=== PATIENT | male | born 1960 | race Caucasian/White ===

== ENCOUNTER 2018-02-17 09:44 | Inpatient (IN) | payer OTHER ==
[2018-02-17] MEDS ORDERED: RX INFO: IV CONTRAST WAS GIVEN 1 EACH MISC MISCELLANE PRN (10:19)
[2018-02-17] MEDS ORDERED: KETOROLAC 30 MG/ML 1 ML VIAL IVP STA (10:20)
--- NOTE | 2018-02-17 10:24 | ED ---
General Adult HPI - General Chief complaint: Skin/Abscess/Foreign Body Stated complaint: POSS FISTULA ON REAREND Time Seen by Provider: 02/17/18 10:15 Source: patient, RN notes reviewed, old records reviewed Mode of arrival: ambulatory Limitations: no limitations - History of Present Illness Initial comments: 57-year-old male presents with pain and swelling near his rectum. Patient states that the symptoms have been present for the past several days. He did develop subjective fever and chills over the past 48 hours. He's had no pain with defecation. No dysuria. No abdominal pain. No scrotal pain or swelling. Patient has no history of diabetes. He is otherwise healthy. He does have a remote history of perirectal fistula which was surgically removed according to the patient approximately 12-14 years ago. No chest pain or shortness of breath. No nausea vomiting or diarrhea. - Related Data Home Medications Medication Instructions Recorded Confirmed Ibuprofen [Motrin Ib] 800 mg PO TID PRN 02/17/18 02/17/18 Allergies Allergy/AdvReac Type Severity Reaction Status Date / Time No Known Allergies Allergy Verified 02/17/18 10:00 Review of Systems ROS Statement: Those systems with pertinent positive or pertinent negative responses have been documented in the HPI. ROS Other: All systems not noted in ROS Statement are negative. Past Medical History Past Medical History: No Reported History History of Any Multi-Drug Resistant Organisms: None Reported Additional Past Surgical History / Comment(s): hemmorhoid surgery, Past Psychological History: No Psychological Hx Reported Smoking Status: Current every day smoker Past Alcohol Use History: Occasional Past Drug Use History: None Reported General Exam Limitations: no limitations General appearance: alert, in no apparent distress Head exam: Present: atraumatic, normocephalic Eye exam: Present: normal appearance, PERRL ENT exam: Present: normal exam Neck exam: Present: normal inspection. Absent: tenderness, meningismus Respiratory exam: Present: normal lung sounds bilaterally. Absent: respiratory distress Cardiovascular Exam: Present: normal rhythm, tachycardia GI/Abdominal exam: Present: soft. Absent: distended, tenderness Rectal exam: Present: tenderness, other (Large area of cellulitis in the right gluteal region, adjacent to the rectum. There is surrounding induration and cellulitis. With central fluctuance. There is adjacent cellulitis in the left gluteal region with 1 cm area of fluctuance and minimal purulent drainage.) Extremities exam: Present: normal inspection, full ROM, tenderness Back exam: Present: normal inspection. Absent: full ROM, tenderness Neurological exam: Present: alert, oriented X3 Psychiatric exam: Present: normal affect, normal mood Skin exam: Present: warm, dry Course Vital Signs 02/17/18 02/17/18 09:46 12:45 Temperature 97.8 F Pulse Rate 107 H 83 Respiratory 20 16 Rate Blood Pressure 136/100 150/90 O2 Sat by Pulse 99 97 Oximetry Medical Decision Making - Medical Decision Making 57-year-old with fever, and concern for perirectal abscess. Laboratory studies are obtained, white blood cell count is mildly elevated at 12.2, platelets are also reactive. Lactic acid is normal. CMP unremarkable. Blood cultures pending. CT is obtained which does show soft tissue gas, and concern for perirectal abscess. Case discussed with Dr. Banks, who will admit the patient. Patient will be continued on IV antibiotics. Diagnosis: Perirectal abscess. - Lab Data Result diagrams: 02/17/18 10:42 02/17/18 10:42 Lab Results 02/17/18 02/17/18 02/17/18 Range/Units 10:42 10:42 10:42 WBC 12.2 H (3.8-10.6) k/uL RBC 4.64 (4.30-5.90) m/uL Hgb 14.0 (13.0-17.5) gm/dL Hct 42.9 (39.0-53.0) % MCV 92.3 (80.0-100.0) fL MCH 30.2 (25.0-35.0) pg MCHC 32.7 (31.0-37.0) g/dL RDW 12.8 (11.5-15.5) % Plt Count 549 H (150-450) k/uL Neutrophils % 73 % Lymphocytes % 17 % Monocytes % 6 % Eosinophils % 2 % Basophils % 1 % Neutrophils # 8.9 H (1.3-7.7) k/uL Lymphocytes # 2.1 (1.0-4.8) k/uL Monocytes # 0.7 (0-1.0) k/uL Eosinophils # 0.3 (0-0.7) k/uL Basophils # 0.1 (0-0.2) k/uL Sodium 142 (137-145) mmol/L Potassium 4.2 (3.5-5.1) mmol/L Chloride 103 (98-107) mmol/L Carbon Dioxide 27 (22-30) mmol/L Anion Gap 12 mmol/L BUN 12 (9-20) mg/dL Creatinine 0.50 L (0.66-1.25) mg/dL Est GFR (CKD-EPI)AfAm >90 (>60 ml/min/1.73 sqM) Est GFR (CKD-EPI)NonAf >90 (>60 ml/min/1.73 sqM) Glucose 73 L (74-99) mg/dL Plasma Lactic Acid Hardeep 0.9 (0.7-2.0) mmol/L Calcium 8.7 (8.4-10.2) mg/dL Total Bilirubin 0.2 (0.2-1.3) mg/dL AST 20 (17-59) U/L ALT 26 (21-72) U/L Alkaline Phosphatase 72 (38-126) U/L Total Protein 6.2 L (6.3-8.2) g/dL Albumin 3.1 L (3.5-5.0) g/dL Disposition Clinical Impression: Perirectal abscess Disposition: ADMITTED IP TO THIS [facility] Condition: Stable Is patient prescribed a controlled substance at d/c from ED?: No Referrals: None,Stated [Primary Care Provider] - 1-2 days Decision to Admit Reason: Admit from EC Decision Date: 02/17/18 Decision Time: 13:10
[2018-02-17 11:08] LABS: Basophils # (A) 0.1 k/uL (0-0.2); Basophils % (A) 1 %; Eosinophils # (A) 0.3 k/uL (0-0.7); Eosinophils % (A) 2 %; HCT 42.9 % (39.0-53.0); Lymphocytes # (A) 2.1 k/uL (1.0-4.8); Lymphocytes % (A) 17 %; MCH 30.2 pg (25.0-35.0); MCHC 32.7 g/dL (31.0-37.0); MCV 92.3 fL (80.0-100.0); Mean Platelet Volume 6.7; Monocytes # (A) 0.7 k/uL (0-1.0); Monocytes % (A) 6 %; Neutrophils # (A) 8.9 k/uL (1.3-7.7); Neutrophils % (A) 73 %; Platelet Count 549 k/uL (150-450); RBC 4.64 m/uL (4.30-5.90); RDW 12.8 % (11.5-15.5); WBC 12.2 k/uL (3.8-10.6)
[2018-02-17 11:14] LABS: ALT 26 U/L (21-72); AST 20 U/L (17-59); Albumin 3.1 g/dL (3.5-5.0); Alkaline Phosphatase 72 U/L (38-126); Anion Gap 12 mmol/L; Blood Urea Nitrogen 12 mg/dL (9-20); Calcium 8.7 mg/dL (8.4-10.2); Carbon Dioxide 27 mmol/L (22-30); Chloride 103 mmol/L (98-107); Glucose 73 mg/dL (74-99); Potassium 4.2 mmol/L (3.5-5.1); Sodium 142 mmol/L (137-145); Total Bilirubin 0.2 mg/dL (0.2-1.3); Total Protein 6.2 g/dL (6.3-8.2)
[2018-02-17] MEDS ORDERED: LEVOFLOXACIN 500MG-D5W PMX 500 MG in DEXTROSE/WATER 1 100ML.BAG IVPB STA (11:33)
[2018-02-17] MEDS ORDERED: metroNIDAZOLE-NS PMX 500 MG in SALINE 1 100ML.BAG IVPB STA (11:33)
[2018-02-17] MEDS ORDERED: SODIUM CHLORIDE 0.9% 500 ML IV ONE (11:38)
--- NOTE | 2018-02-17 11:46 | CT ---
EXAMINATION TYPE: CT abdomen pelvis w con DATE OF EXAM: 02/17/2018 COMPARISON: NONE HISTORY: Perirectal pain CT DLP: 411.9 mGycm Automated exposure control for dose reduction was used. TECHNIQUE: Helical acquisition of images was performed from the lung bases through the pelvis. CONTRAST: Performed without Oral Contrast and with IV Contrast, patient injected with 100 mL of Isovue 300. FINDINGS: LUNG BASES: 6 mm right basilar pulmonary nodule contains a peripheral punctate calcification in could relate to a partially calcified granuloma. LIVER/GB: No significant abnormality is appreciated. No cholelithiasis. PANCREAS: No significant abnormality is seen. No ductal dilatation. SPLEEN: No significant abnormality is seen. Small splenule seen adjacent to the sleetmute spleen. ADRENALS: No significant abnormality is seen. KIDNEYS: 7 millimeters too small to accurately characterize left renal lesion is low-density and coul d represent a cyst similarly on the right there is a 6 mm lesion that is too small to accurately patrice acterize within the midpole anteriorly. No hydronephrosis. ADENOPATHY: No greater than 1 cm short axis lymph node is seen within the abdomen or pelvis. REPRODUCTIVE ORGANS: No significant abnormality is seen URINARY BLADDER: Circumferential wall thickening may relate to incomplete distention of the surround ing inflammatory change. Alternatively cystitis is possible. OSSEOUS STRUCTURES: Mild degenerative change of the spine. Osseous structures appear intact. BOWEL: There is an air and fluid containing multiloculated perirectal abscess beginning in the right paracentral gluteal fold (with the fluid containing area in this region measuring only 1.2 by 1.5 cm ). There a surrounding phlegmonous changes and foci of subcutaneous emphysema with a larger component on image 83 measuring approximately 2.9 x 1.7 cm. Superior to this, with a phlegmonous area of conne ction, there is an additional component surrounding the rectum measuring approximately 4.9 x 2.2 cm o n image 76 along the anal verge. This extends around the rectum with air seen left laterally and ante riorly on images 72 and 70 with air collection anteriorly measuring 2.4 cm posterior to the seminal v esicles. There is circumferential rectal wall thickening and inflammatory fat stranding in the mesore ctal fat. Inflammatory fat stranding extends upward and there is haziness throughout the entirety of the mesentery that could relate to mild mesenteric congestion or sequela of inflammatory change. No o ther focal areas of bowel wall thickening are appreciated within the limitations of this noncontrast enhanced exam. The stomach is nondistended likely accounting for the gastric fold thickening. No dila lizette bowel. OTHER: Normal calcific atheromatous changes are seen of the abdominal aorta and its branches. IMPRESSION: 1. MULTILOCULATED FLUID COLLECTION WITH A SINUS TRACT EXTENDING FROM THE RIGHT GLUTEAL FOLD TO SURROU ND THE RECTUM AT THE ANAL VERGE AND EXTENDING CRANIALLY TO THE LEVEL OF THE SEMINAL VESICLES. THIS IS PREDOMINANTLY PHLEGMONOUS CHANGE AND AIR CONTAINING WITH ONLY A SMALL AMOUNT OF FLUID. THERE IS RESU LTANT CIRCUMFERENTIAL RECTAL WALL THICKENING INDICATING PROCTITIS AND PERIRECTAL ABSCESS WITH SURROUN DING INFLAMMATORY FAT STRANDING. NO EVIDENCE OF BOWEL OBSTRUCTION. 2. PROBABLE RIGHT BASILAR PARTIALLY CALCIFIED PULMONARY GRANULOMA. FOLLOW-UP COULD BE PERFORMED IN 6 MONTHS TO ASSESS FOR STABILITY.
[2018-02-17] MEDS: SODIUM CHLORIDE 0.9% 1,000 ML IV SCH ×2 (12:41→23:50)
[2018-02-17] MEDS ORDERED: NALOXONE 0.4 MG/ML 1 ML VIAL IV PRN (13:05)
[2018-02-17] MEDS ORDERED: PIPERACILLIN-TAZOBACTAM 3.375 GM in DEXTROSE/WATER 1 50ML.BAG IVPB STA (13:05)
[2018-02-17] MEDS ORDERED: ACETAMINOPHEN TAB 325 MG TAB PO PRN (13:05)
[2018-02-17] MEDS: MORPHINE SULFATE 4 MG/ML SYRINGE IV PRN ×2 (14:41→18:22)
[2018-02-17 14:53] VITALS: BMI 19.8
[2018-02-17] MEDS ORDERED: LORazepam 2 MG/ML INJ IV PRN ×3 (16:45)
[2018-02-17] MEDS: PIPERACILLIN-TAZOBACTAM 3.375 GM in DEXTROSE/WATER 1 50ML.BAG IVPB SCH ×2 (17:06→23:49)
[2018-02-17] MEDS ORDERED: ALPRAZolam 0.25 MG TAB PO PRN (20:30)
[2018-02-17] MEDS ORDERED: TEMAZEPAM 15 MG CAP PO PRN (20:30)
--- NOTE | 2018-02-17 21:45 | CONS ---
CONSULTATION REASON FOR CONSULTATION: Advice regarding history of ETOH and other multiple medical issues, requested by Dr. Banks. HISTORY OF PRESENT ILLNESS: This 57-year-old gentleman with a past medical history of no significant medical issues except hemorrhoid surgery and fistula repair and possible perirectal abscess about 14 years ago, not being followed by a primary physician in the outpatient setting, was complaining of pain and swelling in the rectal area for the last several days. Because of increasing pain, especially on the right side, the patient came to [facility] and was admitted for further evaluation and treatment. Perirectal abscess was suspected and patient was admitted for further evaluation and treatment. Abdominal/pelvis CT scan was also done which showed a multi-loculated fluid collection in the sinus with a sinus tract extending from the right gluteal fold to surround the rectum at the anal verge and extending cranially to the level of the seminal vesicles. The patient also has a significant history of smoking and alcohol. Patient drinks about 4-5 drinks a day. PAST MEDICAL HISTORY: 1. History of previous hemorrhoid surgery. 2. Fistula repair. 3. Perirectal abscess. MEDICATIONS: Ibuprofen p.r.n. ALLERGIES: NONE. FAMILY HISTORY: History of CVA, TIA, diabetes mellitus. SOCIAL HISTORY: History of smoking. History of alcohol. REVIEW OF SYSTEMS: ENT: No diminished hearing. No diminished vision. CARDIOVASCULAR SYSTEM: No angina, palpitations. RESPIRATORY SYSTEM: No cough, hemoptysis. GI: Perirectal abscess present. : No dysuria or retention. NERVOUS SYSTEM: No numbness, weakness. ALLERGY/IMMUNOLOGY: No asthma, hayfever. MUSCULOSKELETAL: As mentioned earlier. HEMATOLOGY/ONCOLOGY: No history of anemia. ENDOCRINE: No history of diabetes, hypothyroidism. CONSTITUTIONAL: As mentioned earlier. DERMATOLOGY: Negative. RHEUMATOLOGY: Negative. PSYCHIATRY: As mentioned earlier. PHYSICAL EXAMINATION: Patient alert and oriented x3. ABDOMEN: Perirectal abscess present. ASSESSMENT: 1. Perirectal abscess with possible sepsis. 2. Severe pain. 3. History of previous hemorrhoid surgery and fistula repair. 4. Increased white count. 5. History of nicotine dependence. 6. History of ethanol. RECOMMENDATIONS AND DISCUSSION: In this 57-year-old gentleman who presented with multiple medical issues, we will monitor the patient closely, continue the current medications, continue symptomatic treatment, broad-spectrum IV antibiotics. I would also recommend DVT prophylaxis. Symptomatic treatment of the pain. I would also recommend starting the patient on Zosyn. I would also recommend CIWA protocol as well as smoking cessation advice. We will follow the patient closely with you. Patient may be asked to follow up with a primary physician in the outpatient setting. Thank you for letting us participate in the care of this patient. MMODL / IJN: [id number] /
[2018-02-17] MEDS: NICOTINE 14MG/24HR PATCH TRANSDERM SCH (22:34)
[2018-02-17] MEDS: HEPARIN SODIUM,PORCINE 5,000 UNIT/ML 1 ML VIAL SQ SCH (22:34)
[2018-02-18] MEDS: KETOROLAC 30 MG/ML 1 ML VIAL IVP PRN ×4 (00:51→21:52)
[2018-02-18] MEDS: PANTOPRAZOLE 40 MG TABLET PO SCH (07:45)
[2018-02-18] MEDS: PIPERACILLIN-TAZOBACTAM 3.375 GM in DEXTROSE/WATER 1 50ML.BAG IVPB SCH ×3 (07:46→23:34)
[2018-02-18] MEDS: NICOTINE 14MG/24HR PATCH TRANSDERM SCH (07:46)
[2018-02-18 08:19] LABS: Basophils % (A) 0 %; Eosinophils # (A) 0.3 k/uL (0-0.7); Eosinophils % (A) 4 %; HCT 38.3 % (39.0-53.0); HGB 12.3 gm/dL (13.0-17.5); Lymphocytes # (A) 1.9 k/uL (1.0-4.8); Lymphocytes % (A) 22 %; MCH 29.8 pg (25.0-35.0); MCHC 32.1 g/dL (31.0-37.0); MCV 92.6 fL (80.0-100.0); Mean Platelet Volume 6.8; Monocytes # (A) 0.6 k/uL (0-1.0); Monocytes % (A) 7 %; Neutrophils # (A) 5.9 k/uL (1.3-7.7); Neutrophils % (A) 67 %; Platelet Count 553 k/uL (150-450); RBC 4.13 m/uL (4.30-5.90); RDW 12.8 % (11.5-15.5); WBC 8.9 k/uL (3.8-10.6)
[2018-02-18 08:22] LABS: ALT 25 U/L (21-72); AST 15 U/L (17-59); Albumin 2.7 g/dL (3.5-5.0); Alkaline Phosphatase 62 U/L (38-126); Anion Gap 9 mmol/L; Blood Urea Nitrogen 11 mg/dL (9-20); Calcium 8.4 mg/dL (8.4-10.2); Carbon Dioxide 28 mmol/L (22-30); Chloride 102 mmol/L (98-107); Glucose 78 mg/dL (74-99); Potassium 4.1 mmol/L (3.5-5.1); Sodium 139 mmol/L (137-145); Total Bilirubin 0.2 mg/dL (0.2-1.3); Total Protein 5.4 g/dL (6.3-8.2)
[2018-02-18] MEDS ORDERED: LIDOCAINE 1%-EPI 1:100,000 30 ML VIAL SQ STA (09:20)
[2018-02-18] MEDS ORDERED: HYDROmorphone 0.5 MG/0.5 ML SYRINGE IVP STA (09:21)
[2018-02-18] MEDS ORDERED: ONDANSETRON 4 MG/2 ML VIAL IVP STA (09:21)
--- NOTE | 2018-02-18 09:40 | P.GSHP ---
History of Present Illness H&P Date: 02/18/18 Chief Complaint: Right perirectal abscess This a 57-year-old male who has complaints of anal pain and swelling. He is seen in the emergency room found have a right perirectal abscess. He's been admitted to the hospital for treatment. Patient has had a previous perirectal abscess approximately 10 years ago. Past Medical History Past Medical History: No Reported History History of Any Multi-Drug Resistant Organisms: None Reported Additional Past Surgical History / Comment(s): hemmorhoid surgery, fistula repair Past Psychological History: No Psychological Hx Reported Smoking Status: Current every day smoker Past Alcohol Use History: Occasional Past Drug Use History: None Reported - Past Family History Father Family Medical History: CVA/TIA, Diabetes Mellitus Mother Family Medical History: Cancer Brother(s) Family Medical History: Cancer, Myocardial Infarction (VT) Medications and Allergies Home Medications Medication Instructions Recorded Confirmed Type Ibuprofen [Motrin Ib] 800 mg PO TID PRN 02/17/18 02/17/18 History Allergies Allergy/AdvReac Type Severity Reaction Status Date / Time No Known Allergies Allergy Verified 02/17/18 10:00 Surgical - Exam Vital Signs Temp Pulse Resp BP Pulse Ox 97.8 F 107 H 20 136/100 99 02/17/18 09:46 02/17/18 09:46 02/17/18 09:46 02/17/18 09:46 02/17/18 09:46 - General well developed, no distress - Eyes PERRL - ENT normal pinna - Neck no masses - Respiratory normal expansion - Cardiovascular Rhythm: regular - Abdomen Abdomen: soft, non tender - Rectum Right perirectal abscess with induration swelling. Results - Labs 02/18/18 07:37 02/18/18 07:37 Abnormal Lab Results - Last 24 Hours (Table) 02/17/18 02/17/18 02/18/18 Range/Units 10:42 10:42 07:37 WBC 12.2 H (3.8-10.6) k/uL RBC 4.13 L (4.30-5.90) m/uL Hgb 12.3 L (13.0-17.5) gm/dL Hct 38.3 L (39.0-53.0) % Plt Count 549 H 553 H (150-450) k/uL Neutrophils # 8.9 H (1.3-7.7) k/uL Creatinine 0.50 L (0.66-1.25) mg/dL Glucose 73 L (74-99) mg/dL AST (17-59) U/L Total Protein 6.2 L (6.3-8.2) g/dL Albumin 3.1 L (3.5-5.0) g/dL 02/18/18 Range/Units 07:37 WBC (3.8-10.6) k/uL RBC (4.30-5.90) m/uL Hgb (13.0-17.5) gm/dL Hct (39.0-53.0) % Plt Count (150-450) k/uL Neutrophils # (1.3-7.7) k/uL Creatinine 0.62 L (0.66-1.25) mg/dL Glucose (74-99) mg/dL AST 15 L (17-59) U/L Total Protein 5.4 L (6.3-8.2) g/dL Albumin 2.7 L (3.5-5.0) g/dL Diabetes panel 02/17/18 02/18/18 Range/Units 10:42 07:37 Sodium 142 139 (137-145) mmol/L Potassium 4.2 4.1 (3.5-5.1) mmol/L Chloride 103 102 (98-107) mmol/L Carbon Dioxide 27 28 (22-30) mmol/L BUN 12 11 (9-20) mg/dL Creatinine 0.50 L 0.62 L (0.66-1.25) mg/dL Glucose 73 L 78 (74-99) mg/dL Calcium 8.7 8.4 (8.4-10.2) mg/dL AST 20 15 L (17-59) U/L ALT 26 25 (21-72) U/L Alkaline Phosphatase 72 62 (38-126) U/L Total Protein 6.2 L 5.4 L (6.3-8.2) g/dL Albumin 3.1 L 2.7 L (3.5-5.0) g/dL Calcium panel 02/17/18 02/18/18 Range/Units 10:42 07:37 Calcium 8.7 8.4 (8.4-10.2) mg/dL Albumin 3.1 L 2.7 L (3.5-5.0) g/dL Pituitary panel 02/17/18 02/18/18 Range/Units 10:42 07:37 Sodium 142 139 (137-145) mmol/L Potassium 4.2 4.1 (3.5-5.1) mmol/L Chloride 103 102 (98-107) mmol/L Carbon Dioxide 27 28 (22-30) mmol/L BUN 12 11 (9-20) mg/dL Creatinine 0.50 L 0.62 L (0.66-1.25) mg/dL Glucose 73 L 78 (74-99) mg/dL Calcium 8.7 8.4 (8.4-10.2) mg/dL Adrenal panel 02/17/18 02/18/18 Range/Units 10:42 07:37 Sodium 142 139 (137-145) mmol/L Potassium 4.2 4.1 (3.5-5.1) mmol/L Chloride 103 102 (98-107) mmol/L Carbon Dioxide 27 28 (22-30) mmol/L BUN 12 11 (9-20) mg/dL Creatinine 0.50 L 0.62 L (0.66-1.25) mg/dL Glucose 73 L 78 (74-99) mg/dL Calcium 8.7 8.4 (8.4-10.2) mg/dL Total Bilirubin 0.2 0.2 (0.2-1.3) mg/dL AST 20 15 L (17-59) U/L ALT 26 25 (21-72) U/L Alkaline Phosphatase 72 62 (38-126) U/L Total Protein 6.2 L 5.4 L (6.3-8.2) g/dL Albumin 3.1 L 2.7 L (3.5-5.0) g/dL Assessment and Plan Assessment: Right perirectal abscess. We'll perform incision and drainage.
[2018-02-18] MEDS: HEPARIN SODIUM,PORCINE 5,000 UNIT/ML 1 ML VIAL SQ SCH ×2 (10:27→21:30)
--- NOTE | 2018-02-18 10:29 | P.OP ---
Date of Procedure: 02/18/18 Preoperative Diagnosis: Right perianal abscess Postoperative Diagnosis: Right perianal abscess Procedure(s) Performed: Incision and drainage of right perianal abscess Anesthesia: local Surgeon: Mj Banks Pathology: none sent Condition: stable Disposition: PACU Description of Procedure: The patient was placed on his bed in the lateral position. His hernia was prepped and draped usual fashion. The skin was anesthetized over the abscess site. Using a 15 blade a cruciate incision was made in the skin. Using a pair hemostats the abscess cavity is entered. The wound was packed with wet-to-dry saline gauze. Patient top procedure well.
[2018-02-18] MEDS: SODIUM CHLORIDE 0.9% 1,000 ML IV SCH (16:20)
--- NOTE | 2018-02-18 23:01 | PN ---
PROGRESS NOTE DATE OF SERVICE: 02/18/2018 INTERVAL HISTORY: This 57-year-old gentleman admitted with a perirectal abscess and possible sepsis is being closely monitored. Dr. Banks is following the patient closely. The patient underwent incision and drainage of right perianal abscess by Dr. Banks. No chest pain. No palpitations. No fever. EXAM: Alert and oriented x3. Pulse is 63, blood pressure 139/84, respirations 16, temperature 97.5, pulse ox 97% room air. HEENT: Conjunctivae normal. NECK: No jugular venous distention. CARDIOVASCULAR: S1, S2 muffled. RESPIRATORY: Breath sounds diminished in the bases. No rhonchi. No crackles. ABDOMEN: Soft, nontender. LEGS: No edema. No swelling. NERVOUS SYSTEM: No focal deficits. LABS: WBC 8, hemoglobin 12.3. Cultures are noted. ASSESSMENT: 1. Acute right perirectal abscess with possible sepsis, status post incision and drainage. 2. Severe pain. 3. History of previous hemorrhoid surgery, fistula repair. 4. Increased WBC. 5. History of nicotine dependence. 6. History of EtOH. RECOMMENDATIONS AND DISCUSSION: Recommend to continue current medical management. Continue with antibiotics. Continue the CIWA protocol. There are no signs of withdrawals at this time. However, will continue to monitor. Prognosis guarded. Further recommendations to follow. MMODL / IJN: [id number] /
--- NOTE | 2018-02-19 03:07 | CONS ---
CONSULTATION DATE OF SERVICE: 02/18/2018 REASON FOR CONSULTATION: Left perirectal abscess. HISTORY OF PRESENT ILLNESS: The patient is a 57-year-old male who apparently developed a pimple on the right buttock area about a week ago. The patient said that he has those in the past and they would go away, however, this one did not go away and continued to get bigger and bigger in size and become painful. It was almost 9/10 by the time he presented to the hospital. The patient complaining of some fever. Denies any high-grade, chills. Some nausea but no vomiting. With these symptoms, the patient has been evaluated by the ER physician. The patient did have a CT of abdomen and pelvis completed which shows multiloculated fluid collection with sinus tract extending from the right gluteal floor to surround the rectum at the anal verge and extending to the level of the seminal vesicle. The patient subsequently did have a bedside drainage of this abscess by Dr. Banks. The patient did mention that last night when he was sitting in the bathroom, he did have a gush of blood but there only was some purulent material when the area was drained. Unfortunately no cultures were done. The patient currently being treated with tazobactam. Infectious Disease was consulted for further recommendation regarding antibiotic therapy. REVIEW OF SYSTEMS: CONSTITUTIONAL: Positive for weakness and fever, but denies any chills. EYES: No complaint. ENT: No complaint. RESPIRATORY: No complaint. CARDIOVASCULAR: No complaint. GENITOURINARY: No complaint chest: GASTROINTESTINAL: As per HPI. MUSCULOSKELETAL: No complaint. : As per HPI. PSYCHOLOGICAL: No complaint. NEUROLOGIC: No complaint. PAST MEDICAL HISTORY: No major illnesses. PAST SURGICAL HISTORY: Positive hemorrhoidal surgery. SOCIAL HISTORY: Current smoker. Rarely drinks. No drug use. FAMILY HISTORY: . ALLERGIES: No known drug allergies. MEDICATION: Medications include the patient is currently on Tylenol, Xanax, heparin, Toradol, Ativan, morphine sulfate, Narcan, Protonix, tazobactam, Restoril. EXAMINATION: Blood pressure is 139/84, pulse of 63, temperature 97.5, he is sating 97% on room air. GENERAL DESCRIPTION: Middle-aged male lying in bed in no distress. No tachypnea or accessory muscle of respiration use. HEENT: No pallor or scleral icterus. Oral mucosa is moist. NECK: Trachea central. No thyromegaly. LUNGS: Unlabored breathing. Clear to auscultation anteriorly. HEART: S1-S2 regular ABDOMEN: tenderness. No guarding, no rigidity. No organomegaly. EXTREMITIES: No edema of the feet. Examination of the perirectal area on the left, he did have an area of induration. Packing was removed, was mostly bloody drainage. The area was cleaned and deep cultures were obtained, both aerobic and anaerobic. NEUROLOGIC: Patient is awake, alert, oriented x3. Mood and affect normal. LABS: Hemoglobin 12.2, white count 8.9, admission white count 12.2 with a BUN of 11, creatinine 0.62. Electrolytes have been normal. Liver enzymes are normal. Blood culture so far negative. DIAGNOSTIC IMPRESSION AND PLAN: Patient with right perirectal abscess status post drainage with a CT suggestive of possible extending down to the GI tract with concern for possible fistulous communication not entirely excluded and more likely will need to cover for the gram negative, both aerobes and anaerobes. PLAN: 1. Wound culture has been obtained, both aerobic and anaerobic to guide further antibiotic therapy. 2. Antibiotic currently in the form of Zosyn should provide coverage for the pathogenesis . 3. We will follow up on his clinical condition and culture to further adjust medication if needed. Thank you for this consultation. I will follow this patient along with you. MMODL / IJN: [id number] /
[2018-02-19] MEDS: SODIUM CHLORIDE 0.9% 1,000 ML IV SCH ×2 (05:25→17:16)
[2018-02-19] MEDS: KETOROLAC 30 MG/ML 1 ML VIAL IVP PRN ×3 (05:36→22:43)
[2018-02-19] MEDS: PANTOPRAZOLE 40 MG TABLET PO SCH (07:48)
[2018-02-19] MEDS: PIPERACILLIN-TAZOBACTAM 3.375 GM in DEXTROSE/WATER 1 50ML.BAG IVPB SCH ×3 (07:48→22:43)
[2018-02-19] MEDS: HEPARIN SODIUM,PORCINE 5,000 UNIT/ML 1 ML VIAL SQ SCH ×2 (07:49→20:03)
[2018-02-19] MEDS: NICOTINE 14MG/24HR PATCH TRANSDERM SCH (07:49)
--- NOTE | 2018-02-19 09:02 | P.PN ---
Progress Note - Text Progress Note Date: 02/19/18 The patient states he feels better. He has less perianal pain. On exam there is less induration and swelling of his right perianal abscess. There is some purulent drainage. Patiently receive IV antibiotics and local wound care. We dysphagia discharged home the next 24-48 hours.
--- NOTE | 2018-02-19 16:53 | PN ---
PROGRESS NOTE DATE OF SERVICE: 02/19/2018. REASON FOR FOLLOW UP: Right perirectal abscess. INTERVAL HISTORY: The patient is afebrile. He is currently breathing comfortably. Denies having any chest pain, shortness of breath or cough. No abdominal pain. Pain to the gluteal area has slightly decreased and has drainage on the dressing. At the time, the patient was taking a shower. EXAMINATION: Blood pressure 120/82 with a pulse of 59, temperature 97.2. He is 97% on room air. General description is a middle-aged male lying in bed in no distress. RESPIRATORY SYSTEM: Unlabored breathing. Clear to auscultation anteriorly. HEART: S1, S2. Regular rate and rhythm. ABDOMEN: Soft. No tenderness. RIGHT GLUTEAL AREA: Overall swelling, redness, induration has decreased. No drainage was noticed. LABS: White count normalized to 8.9 with a BUN of 11, creatinine 0.62 . Cultures obtained yesterday are currently pending. DIAGNOSTIC IMPRESSION AND PLAN: Patient with right perirectal abscess, status post drainage. We are waiting for the culture to finalize to determine his discharge antibiotics. Patient at this time will be continued on the Zosyn. Continue with supportive care. MMODL / IJN: [id number] /
--- NOTE | 2018-02-19 18:35 | PN ---
PROGRESS NOTE DATE OF SERVICE: 02/19/2017 This 57-year-old gentleman who was admitted with right perirectal abscess, had incision and drainage. The patient also has history of alcohol but no evidence of withdrawal is evident at this time. No chest pain. No palpitations. No fever. PHYSICAL EXAM: Alert and oriented x3. The pulse is 59, blood pressure 139/84, respirations 16, temperature 98.2, pulse ox 98% on room air HEENT: Conjunctivae normal. Oral mucosa moist. NECK: No JVD. CARDIOVASCULAR: S1, S2. RESPIRATORY: Diminished breath sounds at the bases. No rhonchi, no crackles. ABDOMEN: Soft, nontender. LEGS: No swelling. NERVOUS SYSTEM: No focal deficits. LABS: WBC 8.1, hemoglobin 12.3, albumin 2.7. ASSESSMENT: 1. Acute right perirectal abscess with possible sepsis status post incision and drainage with severe pain. 2. History of previous hemorrhoid surgery. 3. Increased WBC. 4. History of nicotine dependence. 5. History of ETOH. RECOMMENDATIONS: Recommend to continue current management, continue symptomatic treatment. Cultures are negative so far. Continue with IV antibiotics. Closely follow with Dr. Banks. Further recommendations to follow. MMODL / IJN: [id number] /
[2018-02-20] MEDS: PANTOPRAZOLE 40 MG TABLET PO SCH (07:54)
[2018-02-20] MEDS: NICOTINE 14MG/24HR PATCH TRANSDERM SCH (07:54)
[2018-02-20] MEDS: HEPARIN SODIUM,PORCINE 5,000 UNIT/ML 1 ML VIAL SQ SCH ×2 (07:54→20:21)
[2018-02-20] MEDS: PIPERACILLIN-TAZOBACTAM 3.375 GM in DEXTROSE/WATER 1 50ML.BAG IVPB SCH ×3 (07:54→23:02)
[2018-02-20] MEDS: SODIUM CHLORIDE 0.9% 1,000 ML IV SCH ×2 (07:55→20:21)
[2018-02-20] MEDS: KETOROLAC 30 MG/ML 1 ML VIAL IVP PRN ×2 (08:12→21:49)
--- NOTE | 2018-02-20 14:07 | P.PN ---
Progress Note - Text Progress Note Date: 02/20/18 The patient still has complaints of some perianal pain and swelling. Overall he feels better. On exam his vital signs are stable. There is decreased swelling of his perineum. Patient did receive IV antibiotics for his. Glasses. Hopefully he'll be discharged home in 24-48 hours.
--- NOTE | 2018-02-20 17:51 | PN ---
PROGRESS NOTE DATE OF SERVICE: 02/20/2018 REASON FOR FOLLOWUP: Right perirectal abscess. INTERVAL HISTORY: The patient is currently afebrile. He is breathing comfortably. Denies any chest pain, shortness of breath or cough. No abdominal pain. Overall pain to the perirectal area has been decreased. Did have slight drainage morning. EXAMINATION: Blood pressure 126/83 with a pulse of 62, temperature 98.7, 99% on room air. GENERAL DESCRIPTION: A middle-aged male lying in bed in no distress. RESPIRATORY SYSTEM: Unlabored breathing. Clear to auscultation anteriorly. HEART: S1, S2. Regular rate and rhythm. Right gluteal area overall swelling and redness has improved. No induration. No drainage was noticed. LAB: No new lab has been obtained today. The cultures are negative. DIAGNOSTIC IMPRESSION AND PLAN: Patient with a right perirectal abscess. Culture so far negative. Currently on Zosyn. If the cultures remain negative by tomorrow hopefully he can be switched to oral antibiotics with close outpatient followup. Continue supportive care. MMODL / IJN: [id number] /
--- NOTE | 2018-02-20 22:30 | PN ---
PROGRESS NOTE DATE OF SERVICE: 02/20/2018. INTERVAL HISTORY: This 57-year-old gentleman admitted with acute right perirectal abscess is being closely monitored. The white count is normalized. No chest pain. No palpitations. No fever. Cultures are showing beta hemolytic strep group C. No chest pain. No palpitations. No fever. EXAM: Alert, oriented times three. Pulse 60, blood pressure 130/85, respirations 16, temperature 98.2, pulse ox 98% on room air. HEENT conjunctivae normal. Oral mucosa moist. NECK is no jugular venous distention. No carotid bruit. No lymph node enlargement. CARDIOVASCULAR SYSTEM: S1, S2 muffled. RESPIRATION: Breath sounds diminished in the bases. No rhonchi. No crackles. ABDOMEN: Soft, nontender. No mass palpable. LEGS: No edema. No swelling. CENTRAL NERVOUS SYSTEM: No focal deficits. LABS: Reviewed. ASSESSMENT: 1. Acute right perirectal abscess with possible sepsis. 2. Status post incision and drainage with severe pain growing beta-hemolytic strep group C. 3. History of previous hemorrhoid surgery. 4. Increased WBC. 5. History of nicotine dependence. 6. History of EtOH. RECOMMENDATIONS AND DISCUSSION: Recommend to continue current medications, monitoring, management and symptomatic treatment. Otherwise, at this time, I recommend continue broad spectrum IV antibiotics. Guarded prognosis. Further recommendations to follow. MMODL / IJN: [id number] /
[2018-02-21 06:15] VITALS: BP 128/74; PULSE 61; RESP 18; TEMP 97.4
[2018-02-21] MEDS: PIPERACILLIN-TAZOBACTAM 3.375 GM in DEXTROSE/WATER 1 50ML.BAG IVPB SCH (08:28)
[2018-02-21] MEDS: HEPARIN SODIUM,PORCINE 5,000 UNIT/ML 1 ML VIAL SQ SCH (08:28)
[2018-02-21] MEDS: PANTOPRAZOLE 40 MG TABLET PO SCH (08:28)
[2018-02-21] MEDS: NICOTINE 14MG/24HR PATCH TRANSDERM SCH (08:28)
[2018-02-21] MEDS: SODIUM CHLORIDE 0.9% 1,000 ML IV SCH (10:31)
--- NOTE | 2018-02-21 12:10 | PN ---
PROGRESS NOTE DATE OF SERVICE: 02/21/2018 REASON FOR FOLLOWUP: Right perirectal abscess. INTERVAL HISTORY: The patient is afebrile. He is currently breathing comfortably. Denies having any chest pain or shortness of breath or cough. No abdominal pain. Pain to the gluteal area has improved. PHYSICAL EXAMINATION: On examination, blood pressure is 122/74 with a pulse of 51, temperature 97.4. He is 98% on room air. General description is a middle-aged male lying in bed in no distress. RESPIRATORY SYSTEM: Unlabored breathing, clear to auscultation anteriorly. HEART: S1, S2. Regular rate and rhythm. ABDOMEN: Soft, no tenderness. Right gluteal area slight induration. No fluctuation or drainage was noticed. LABS: White count 8.9. Culture positive for group C strep. DIAGNOSTIC IMPRESSION AND PLAN: Patient with right gluteal/perirectal abscess, status post drainage. Culture has been group C Streptococcus. Antibiotic was adjusted to Augmentin 875 b.i.d. for another 10 days with close outpatient followup. MMODL / IJN: [id number] /
--- NOTE | 2018-02-21 12:50 | P.DS ---
Providers Date of admission: 02/17/18 13:05 Expected date of discharge: 02/21/18 Attending physician: Mj Banks Consults: 02/17/18 16:43 Consult Physician Routine Consulting Provider: Derrick Liu Consult Reason/Comments: medical mgmt Do you want consulting provider notified?: Yes 02/18/18 10:29 Consult Physician Routine Consulting Provider: Jose Valencia Consult Reason/Comments: Laverne-rectal abscess Do you want consulting provider notified?: Yes Primary care physician: Stated None Hospital Course: 57-year-old male presented on the day of admission to the emergency room with chief complaint of right anal pain with swelling. Patient was found to have a right perirectal abscess. Patient stated that he had a prior perirectal abscess approximately 10 years prior. On February 18 patient underwent an incision and drainage of the right perianal abscess. The wound was packed with wet-to- dry saline patient tolerated the procedure was started on antibiotic recommendations by infectious disease were to start Augmentin twice a day for a 10 day course. Wound culture was positive for group C strep Patient was felt to be appropriate to be discharged. Impression discharge diagnosis Present on admission severe right anal pain suspect due to periRectal abscess Status post incision and drainage of the right perianal abscess done February 18 Wound culture from the perirectal abscess showed group C streptococcal The above impression and plan of care have been discussed and directed by signing physician. Katie Cuevas nurse practitioner acting as scribe for signing physician. Patient Condition at Discharge: Stable Plan - Discharge Summary Discharge Rx Participant: Yes New Discharge Prescriptions: New Amoxic-Pot Clav 875-125Mg [Augmentin 875-125] 1 tab PO Q12HR #20 tablet No Action Ibuprofen [Motrin Ib] 800 mg PO TID PRN PRN Reason: Pain Discharge Medication List Ibuprofen [Motrin Ib] 800 mg PO TID PRN 02/17/18 [History] Amoxic-Pot Clav 875-125Mg [Augmentin 875-125] 1 tab PO Q12HR #20 tablet [Rx] Follow up Appointment(s)/Referral(s): None,Stated [Primary Care Provider] - 1-2 days Jose Valencia MD [STAFF PHYSICIAN] - 1 Week Mj Banks MD [STAFF PHYSICIAN] - 1 Week Patient Instructions/Handouts: Abscess Incision and Drainage (DC) Activity/Diet/Wound Care/Special Instructions: NO smoking, cessation information provided. Discharge Disposition: HOME SELF-CARE
--- NOTE | 2018-02-21 14:25 | PN ---
PROGRESS NOTE DATE OF SERVICE: 02/21/2018 This 57-year-old gentleman admitted with acute right perirectal abscess and sepsis is improving significantly. No chest pain. No palpitations. No fever. PHYSICAL EXAM: Alert and oriented x3, pulse 61, blood pressure 120/75, respiration 18, temp 97.4, pulse ox 98% on room air. HEENT: Conjunctivae normal. Oral mucosa moist. Neck is no jugular venous distention. No carotid bruit, no lymph node enlargement. CARDIOVASCULAR SYSTEM: S1, S2, muffled. RESPIRATION: Breath sounds diminished at the bases, no rhonchi, no crackles. ABDOMEN: Soft, nontender. LEGS: No edema, on swelling. NERVOUS SYSTEM: No focal deficits. Cultures noted. ASSESSMENT: 1. Acute right perirectal abscess with sepsis. 2. Status post incision and drainage with severe pain with culture growing beta- hemolytic strep group C. 3. History of previous hemorrhoids. 4. Increased WBC. 5. History of nicotine dependence. 6. History of ETOH. RECOMMENDATION: Recommend to continue current management and symptomatic treatment. Otherwise, at this time, I would also recommend continue with the antibiotics. Closely follow and follow with Dr. Whipple in the outpatient setting. Further recommendations per Surgery. Closely monitor. MMODL / IJN: [id number] /
--- NOTE | 2018-03-04 10:12 | CDI ---
Last Revision, August 2017 Documentation Clarification Form Date: 03/04/18 From: Roxana Paul Phone: If you have a question regarding this query, please contact Justina Valdovinos at [phone] between 8am and 5pm Admit Date: 02/17/2018 1:05:00 PM Patient Name: Darrick Bolanos Visit Number: [id number] Discharge Date: 03/04/18 ATTENTION: The Clinical Documentation Specialists (CDI) and [facility] Coding Staff appreciate your assistance in clarifying documentation. Please respond to the clarification below the line at the bottom and electronically sign. The CDI & [facility] Coding staff will review the response and follow-up if needed. Please note: Queries are made part of the Legal Health Record. If you have any questions, please contact the author of this message via ITS. Dr. Mj Banks Sepsis is documented in Dr. Liu's consult note and progress notes but not in your discharge summary. History/Risk Factors: Perirectal abscess. Clinical Indicators: Fever and chills WBC/Left Shift 12.2/8.9 Lactic acid: .9 Blood cultures: No growth after 144 hours Vitals signs on admission: T. 97.5 on admission then up to 100.5 five hours later, P. 107, R. 20, BP 136/100 Treatment: Antibiotics: IV Levofloxacin, IV Metronidazole, IV Zosyn IV Bolus: IV Sodium Chloride 500 mls @ 999 mls/hr In your professional opinion, please clarify if these findings signify one of the following conditions, whether Sepsis ruled out SIRS, without underlying infectious process Sepsis Severe Sepsis Septic Shock Other, please specify Unable to determine Identify the (suspected) organism Sepsis ruled out MTDD
== END 2018-02-21 13:59 | disposition home or self-care (01) | DRG 581 ==
LOC: EC 09:44 → 4MS4W 13:05
PROVIDERS: ADMIT Surgery; ATTEND Surgery
PROC: 0H99XZZ Drainage of Perineum Skin, External Approach (ICD-10-PCS; principal; 2018-02-18)
DX: L02.215 Cutaneous abscess of perineum (principal); F17.210 Nicotine dependence, cigarettes, uncomplicated; Z82.49 Family history of ischemic heart disease and other diseases of the circulatory system; Z83.3 Family history of diabetes mellitus; Z82.3 Family history of stroke; Z80.9 Family history of malignant neoplasm, unspecified
CPT/HCPCS: 36415; 74177; 80053; 83605; 85025; 87040; 87070; 87075; 87205; 96365; 96375; 99285

== ENCOUNTER → 2018-08-25 | Outpatient (CLI) | payer OTHER ==
--- NOTE | 2018-08-25 14:32 | CT ---
EXAMINATION TYPE: CT chest wo con DATE OF EXAM: 08/25/2018 COMPARISON: None HISTORY: Cough CT DLP: [address] of the chest was performed with lung and mediastinal window settings submitted. The la ck of contrast limits evaluation of the vascular, mediastinal and parenchymal structures including th e upper abdomen. LUNGS: There is a left infrahilar mass measuring 5.1 x 3.9 cm which partially encases the left mainst em bronchus and obstructs the left lower lobe bronchus. Postobstructive pneumonitis left lower lobe. There is also additional left suprahilar mass which may reflect additional tumor versus conglomerate adenopathy measuring 6.5 x 5 cm. The lack of contrast limits evaluation. CT with contrast is advised. No additional nodules are seen. Calcified granuloma right lung base. MEDIASTINUM/JANNA: There is AP window adenopathy measuring 3 x 1.9 cm. There is high right paratrache al adenopathy measuring 2.9 x 3.0 cm. There is low right paratracheal adenopathy measuring 1.9 cm. 1 cm subcarinal adenopathy noted. UPPER ABDOMEN: No significant abnormality is seen. OTHER: No significant other abnormality. IMPRESSION: 1. Left hilar mass with conglomerate adenopathy as well as mediastinal adenopathy as discussed above felt to reflect malignancy until proven otherwise. The lack of contrast does limit evaluation. Consi kenya repeat CT of the chest with contrast. A Red level critical message alert has been initiated for Dionicio Altamirano MD via the [employer] Critical Results System on 08/25/2018 2:28 PM. This message alert has been sent to Dionicio Altamirano MD via the preferences provided by the clinician for the receipt of Radiology Critical Fin dings. Message ID [id number].
== END | disposition home or self-care (01) ==
LOC: RADCTMAIN 13:53
PROVIDERS: ATTEND Family Medicine
DX: R91.8 Other nonspecific abnormal finding of lung field (principal); R59.0 Localized enlarged lymph nodes
CPT/HCPCS: 71250

== ENCOUNTER 2018-09-27 10:57 | Day surgery (SDC) | payer OTHER ==
[~2018-09-27 10:57] MED LIST: ALBUTEROL NEB (CONC) 2.5 MG/0.5 ML INHALATION ONE; ATROPINE SULFATE 0.4 MG/ML 1 ML VIAL IM ONE; LACTATED RINGERS 1,000 ML IV ONE; LIDOCAINE HCL/PF 20 MG/ML ML INHALATION ONE; LIDOCAINE VISCOUS 2% 15 ML CUP MUCOUS MEM ONE; Pre Op ABX Message 1 EACH MISC MISCELLANE ONE
[2018-09-27] MEDS ORDERED: LACTATED RINGERS 1,000 ML IV SCH (11:18)
[2018-09-27] MEDS ORDERED: LIDOCAINE 1% 20 ML VIAL (10MG/ML) FOR IV START INTRADERMA PRN (11:18)
[2018-09-27 11:28] VITALS: TEMP 99
[2018-09-27] MEDS ORDERED: LIDOCAINE 1% INJ 10MG/ML (20 ML MDV) ONE (12:09)
[2018-09-27] MEDS ORDERED: MIDAZOLAM 2 MG/2 ML VIAL ONE (12:09)
[2018-09-27] MEDS ORDERED: PROPOFOL 10 MG/ML 20 ML VIAL IV ONE (12:09)
[2018-09-27 13:19] VITALS: RESP 20
[2018-09-27] MEDS ORDERED: ACETAMINOPHEN TAB 325 MG TAB PO ONE (13:26)
--- NOTE | 2018-09-27 13:39 | PCN ---
PROCEDURE NOTE The operative report is bronchoscopy, left upper lobe endobronchial biopsy, left upper lobe brushings and washings, left mainstem brushings and biopsy of left mainstem endobronchial tumor, Larry needle aspiration, and Larry needle trans-carinal core biopsy. PREOPERATIVE DIAGNOSIS: Left hilar mass with mediastinal adenopathy. POSTOPERATIVE DIAGNOSIS: Left hilar mass with mediastinal adenopathy. ANESTHESIA USED: IV conscious sedation. PROCEDURE: Patient was prepared according to the bronchoscopy protocol. The O2 was applied via nasal cannula. We monitored his O2 saturation continuously, blood pressure was intermittently monitored, and cardiac rhythm was continuously monitored. After IV conscious sedation, mL of lidocaine were instilled into the left naris, the bronchoscope was advanced through the left naris down to the area of the vocal cords. The left vocal cord was noted to be a bit sluggish, but moving not as well as the right vocal cord. Then, lidocaine was applied over the vocal cords, and bronchoscope was advanced further down as oral examination was done of the trachea, mary, right upper lobe, right middle lobe, left upper lobe, lingula, and left lower lobe. The findings were positive for abnormality noted in the left mainstem bronchus. There was an endobronchial tumor at the posterior wall of the left mainstem bronchus, it was extremely friable and bled easily. There was also some significant mucosal changes in the left upper lobe bronchus, then multiple biopsies of the left upper lobe bronchus were done. Brushings of the left upper lobe bronchus were done, washings of the left upper lobe were done. Then, we moved down to the left mainstem bronchus, brushings and biopsies were done of the lesion that is noted on the posterior wall of the left mainstem bronchus. Again, it was bleeding easily, extremely friable. Then, we moved on to that mary, and trans-carinal needle aspiration was done on the right side at the level of the mary, and a core biopsy using the Larry needle of the right trans- carinal nodes noted. The procedure was well tolerated, no evidence of any immediate complications, minimal blood loss noted throughout the whole procedure. The specimen was sent for different diagnostic studies. Again, no complications. MMODL / IJN: [id number] /
[2018-09-27 13:40] VITALS: BP 124/84
[2018-09-27 13:50] VITALS: PULSE 98
== END 2018-09-27 14:06 | disposition home or self-care (01) ==
LOC: ORWHC2ENDO 10:57
PROVIDERS: ATTEND Internal Medicine
DX: C34.12 Malignant neoplasm of upper lobe, left bronchus or lung (principal); R59.0 Localized enlarged lymph nodes; J44.1 Chronic obstructive pulmonary disease with (acute) exacerbation; R63.4 Abnormal weight loss; Z79.51 Long term (current) use of inhaled steroids; Z79.899 Other long term (current) drug therapy; F17.210 Nicotine dependence, cigarettes, uncomplicated; Z79.52 Long term (current) use of systemic steroids
CPT/HCPCS: 94640; 88104; 88108; 88305; 88173; 88342; 88341; 87070; 87205; 31629; 31625; 31623; J2250; J2001 ×2; J2704; 31624

== ENCOUNTER → 2018-09-30 | Outpatient (CLI) | payer OTHER ==
--- NOTE | 2018-10-02 06:52 | PE ---
EXAMINATION TYPE: PET CT fusion skull to thigh DATE OF EXAM: 09/30/2018 COMPARISON: Chest CT August 25, 2018. CT abdomen pelvis February 17, 2018. HISTORY: Lung cancer with history of biopsy September 28, 2018. TECHNIQUE: Following the intravenous administration of 11.785 mCi of F-18 FDG, whole body images are performed from the skull base to the midthigh. Images are reviewed on the computer in the coronal, axial, and sagittal planes. Reconstructed rotating images are created on independent workstation and reviewed on the computer. A noncontrast CT is performed in conjunction with the PET scan. SCAN: Initial Scan FINDINGS: SKULL BASE AND NECK: There is hypermetabolic right-sided supraclavicular lymph node measuring roughl y 2.0 x 0.8 cm axial image 55, max SUV is 4.01. There is a second hypermetabolic subcentimeter right supraclavicular lymph node axial image 58, max SUV is 3.76. CHEST, MEDIASTINUM, AND HILAR REGION: There is background moderate emphysematous change redemonstrate d. There is persistent large irregular left hilar mass appears to be invading mediastinum measuring r oughly 4.4 x 5.4 cm axial image 89, max SUV is 9.3. There is endobronchial narrowing and occlusion of lingular and lower lobe bronchi. Craniocaudal length of mass is roughly 10 cm. There is abnormal mediastinal adenopathy, for reference right paratracheal lymph node measures roughl y 3.2 x 3.1 cm axial image 77 with max SUV of 8.13. ABDOMEN AND PELVIS: No suspicious hypermetabolic uptake is seen. No adrenal masses are noted. OSSEOUS STRUCTURES: There is abnormal hypermetabolic uptake in the anterior left lower rib axial imag e 134, some callus formation as well present suggests subacute fracture. There is subtle hypermetabol ic uptake right lateral lower rib axial image 122 without definitive lytic or sclerotic lesion or shruti glenn formation, correlate for additional focus of trauma. OTHER CT: Bilateral gynecomastia is present. There is mild to moderate coronary artery calcification which is noted marker for coronary artery dis ease. Bladder is poorly distended with moderate concentric wall thickening. Prostate gland is enlarged in s ize. Correlate for bladder outlet obstruction related to BPH. There is a calcified granuloma or nodule right lung base axial image 131 incidentally noted. IMPRESSION: Large invasive left hilar neoplasm with mediastinal and supraclavicular adenopathy. No me tastatic disease is otherwise evident. TNM STAGING T4,N3,M0 AJCC STAGING IIIC
== END | disposition home or self-care (01) ==
LOC: RADPETMAIN 10:19
PROVIDERS: ATTEND Internal Medicine
DX: C34.12 Malignant neoplasm of upper lobe, left bronchus or lung (principal); R59.0 Localized enlarged lymph nodes
CPT/HCPCS: 78815; A9552

== ENCOUNTER → 2018-10-06 | Outpatient (CLI) | payer OTHER ==
--- NOTE | 2018-10-06 11:49 | MR ---
EXAMINATION TYPE: MR brain wo/w con DATE OF EXAM: 10/06/2018 COMPARISON: None HISTORY: Lung Ca, Headaches TECHNIQUE: Multiplanar, multisequence images of the brain and brainstem is performed without and with IV contras t, utilizing 7 mL intravenous Gadavist . FINDINGS: Diffusion weighted images demonstrate no evidence of a recent infarct. There is a focus of ring enhancement seen at the level of the convexity which is thought likely to be at the external bra in surface, local mass effect on the underlying cortex, lesion measures 13 x 12 x 11 mm and shows cor responding abnormal signal on T2 and inversion recovery sequences, isointense on T1-weighted sequence s. May be some underlying local gliosis at this level, there is restricted diffusion. Some scattered hyperintensities are present on inversion recovery T2-weighted sequences within the periventricular, juxtacortical white matter. Approximately 40 lesions are present. Lesions measure only approximately 5 mm in greatest dimension and show no abnormal enhancement. There is no evident hemorrhage. The vent ricular system and cisternal spaces are normal in size and appearance. The brain volume is age appro priate. Midline structures demonstrate normal morphology. The craniocervical junction appears within normal limits. The dural venous sinuses appear patent. The visualized sinuses are clear and the globes are intact. IMPRESSION: Ring-enhancing lesion at the convexity in the extra medullary location is felt likely to represent metastasis at the level of the brain surface as described. There are findings of probable c hronic small vessel ischemia, age related atrophy.
== END | disposition home or self-care (01) ==
LOC: RADMRIMAIN 09:32
PROVIDERS: ATTEND Internal Medicine Hematology & Oncology
DX: C34.92 Malignant neoplasm of unspecified part of left bronchus or lung (principal)
CPT/HCPCS: 70553; A9585

== ENCOUNTER 2018-10-21 17:00 | Inpatient (IN) | payer OTHER ==
--- NOTE | 2018-10-22 00:54 | XR ---
EXAMINATION TYPE: Chest 2 views DATE OF EXAM: 10/21/2018 COMPARISON: PET CT 09/30/2018 HISTORY: 58-year-old male cough and fever FINDINGS: Heart normal size. Aorta and pulmonary vasculature within normal limits. Hyperinflation. There is pos terior left basilar opacity. We note patient's PET/CT which reports a large left hilar neoplasm with metastatic lymph nodes. No sizable effusion seen. IMPRESSION: Known left hilar neoplasm. However, there is new posterior left basilar opacity. Given patient's symp toms, pneumonia is suggested.
[2018-10-22] MEDS: ALBUTEROL NEBULIZED 2.5 MG/3 ML INHALATION PRN ×4 (01:34→23:09)
[2018-10-22] MEDS: VANCOMYCIN 1,250 MG in SODIUM CHLORIDE 0.9% 250 ML IVPB SCH ×2 (02:25→13:48)
[2018-10-22] MEDS: PIPERACILLIN-TAZOBACTAM 3.375 GM in SODIUM CHLORIDE 0.9% 100 ML IVPB SCH ×3 (02:25→18:22)
[2018-10-22 03:05] VITALS: BMI 19.8
[2018-10-22 04:48] LABS: INR 0.9 (<1.2); Partial Thromboplastin Time 28.9 sec (22.0-30.0); Prothrombin Time 9.7 sec (9.0-12.0)
[2018-10-22] MEDS: SYMBICORT 160-4.5 MCG INHALER INHALATION SCH ×2 (07:20→19:26)
[2018-10-22 07:27] LABS: HCT 35.8 % (39.0-53.0); MCH 32.4 pg (25.0-35.0); MCHC 33.6 g/dL (31.0-37.0); MCV 96.6 fL (80.0-100.0); Mean Platelet Volume 6.4; Platelet Count 139 k/uL (150-450); RDW 13.5 % (11.5-15.5)
[2018-10-22 07:29] LABS: WBC 0.9 k/uL (3.8-10.6)
[2018-10-22] MEDS: ACETAMINOPHEN TAB 325 MG TAB PO PRN ×3 (09:46→22:23)
[2018-10-22 11:54] LABS: ALT 38 U/L (21-72); AST 36 U/L (17-59); Albumin 2.8 g/dL (3.5-5.0); Alkaline Phosphatase 102 U/L (38-126); Anion Gap 8 mmol/L; Blood Urea Nitrogen 16 mg/dL (9-20); Calcium 8.5 mg/dL (8.4-10.2); Carbon Dioxide 26 mmol/L (22-30); Chloride 95 mmol/L (98-107); Glucose 113 mg/dL (74-99); Magnesium 1.5 mg/dL (1.6-2.3); Phosphorus 2.1 mg/dL (2.5-4.5); Potassium 4.2 mmol/L (3.5-5.1); Sodium 129 mmol/L (137-145); Total Protein 5.7 g/dL (6.3-8.2)
[2018-10-22 13:34] LABS: Creatine Kinase 100 U/L (55-170); Creatine Kinase MB <0.2 ng/mL (0.0-2.4); Troponin I <0.012 ng/mL (0.000-0.034)
[2018-10-22] MEDS: SODIUM CHLORIDE 0.9% 1,000 ML IV SCH (15:44)
[2018-10-22] MEDS ORDERED: predniSONE 10 MG TAB PO SCH (16:00)
--- NOTE | 2018-10-22 17:51 | P.HPIM ---
History of Present Illness 80-year-old male came in with fever patient is neutropenic receiving chemotherapy for his lung cancer patient is comparing of cough. Chest x-ray images are not available clinically patient doesn't have any bronchophony egophony or crackles at the there is a mass in the left hilar area which can be neoplasm although there is a possible left basilar lipase at the can be pneumonia. Patient was started on broad-spectrum antibodies Zosyn and vancomycin treating for febrile neutropenia. Patient was also diagnosed with recent metastatic disease to brain for which patient is on prednisone which will be continued. Oncology will be consulted. 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 HEENT: No recent visual problems or hearing problems. Denied any sore throat. CARDIOVASCULAR: No chest pain, orthopnea, PND, no palpitations, no syncope. PULMONARY: no hemoptysis. GASTROINTESTINAL: No diarrhea, no nausea, no vomiting, no abdominal pain. NEUROLOGICAL: No headaches, no weakness, no numbness. HEMATOLOGICAL: Denies any bleeding or petechiae. GENITOURINARY: Denies any burning micturition, frequency, or urgency. MUSCULOSKELETAL/RHEUMATOLOGICAL: Denies any joint pain, swelling, or any muscle pain. ENDOCRINE: Denies any polyuria or polydipsia. The rest of the 14-point review of systems is negative. Past Medical History Past Medical History: No Reported History, Cancer Additional Past Medical History / Comment(s): pilonidal cyst, I&D of cyst on buttocks in January 2018, required IV antibiotics and hospitalization. Recent diagnosis of lung cancer, with mets to lymph node in neck and brain. currently receiving chemotherapy infusions. History of Any Multi-Drug Resistant Organisms: None Reported Additional Past Surgical History / Comment(s): hemmorhoid surgery, fistula repair,facial reconstructions approx 25yrs Past Anesthesia/Blood Transfusion Reactions: No Reported Reaction Past Psychological History: No Psychological Hx Reported Smoking Status: Former smoker Past Alcohol Use History: Daily Additional Past Alcohol Use History / Comment(s): drinks 4-5 beers per day Past Drug Use History: None Reported - Past Family History Father Family Medical History: CVA/TIA, Diabetes Mellitus Mother Family Medical History: Cancer Brother(s) Family Medical History: Myocardial Infarction ([place]) Medications and Allergies Home Medications Medication Instructions Recorded Confirmed Type Albuterol Inhaler [Ventolin Hfa 1 - 2 puff INHALATION RT-Q6H PRN 09/27/18 History Inhaler] Dexamethasone [Hexadrol] 8 mg PO DIRECTED 10/22/18 10/22/18 History Ergocalciferol (Vitamin D2) 50,000 unit PO Q7D 10/22/18 10/22/18 History [Vitamin D2] Fluticasone/Salmeterol [Airduo 1 puff INHALATION RT-BID 10/22/18 10/22/18 History Respiclick 232-14 Mcg] Omeprazole 20 mg PO AC-BID 10/22/18 10/22/18 History Prochlorperazine [Compazine] 10 mg PO Q8H PRN 10/22/18 10/22/18 History Allergies Allergy/AdvReac Type Severity Reaction Status Date / Time No Known Allergies Allergy Verified 10/22/18 16:16 Physical Exam Vitals: Vital Signs Temp Pulse Pulse Resp BP Pulse Ox 10/22/18 15:00 98.8 F 86 111/69 98 10/22/18 14:18 84 10/22/18 14:06 80 10/22/18 09:53 12 10/22/18 07:23 98.4 F 95 12 106/71 96 10/22/18 06:06 98.9 F 10/22/18 05:13 100 10/22/18 05:07 100 10/22/18 01:37 104 H 10/22/18 01:35 100.0 F H 10/22/18 01:32 100 10/22/18 01:09 101.6 F H 109 H 16 112/76 96 10/21/18 21:59 99.2 F 101 H 15 106/70 97 Intake and Output 10/22/18 10/22/18 10/22/18 06:59 14:59 22:59 Intake Total 800 Balance 800 Intake: Oral 800 Other: # Voids 1 2 Weight 65.5 kg PHYSICAL EXAMINATION: GENERAL: The patient is alert and oriented x3, not in any acute distress. Well developed, well nourished. HEENT: Pupils are round and equally reacting to light. EOMI. No scleral icterus. No conjunctival pallor. Normocephalic, atraumatic. No pharyngeal erythema. No thyromegaly. CARDIOVASCULAR: S1 and S2 present. No murmurs, rubs, or gallops. PULMONARY: Chest is clear to auscultation, no wheezing or crackles. ABDOMEN: Soft, nontender, nondistended, normoactive bowel sounds. No palpable organomegaly. MUSCULOSKELETAL: No joint swelling or deformity. EXTREMITIES: No cyanosis, clubbing, or pedal edema. NEUROLOGICAL: Gross neurological examination did not reveal any focal deficits. SKIN: No rashes. Results CBC & Chem 7: 10/21/18 17:55 10/21/18 17:55 Labs: Abnormal Lab Results - Last 24 Hours (Table) 10/21/18 10/21/18 10/21/18 Range/Units 17:55 17:55 17:55 WBC 0.9 L* (3.8-10.6) k/uL RBC 3.70 L (4.30-5.90) m/uL Hgb 12.0 L (13.0-17.5) gm/dL Hct 35.8 L (39.0-53.0) % Plt Count 139 L (150-450) k/uL Sodium 129 L (137-145) mmol/L Chloride 95 L (98-107) mmol/L Glucose 113 H (74-99) mg/dL Osmolality 267 L (280-301) mosm/kg Phosphorus 2.1 L (2.5-4.5) mg/dL Magnesium 1.5 L (1.6-2.3) mg/dL Total Protein 5.7 L (6.3-8.2) g/dL Albumin 2.8 L (3.5-5.0) g/dL Thrombosis Risk Factor Assmnt - Choose All That Apply Each Factor Represents 1 point: Age 41-60 years Thrombosis Risk Factor Assessment Total Risk Factor Score: 1 Thrombosis Risk Factor Assessment Level: Low Risk Assessment and Plan Plan: -Febrile neutropenia, sepsis: Possible source can be left basilar pneumonia patient will be treated with broad-spectrum antibiotics because of a prior neutropenia. As this was not obtained may not be beneficial now since he is already receiving antibiotics continue with vancomycin and Zosyn. We will also obtain sputum cultures -Hyponatremia either SIADH or hypervolemic hyponatremia further workup as mentioned above -COPD without any acute exacerbation continue with inhalational steroids -Lung cancer metastases to the brain continue with prednisone. Neutropenia: Secondary to chemotherapy Patient will a pharmacologic DVT prophylaxis as well as GI prophylaxis
[2018-10-22 17:55] LABS: Creatinine,Urine Random 65.7 mg/dL
[2018-10-22] MEDS: FAMOTIDINE 20 MG TAB PO SCH (22:23)
[2018-10-23] MEDS: HEPARIN SODIUM,PORCINE 5,000 UNIT/ML 1 ML VIAL SQ SCH ×3 (01:09→18:02)
[2018-10-23] MEDS: VANCOMYCIN 1,250 MG in SODIUM CHLORIDE 0.9% 250 ML IVPB SCH ×3 (01:09→18:03)
[2018-10-23] MEDS: PIPERACILLIN-TAZOBACTAM 3.375 GM in SODIUM CHLORIDE 0.9% 100 ML IVPB SCH ×3 (01:09→18:21)
[2018-10-23] MEDS: SODIUM CHLORIDE 0.9% 1,000 ML IV SCH ×2 (01:09→12:20)
[2018-10-23] MEDS: ALBUTEROL NEBULIZED 2.5 MG/3 ML INHALATION PRN ×5 (02:56→20:58)
[2018-10-23 07:48] LABS: Anion Gap 5 mmol/L; Blood Urea Nitrogen 9 mg/dL (9-20); Calcium 7.8 mg/dL (8.4-10.2); Carbon Dioxide 29 mmol/L (22-30); Chloride 100 mmol/L (98-107); Glucose 89 mg/dL (74-99); Potassium 3.4 mmol/L (3.5-5.1); Sodium 134 mmol/L (137-145)
[2018-10-23] MEDS: FAMOTIDINE 20 MG TAB PO SCH ×2 (08:19→21:19)
[2018-10-23] MEDS: ACETAMINOPHEN TAB 325 MG TAB PO PRN ×3 (08:19→22:29)
[2018-10-23 09:02] LABS: Basophils % (A) 0 %; Eosinophils % (A) 2 %; HCT 32.9 % (39.0-53.0); HGB 10.6 gm/dL (13.0-17.5); Lymphocytes # (A) 0.6 k/uL (1.0-4.8); Lymphocytes % (A) 41 %; MCH 31.6 pg (25.0-35.0); MCHC 32.2 g/dL (31.0-37.0); MCV 98.2 fL (80.0-100.0); Mean Platelet Volume 6.9; Monocytes # (A) 0.1 k/uL (0-1.0); Monocytes % (A) 8 %; Neutrophils # (A) 0.6 k/uL (1.3-7.7); Neutrophils % (A) 45 %; Platelet Count 215 k/uL (150-450); RBC 3.35 m/uL (4.30-5.90); RDW 13.5 % (11.5-15.5)
[2018-10-23 09:07] LABS: WBC 1.4 k/uL (3.8-10.6)
[2018-10-23] MEDS: SYMBICORT 160-4.5 MCG INHALER INHALATION SCH ×2 (09:23→21:00)
--- NOTE | 2018-10-23 15:23 | P.CONS ---
History of Present Illness - Reason for Consult Consult date: 10/23/18 SCLC, s/p 1st chemo, febrile neutropenia Requesting physician: Sameer Sterling - Chief Complaint fever - History of Present Illness Mr. Bolanos is a very pleasant male pt of Dr. Aguilar who presented initially to a hospital in [place] with persistent cough, associated with a 25lb unintentional wt. loss in 6 months. He had a CXR that revealed LLL abnormality, when he came home he was evaluated by PCP Dr. Altamirano, CT chest revealed L hilar mass with conglomerate mediastinal lymphadenopathy, staging PET 09/30/18 revealed FDG-Avid L hilar mass and mediastinal lymphadenopathy, as well as RSC lymph node, no distant metastatic disease seen. Dr. Pop performed bronchoscopy on 09/28/18, this revealed endobronchial disease at left mainstem, bx positive for small cell carcinoma. MRI brain showed multiple lesions. 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 Did see pt last week and he tolerated treatment rather well with c/o of 1 days feeling "bad", his CBC was decent last week. Pt unfortunately progressively felt worse over the last 4-5 days, poor appetite, increased fatigue, he developed a fever and came to ER, 101.6 F on admit, pancultures collected, empiric abx given. PT states he feels rather good today, some appetite, no fever overnight, denies cough, RENNY, hemoptysis, abd pain, nausea, diarrhea, pain or swelling. Review of Systems 14 point ROS is negative except as stated in HPI Past Medical History Past Medical History: No Reported History, Cancer Additional Past Medical History / Comment(s): pilonidal cyst, I&D of cyst on buttocks in January 2018, required IV antibiotics and hospitalization. Recent diagnosis of lung cancer, with mets to lymph node in neck and brain. currently receiving chemotherapy infusions. History of Any Multi-Drug Resistant Organisms: None Reported Additional Past Surgical History / Comment(s): hemmorhoid surgery, fistula repair,facial reconstructions approx 25yrs Past Anesthesia/Blood Transfusion Reactions: No Reported Reaction Past Psychological History: No Psychological Hx Reported Smoking Status: Former smoker Past Alcohol Use History: Daily Additional Past Alcohol Use History / Comment(s): drinks 4-5 beers per day Past Drug Use History: None Reported - Past Family History Father Family Medical History: CVA/TIA, Diabetes Mellitus Mother Family Medical History: Cancer Brother(s) Family Medical History: Myocardial Infarction ([place]) Medications and Allergies Home Medications Medication Instructions Recorded Confirmed Type Albuterol Inhaler [Ventolin Hfa 1 - 2 puff INHALATION RT-Q6H PRN 09/27/18 History Inhaler] Dexamethasone [Hexadrol] 8 mg PO DIRECTED 10/22/18 10/22/18 History Ergocalciferol (Vitamin D2) 50,000 unit PO Q7D 10/22/18 10/22/18 History [Vitamin D2] Fluticasone/Salmeterol [Airduo 1 puff INHALATION RT-BID 10/22/18 10/22/18 History Respiclick 232-14 Mcg] Omeprazole 20 mg PO AC-BID 10/22/18 10/22/18 History Prochlorperazine [Compazine] 10 mg PO Q8H PRN 10/22/18 10/22/18 History Allergies Allergy/AdvReac Type Severity Reaction Status Date / Time No Known Allergies Allergy Verified 10/22/18 16:16 Physical Exam Vitals: Vital Signs Temp Pulse Pulse Resp BP Pulse Ox 10/23/18 14:15 99.1 F 100 122/75 96 10/23/18 13:15 92 10/23/18 13:03 88 10/23/18 09:40 92 10/23/18 09:24 96 10/23/18 08:29 16 10/23/18 07:00 97.5 F L 88 16 116/86 97 10/23/18 03:04 87 10/23/18 02:56 88 10/23/18 00:26 98.9 F 91 15 112/70 96 10/23/18 00:20 15 10/22/18 23:11 86 10/22/18 20:24 98.6 F 89 16 114/71 97 Intake and Output 10/23/18 10/23/18 10/23/18 06:59 14:59 22:59 Intake Total 1450 Balance 1450 Intake: Intake, IV Titration 1050 Amount Sodium Chloride 0.9% 1, 800 000 ml @ 100 mls/hr IV . Q10H [facility] Rx#:[id number] Vancomycin 1,250 mg In 125 Sodium Chloride 0.9% 250 ml @ 125 mls/hr IVPB Q12H [facility] Rx#:[id number] Vancomycin 1,250 mg In 125 Sodium Chloride 0.9% 250 ml @ 125 mls/hr IVPB Q8H [facility] Rx#:[id number] Oral 400 - Constitutional General appearance: average body habitus, cooperative, no acute distress - EENT Eyes: anicteric sclerae, EOMI ENT: hearing grossly normal - Neck Neck: no lymphadenopathy - Respiratory Respiratory: bilateral: diminished - Cardiovascular Rhythm: regular Heart sounds: normal: S1, S2 Abnormal Heart Sounds: no systolic murmur, no diastolic murmur, no rub, no S3 Gallop, no S4 Gallop, no click, no other leg Peripheral Edema: bilateral: None - Gastrointestinal General gastrointestinal: no absent bowel sounds, no decreased bowel sounds, no distended, no hepatomegaly, no hyperactive bowel sounds, normal bowel sounds, no organomegaly, no rigid, no scaphoid, soft, no splenomegaly, no tenderness, no umbilical hernia, no ventral hernia - Integumentary Integumentary: pale - Neurologic Neurologic: CNII-XII intact - Musculoskeletal Musculoskeletal: strength equal bilaterally - Psychiatric Psychiatric: A&O x's 3, appropriate affect, intact judgment & insight Results CBC & Chem 7: 10/23/18 06:22 10/23/18 06:22 Labs: Abnormal Lab Results - Last 24 Hours (Table) 10/21/18 10/23/18 10/23/18 Range/Units 17:55 06:22 06:22 WBC 1.4 L* (3.8-10.6) k/uL RBC 3.35 L (4.30-5.90) m/uL Hgb 10.6 L (13.0-17.5) gm/dL Hct 32.9 L (39.0-53.0) % Neutrophils # 0.6 L (1.3-7.7) k/uL Lymphocytes # 0.6 L (1.0-4.8) k/uL Sodium 134 L (137-145) mmol/L Potassium 3.4 L (3.5-5.1) mmol/L Creatinine 0.55 L (0.66-1.25) mg/dL Osmolality 267 L (280-301) mosm/kg Calcium 7.8 L (8.4-10.2) mg/dL Microbiology - Last 24 Hours (Table) 10/21/18 17:55 Blood Culture - Preliminary Blood No Growth after 24 hours Chest x-ray: report reviewed Assessment and Plan (1) Febrile neutropenia Narrative/Plan: GCSF ordered for ANC 600 with fever. Labs daily. Pending panculture results. Agree with cont empiric abx Current Visit: Yes Status: Acute Priority: High Code(s): D70.9 - NEUTROPENIA, UNSPECIFIED; R50.81 - FEVER PRESENTING WITH CONDITIONS CLASSIFIED ELSEWHERE SNOMED Code(s): 168581022 (2) Small cell lung cancer Narrative/Plan: S/P 1st cycle of chemo with plans for radiation. I am not clear as to the plans for the brain so, I will discuss with Rad/Onc and update med record. For now, pt will cont empiric abx, pending pancultures. Cont supportive care. No treatment until his current condition is resolved. Changes to treatment plan to be determined by Attending Oncologist. Current Visit: Yes Status: Acute Priority: High Code(s): C34.90 - MALIGNANT NEOPLASM OF UNSP PART OF UNSP BRONCHUS OR LUNG SNOMED Code(s): 134651669 (3) Antineoplastic chemotherapy induced anemia Narrative/Plan: Mild anemia, due to chemo, no acute intervention necessary. Will work pt up outpatient if anemia persists or progresses after recovery from chemo Current Visit: Yes Status: Acute Priority: Medium Code(s): D64.81 - ANEMIA DUE TO ANTINEOPLASTIC CHEMOTHERAPY; T45.1X5A - ADVERSE EFFECT OF ANTINEOPLASTIC AND IMMUNOSUP DRUGS, INIT SNOMED Code(s): 076608629
[2018-10-23] MEDS: FILGRASTIM-SNDZ 480 MCG/0.8 ML SYRINGE SQ SCH (18:02)
[2018-10-24] MEDS: ALBUTEROL NEBULIZED 2.5 MG/3 ML INHALATION PRN ×6 (00:03→23:22)
[2018-10-24] MEDS: HEPARIN SODIUM,PORCINE 5,000 UNIT/ML 1 ML VIAL SQ SCH ×4 (00:25→23:43)
[2018-10-24] MEDS: VANCOMYCIN 1,250 MG in SODIUM CHLORIDE 0.9% 250 ML IVPB SCH (02:24)
[2018-10-24] MEDS: PIPERACILLIN-TAZOBACTAM 3.375 GM in SODIUM CHLORIDE 0.9% 100 ML IVPB SCH ×3 (02:24→18:30)
[2018-10-24] MEDS: SODIUM CHLORIDE 0.9% 1,000 ML IV SCH ×2 (03:52→11:02)
[2018-10-24] MEDS: ACETAMINOPHEN TAB 325 MG TAB PO PRN ×4 (04:43→21:37)
[2018-10-24] MEDS: SYMBICORT 160-4.5 MCG INHALER INHALATION SCH ×2 (08:53→18:42)
[2018-10-24] MEDS: FAMOTIDINE 20 MG TAB PO SCH ×2 (08:53→19:46)
[2018-10-24] MEDS ORDERED: VANCOMYCIN TROUGH DUE 1 EACH MISC MISCELLANE ONE (09:00)
[2018-10-24 09:18] LABS: Basophils % (A) 0 %; Eosinophils % (A) 1 %; HCT 34.1 % (39.0-53.0); HGB 11.4 gm/dL (13.0-17.5); Lymphocytes # (A) 1.3 k/uL (1.0-4.8); Lymphocytes % (A) 21 %; MCH 32.6 pg (25.0-35.0); MCHC 33.3 g/dL (31.0-37.0); MCV 97.9 fL (80.0-100.0); Mean Platelet Volume 7.2; Monocytes # (A) 0.3 k/uL (0-1.0); Monocytes % (A) 4 %; Neutrophils # (A) 4.4 k/uL (1.3-7.7); Neutrophils % (A) 71 %; Platelet Count 390 k/uL (150-450); RBC 3.49 m/uL (4.30-5.90); RDW 13.6 % (11.5-15.5); WBC 6.2 k/uL (3.8-10.6)
[2018-10-24] MEDS: FILGRASTIM-SNDZ 480 MCG/0.8 ML SYRINGE SQ SCH (09:24)
[2018-10-24] MEDS: VANCOMYCIN 1,500 MG in SODIUM CHLORIDE 0.9% 250 ML IVPB SCH ×2 (10:52→18:33)
--- NOTE | 2018-10-24 13:27 | PN ---
PROGRESS NOTE \CHIEF COMPLAINT: FUO and neutropenia. HISTORY OF PRESENT ILLNESS: This gentleman is doing fairly well. His white count also remains very low. He has not had any particular difficulty; however, with fever, chills, cough, shortness of breath, chest pain, etc. PHYSICAL EXAM: Breath sounds are fairly good bilaterally. The cardiac exam is normal and the abdomen is soft and nontender. IMPRESSION: 1. Neutropenia, secondary to chemotherapy. 2. Small cell carcinoma of the lung with metastases. 3. Chronic obstructive pulmonary disease. PLAN: Continue to follow with Hematology/Oncology until his white count increases. MMODL / IJN: [id number] /
--- NOTE | 2018-10-24 13:30 | PN ---
PROGRESS NOTE CHIEF COMPLAINT: Neutropenia. HISTORY OF PRESENT ILLNESS: This gentleman is doing fairly well and he feels good. His white count is back up today to 6000. PHYSICAL EXAM: Breath sounds are fairly clear and the cardiac exam is normal. The abdomen is soft, nontender. IMPRESSION: 1. Neutropenia. 2. Metastatic small cell carcinoma of the lung. PLAN: Continue to follow and he can be released whenever he is cleared by Oncology/Hematology. MMODL / IJN: [id number] /
--- NOTE | 2018-10-24 20:02 | P.PN ---
Subjective Progress Note Date: 10/24/18 Principal diagnosis: febrile neutropenia, metastatic small cell lung cancer on treatment Patient seen today in follow-up. He is feeling much better. Patient does have ongoing complaints of bilateral tinnitus (? Cisplatin), but he does state it is improved. He denies fever overnight, appetite is fair to good, no nausea or vomiting, cough, chest pain, palpitations, abdominal pain, diarrhea, constipation, bleeding or pain. Patient is fully ambulatory independently Objective - Vital Signs Vital signs: Vital Signs Temp 98.2 F 10/24/18 11:59 Pulse 81 10/24/18 18:54 Resp 20 10/24/18 11:59 BP 111/66 10/24/18 11:59 Pulse Ox 97 10/24/18 11:59 Intake & Output 10/24/18 10/24/18 10/25/18 06:59 18:59 06:59 Intake Total 1180 350 Balance 1180 350 Intake: Intake, IV Titration 350 Amount Piperacillin-Tazobactam 3 100 .375 gm In Sodium Chloride 0.9% 100 ml @ 25 mls/hr IVPB Q8H [facility] Rx#: [id number] Vancomycin 1,500 mg In 250 Sodium Chloride 0.9% 250 ml @ 125 mls/hr IVPB Q8H [facility] Rx#:[id number] Oral 1180 Other: # Voids 2 - Constitutional General appearance: Present: cooperative, no acute distress, thin - EENT Eyes: Present: anicteric sclerae, EOMI ENT: Present: normal oropharynx - Respiratory Respiratory: bilateral: CTA - Cardiovascular Heart sounds: normal: S1, S2 Abnormal Heart Sounds: Absent: systolic murmur, diastolic murmur, rub, S3 Gallop , S4 Gallop, click, other - Peripheral edema leg Peripheral Edema: bilateral: None - Gastrointestinal General gastrointestinal: Present: normal bowel sounds, soft - Integumentary Integumentary: Present: pale - Neurologic Neurologic: Present: CNII-XII intact - Musculoskeletal Musculoskeletal: Present: strength equal bilaterally - Psychiatric Psychiatric: Present: A&O x's 3, appropriate affect, intact judgment & insight - Labs CBC & Chem 7: 10/24/18 07:43 10/23/18 06:22 Labs: Abnormal Lab Results - Last 24 Hours (Table) 10/24/18 Range/Units 07:43 RBC 3.49 L (4.30-5.90) m/uL Hgb 11.4 L (13.0-17.5) gm/dL Hct 34.1 L (39.0-53.0) % Microbiology - Last 24 Hours (Table) 10/21/18 17:55 Blood Culture - Preliminary Blood No Growth after 48 hours Assessment and Plan (1) Febrile neutropenia Narrative/Plan: WBC is 6.2, ANC is 4.4. We will give one final dose of G-CSF and a.m. No fevers greater than 48 hours, blood culture negative at 48 hours, negative for flu. Current Visit: Yes Status: Acute Priority: High Code(s): D70.9 - NEUTROPENIA, UNSPECIFIED; R50.81 - FEVER PRESENTING WITH CONDITIONS CLASSIFIED ELSEWHERE SNOMED Code(s): 262595740 (2) Small cell lung cancer Narrative/Plan: Case discussed with Dr. Pennington. Plan was initially for concurrent chemoradiation starting with cycle 2 as it was thought the patient had limited stage disease. Unfortunately patient was found to have lesions in the brain. Plan is now for 4 -6 cycles of chemotherapy followed by radiation treatment. This was reviewed with the patient and he did verbalize understanding the plan. Current Visit: Yes Status: Acute Priority: High Code(s): C34.90 - MALIGNANT NEOPLASM OF UNSP PART OF UNSP BRONCHUS OR LUNG SNOMED Code(s): 028318037 (3) Antineoplastic chemotherapy induced anemia Narrative/Plan: mild, improved, no intervention Current Visit: Yes Status: Acute Priority: Medium Code(s): D64.81 - ANEMIA DUE TO ANTINEOPLASTIC CHEMOTHERAPY; T45.1X5A - ADVERSE EFFECT OF ANTINEOPLASTIC AND IMMUNOSUP DRUGS, INIT SNOMED Code(s): 611754886 Plan: Patient is okay from a heme/standpoint to be discharged in the a.m. as long as his vital signs remained stable and no cold chills result is positive. Patient is going to continue with his chemotherapy scheduled for next week
[2018-10-25] MEDS: SODIUM CHLORIDE 0.9% 1,000 ML IV SCH ×3 (01:12→13:12)
[2018-10-25] MEDS: VANCOMYCIN 1,500 MG in SODIUM CHLORIDE 0.9% 250 ML IVPB SCH ×3 (01:26→17:47)
[2018-10-25] MEDS: PIPERACILLIN-TAZOBACTAM 3.375 GM in SODIUM CHLORIDE 0.9% 100 ML IVPB SCH ×3 (01:27→17:48)
[2018-10-25] MEDS: ALBUTEROL NEBULIZED 2.5 MG/3 ML INHALATION PRN ×5 (03:46→19:56)
[2018-10-25] MEDS: ACETAMINOPHEN TAB 325 MG TAB PO PRN ×3 (03:51→21:34)
[2018-10-25] MEDS: HEPARIN SODIUM,PORCINE 5,000 UNIT/ML 1 ML VIAL SQ SCH ×2 (07:41→16:36)
[2018-10-25] MEDS: FAMOTIDINE 20 MG TAB PO SCH ×2 (07:42→21:34)
[2018-10-25 08:10] LABS: Anion Gap 5 mmol/L; Blood Urea Nitrogen 5 mg/dL (9-20); Calcium 8.6 mg/dL (8.4-10.2); Carbon Dioxide 31 mmol/L (22-30); Chloride 103 mmol/L (98-107); Glucose 96 mg/dL (74-99); Potassium 3.6 mmol/L (3.5-5.1); Sodium 139 mmol/L (137-145)
[2018-10-25 08:20] LABS: Basophils # (A) 0.1 k/uL (0-0.2); Basophils % (A) 0 %; Eosinophils % (A) 0 %; HCT 35.9 % (39.0-53.0); HGB 11.5 gm/dL (13.0-17.5); Lymphocytes # (A) 2.2 k/uL (1.0-4.8); Lymphocytes % (A) 12 %; MCH 31.5 pg (25.0-35.0); MCHC 32.1 g/dL (31.0-37.0); Monocytes # (A) 0.4 k/uL (0-1.0); Monocytes % (A) 2 %; Neutrophils # (A) 15.4 k/uL (1.3-7.7); Neutrophils % (A) 84 %; Platelet Count 510 k/uL (150-450); RBC 3.67 m/uL (4.30-5.90); RDW 13.6 % (11.5-15.5); WBC 18.4 k/uL (3.8-10.6)
[2018-10-25 08:55] LABS: Toxic Granulation Present
[2018-10-25] MEDS: SYMBICORT 160-4.5 MCG INHALER INHALATION SCH ×2 (09:23→19:56)
[2018-10-25] MEDS: FILGRASTIM-SNDZ 480 MCG/0.8 ML SYRINGE SQ SCH (10:04)
[2018-10-25] MEDS: BENZONATATE 100 MG CAP PO SCH ×3 (11:05→21:34)
--- NOTE | 2018-10-25 18:30 | P.PN ---
Subjective Progress Note Date: 10/25/18 Principal diagnosis: febrile neutropenia, metastatic small cell lung cancer on treatment Pt seen in f/u, he is feeling much better, anxious to get moving around and go home. No fevers, tinnitus persists but is very mild, no DRISCOLL, dizziness, nausea, appetite is fair, no cough, RENNY. He did have large amt of diarrhea today, stool sent, denied blood, unusual odor, abd pain or cramping. Objective - Vital Signs Vital signs: Vital Signs Temp 98.1 F 10/25/18 12:25 Pulse 66 10/25/18 16:34 Resp 20 10/25/18 14:34 BP 132/84 10/25/18 12:25 Pulse Ox 97 10/25/18 12:25 Intake & Output 10/24/18 10/25/18 10/25/18 18:59 06:59 18:59 Intake Total 350 2450 Balance 350 2450 Intake: Intake, IV Titration 350 900 Amount Piperacillin-Tazobactam 3 100 100 .375 gm In Sodium Chloride 0.9% 100 ml @ 25 mls/hr IVPB Q8H [facility] Rx#: [id number] Sodium Chloride 0.9% 1, 550 000 ml @ 100 mls/hr IV . Q10H [facility] Rx#:[id number] Vancomycin 1,500 mg In 250 250 Sodium Chloride 0.9% 250 ml @ 125 mls/hr IVPB Q8H [facility] Rx#:[id number] Oral 1550 Other: Voiding Method Toilet # Voids 2 4 # Bowel Movements 2 - Constitutional General appearance: Present: cooperative, no acute distress, thin - EENT Eyes: Present: anicteric sclerae, EOMI ENT: Present: hearing grossly normal, normal oropharynx - Respiratory Respiratory: right: diminished, rales (few), left: CTA - Cardiovascular Rhythm: regular Heart sounds: normal: S1, S2 Abnormal Heart Sounds: Absent: systolic murmur, diastolic murmur, rub, S3 Gallop , S4 Gallop, click, other - Peripheral edema leg Peripheral Edema: bilateral: None - Gastrointestinal General gastrointestinal: Present: normal bowel sounds, soft - Neurologic Neurologic: Present: CNII-XII intact - Musculoskeletal Musculoskeletal: Present: strength equal bilaterally - Psychiatric Psychiatric: Present: A&O x's 3, appropriate affect, intact judgment & insight - Labs CBC & Chem 7: 10/25/18 07:32 10/25/18 07:32 Labs: Abnormal Lab Results - Last 24 Hours (Table) 10/25/18 10/25/18 Range/Units 07:32 07:32 WBC 18.4 H (3.8-10.6) k/uL RBC 3.67 L (4.30-5.90) m/uL Hgb 11.5 L (13.0-17.5) gm/dL Hct 35.9 L (39.0-53.0) % Plt Count 510 H (150-450) k/uL Neutrophils # 15.4 H (1.3-7.7) k/uL Carbon Dioxide 31 H (22-30) mmol/L BUN 5 L (9-20) mg/dL Creatinine 0.56 L (0.66-1.25) mg/dL Microbiology - Last 24 Hours (Table) 10/21/18 17:55 Blood Culture - Preliminary Blood No Growth after 72 hours Assessment and Plan (1) Febrile neutropenia Narrative/Plan: No fevers>48 hours, cultures negative >48 hours, ANC recovered, GCSF discontinued. Current Visit: Yes Status: Acute Priority: High Code(s): D70.9 - NEUTROPENIA, UNSPECIFIED; R50.81 - FEVER PRESENTING WITH CONDITIONS CLASSIFIED ELSEWHERE SNOMED Code(s): 519993734 (2) Small cell lung cancer Narrative/Plan: Metastatic disease. Chemo will continue on schedule at this time. XRT post chemo. Current Visit: Yes Status: Acute Priority: High Code(s): C34.90 - MALIGNANT NEOPLASM OF UNSP PART OF UNSP BRONCHUS OR LUNG SNOMED Code(s): 263956097 (3) Antineoplastic chemotherapy induced anemia Narrative/Plan: Recovering Current Visit: Yes Status: Acute Priority: Medium Code(s): D64.81 - ANEMIA DUE TO ANTINEOPLASTIC CHEMOTHERAPY; T45.1X5A - ADVERSE EFFECT OF ANTINEOPLASTIC AND IMMUNOSUP DRUGS, INIT SNOMED Code(s): 109421976 Plan: Patient is okay from a heme/standpoint to be discharged in the a.m. Patient is going to continue with his chemotherapy scheduled for next week, he has appt date and time
[2018-10-26] MEDS: HEPARIN SODIUM,PORCINE 5,000 UNIT/ML 1 ML VIAL SQ SCH ×2 (00:13→08:26)
[2018-10-26] MEDS: SODIUM CHLORIDE 0.9% 1,000 ML IV SCH (00:14)
[2018-10-26] MEDS: ALBUTEROL NEBULIZED 2.5 MG/3 ML INHALATION PRN ×4 (01:00→12:46)
[2018-10-26] MEDS: VANCOMYCIN 1,500 MG in SODIUM CHLORIDE 0.9% 250 ML IVPB SCH ×2 (02:26→11:27)
[2018-10-26] MEDS: PIPERACILLIN-TAZOBACTAM 3.375 GM in SODIUM CHLORIDE 0.9% 100 ML IVPB SCH ×2 (02:27→09:09)
[2018-10-26 05:51] VITALS: BP 131/74; RESP 18; TEMP 98.2
[2018-10-26] MEDS: FAMOTIDINE 20 MG TAB PO SCH (08:26)
[2018-10-26] MEDS: BENZONATATE 100 MG CAP PO SCH (08:26)
[2018-10-26] MEDS: ACETAMINOPHEN TAB 325 MG TAB PO PRN (08:27)
[2018-10-26] MEDS ORDERED: VANCOMYCIN TROUGH DUE 1 EACH MISC MISCELLANE ONE (09:00)
[2018-10-26] MEDS: SYMBICORT 160-4.5 MCG INHALER INHALATION SCH (09:07)
[2018-10-26 09:37] LABS: HCT 39.3 % (39.0-53.0); MCH 30.4 pg (25.0-35.0); MCHC 30.5 g/dL (31.0-37.0); MCV 99.7 fL (80.0-100.0); Mean Platelet Volume 7.2; Platelet Count 594 k/uL (150-450); RBC 3.94 m/uL (4.30-5.90); RDW 13.9 % (11.5-15.5)
[2018-10-26 09:49] LABS: Anion Gap 6 mmol/L; Blood Urea Nitrogen 4 mg/dL (9-20); Calcium 8.6 mg/dL (8.4-10.2); Carbon Dioxide 30 mmol/L (22-30); Chloride 102 mmol/L (98-107); Glucose 102 mg/dL (74-99); Potassium 3.8 mmol/L (3.5-5.1); Sodium 138 mmol/L (137-145)
[2018-10-26 11:00] LABS: Band Neutrophils % 2 %; Lymphocytes # (M) 2.72 k/uL (1.0-4.8); Metamyelocytes # (M) 0.68 k/uL (0); Metamyelocytes % 4 %; Monocytes # (M) 0.68 k/uL (0-1.0); Myelocytes # (M) 0.68 k/uL (0); Myelocytes % 4 %; Neutrophils % (M) 72 %; Nucleated Red Blood Cells 0 /100 WBC (0-0); Total Cells Counted 200
[2018-10-26 12:47] VITALS: PULSE 68
--- NOTE | 2018-10-26 14:37 | P.PN ---
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 Objective - Vital Signs Vital signs: Vital Signs Temp 98.2 F 10/26/18 05:00 Pulse 68 10/26/18 12:55 Resp 18 10/26/18 05:00 BP 131/74 10/26/18 05:00 Pulse Ox 96 10/26/18 05:00 Intake & Output 10/25/18 10/26/18 10/26/18 18:59 06:59 18:59 Intake Total 2570 2029 240 Balance 2572029 240 Intake: Intake, IV Titration 900 1550 Amount Piperacillin-Tazobactam 3 100 100 .375 gm In Sodium Chloride 0.9% 100 ml @ 25 mls/hr IVPB Q8H [facility] Rx#: [id number] Sodium Chloride 0.9% 1, 550 1200 000 ml @ 100 mls/hr IV . Q10H [facility] Rx#:[id number] Vancomycin 1,500 mg In 250 250 Sodium Chloride 0.9% 250 ml @ 125 mls/hr IVPB Q8H [facility] Rx#:[id number] Oral 1670 480 240 Other: Voiding Method Toilet Toilet # Voids 4 3 # Bowel Movements 2 - Exam A&Ox4, NAD, resp even and unlabored, moving ad sheri, no assistance, good color - Constitutional General appearance: Present: cooperative, no acute distress, thin - Labs CBC & Chem 7: 10/26/18 08:45 10/26/18 08:45 Labs: Abnormal Lab Results - Last 24 Hours (Table) 10/26/18 10/26/18 Range/Units 08:45 08:45 WBC 17.0 H (3.8-10.6) k/uL RBC 3.94 L (4.30-5.90) m/uL Hgb 12.0 L (13.0-17.5) gm/dL MCHC 30.5 L (31.0-37.0) g/dL Plt Count 594 H (150-450) k/uL Neutrophils # (Manual) 12.50 H (1.3-7.7) k/uL Metamyelocytes # (Man) 0.68 H (0) k/uL Myelocytes # (Manual) 0.68 H (0) k/uL BUN 4 L (9-20) mg/dL Creatinine 0.59 L (0.66-1.25) mg/dL Glucose 102 H (74-99) mg/dL Microbiology - Last 24 Hours (Table) 10/21/18 17:55 Blood Culture - Preliminary Blood No Growth after 96 hours Assessment and Plan (1) Febrile neutropenia Narrative/Plan: WBC ANC resolved with GCSF adminstration Status: Resolved Priority: High Code(s): D70.9 - NEUTROPENIA, UNSPECIFIED; R50.81 - FEVER PRESENTING WITH CONDITIONS CLASSIFIED ELSEWHERE SNOMED Code(s) : 899529346 (2) Small cell lung cancer Narrative/Plan: Metastatic disease. Chemo will continue on schedule at this time, he has appt for Tuesday already scheduled. XRT post chemo. Status: Acute Priority: High Code(s): C34.90 - MALIGNANT NEOPLASM OF UNSP PART OF UNSP BRONCHUS OR LUNG SNOMED Code(s): 851516238 (3) Antineoplastic chemotherapy induced anemia Status: Resolved Priority: Medium Code(s): D64.81 - ANEMIA DUE TO ANTINEOPLASTIC CHEMOTHERAPY; T45.1X5A - ADVERSE EFFECT OF ANTINEOPLASTIC AND IMMUNOSUP DRUGS, INIT SNOMED Code(s): 323612476 Plan: Patient is okay from a heme/standpoint to be discharged
--- NOTE | 2018-10-26 17:29 | PN ---
PROGRESS NOTE DATE OF SERVICE: 10/25/2018 CHIEF COMPLAINT: Fever and leukopenia. HISTORY OF PRESENT ILLNESS: This gentleman is doing well. White count is up to around 6100. He is having no fever, chills, cough, abdominal pain, etc. PHYSICAL EXAMINATION: His chest is quite clear. Cardiac exam is normal. Abdomen is soft, nontender. IMPRESSION: 1. Status post fever of unknown origin. 2. Pancytopenia. 3. Metastatic small-cell carcinoma of the lung. PLAN: Continue to follow with Hematology. He can probably go home anytime, and we will wait for their clearance. MMODL / IJN: [id number] /
--- NOTE | 2018-10-26 19:59 | DS ---
DISCHARGE SUMMARY CHIEF COMPLAINT: Fever, chills, FUO and leukopenia. HISTORY OF PRESENT ILLNESS AND PHYSICAL EXAM: Details of this man's history and physical can be found in the initial workup. LABORATORY STUDIES: While he was in a hospital, he had laboratory studies, details of which can be found in the laboratory section of chart. COURSE IN HOSPITAL: After admission, he was placed on bedrest, started on intravenous fluids and cultured and placed on the antibiotics. He was seen and followed by Oncology. White cell count was extremely low, but then started to rise spontaneously. He had no further problems with chest pain, fever, shortness of breath, chills, etc. He is doing well. It was felt he could be discharged on the and he will be seen in the office in several days. FINAL DIAGNOSIS: 1. Fever of unknown origin. 2. Pancytopenia, iatrogenic. 3. Metastatic small cell carcinoma of the lung. 4. Chronic obstructive pulmonary disease. OPERATIONS: None. CONSULTATIONS: Hematology/Oncology. He is improved. MMODL / IJN: [id number] /
== END 2018-10-26 14:08 | disposition home or self-care (01) | DRG 809 ==
LOC: EC 17:00 → 4SSUR 19:00 → 3NMEDONC 10-23 15:32
PROVIDERS: ADMIT Family Medicine; ATTEND Family Medicine
DX: D61.810 Antineoplastic chemotherapy induced pancytopenia (principal); C34.32 Malignant neoplasm of lower lobe, left bronchus or lung; C77.0 Secondary and unspecified malignant neoplasm of lymph nodes of head, face and neck; C77.1 Secondary and unspecified malignant neoplasm of intrathoracic lymph nodes; C79.31 Secondary malignant neoplasm of brain; E22.2 Syndrome of inappropriate secretion of antidiuretic hormone; J44.0 Chronic obstructive pulmonary disease with (acute) lower respiratory infection; T45.1X5A Adverse effect of antineoplastic and immunosuppressive drugs, initial encounter; Z87.891 Personal history of nicotine dependence; R50.9 Fever, unspecified; Z82.49 Family history of ischemic heart disease and other diseases of the circulatory system; Z83.3 Family history of diabetes mellitus; Z82.3 Family history of stroke
CPT/HCPCS: 71046; 80048; 80053; 80202; 82550; 82553; 82570; 83605; 83735; 83930; 83935; 84100; 84300; 84443; 84484; 85025; 85610; 85730; 86850; 86900; 86901; 87040; 87324; 87502; 94640

== ENCOUNTER → 2018-11-09 | Outpatient (CLI) | payer OTHER ==
[2018-11-09 12:28] LABS: Blood Urea Nitrogen 18 mg/dL (9-20)
--- NOTE | 2018-11-09 13:10 | CT ---
EXAMINATION TYPE: CT angio chest DATE OF EXAM: 11/09/2018 COMPARISON: 08/25/2018 HISTORY: Shortness of breath and tachycardia. CT DLP: 359 mGycm. Automated Exposure Control for Dose Reduction was Utilized. CONTRAST: CTA scan of the thorax is performed with IV Contrast, patient injected with 100 mL of Isovue 370, pul monary embolism protocol. MIP Images are created on CT scanner and reviewed. FINDINGS: There is improvement in the previously seen left perihilar mass indicating response to treatment crowell colin there is an infiltrative process surrounding the left main pulmonary artery and aorta in the pret dianne space, prevascular space and aorticopulmonary window that may represent adenopathy, residual tumor, and/or post therapeutic change. There is occlusion of a left lower lobe subsegmental bronchus to the posterior basilar segment with downstream postobstructive atelectasis. Few foci of low density are seen within this consolidation and superimposed pneumonia is possible. Although there is slightly suboptimal opacification of the main pulmonary artery as there are similar opacification to the ascending thoracic aorta, there is no gross evidence of pulmonary embolus. Hear t is not enlarged. No pericardial effusion. No axillary adenopathy. Upper abdomen is grossly unremark able. There is left hemidiaphragm elevation secondary to the left-sided volume loss. Groundglass opacities are seen within the right upper lobe near the interlobar fissure on series 5 im age 86 as well as within the lingula on image 120 and right lower lobe on image 106 and 111. Biapical pleural parenchymal scarring is noted. IMPRESSION: 1. No evidence of pulmonary embolism. 2. Response to treatment in regards to the patient's left perihilar mass, however there is occlusion of a left subsegmental bronchus and downstream subsegmental atelectasis with surrounding pneumonitis. Left perihilar abnormal soft tissue thickening and infiltrative process in the mediastinum is again seen. Few foci of low-density are present within the left lower lobe posterior basilar segment atelec tasis that may relate to superimposed pneumonia. 2. New multifocal groundglass opacities most spiculated and suspicious in the right lower lobe. These could represent areas of pneumonitis or metastasis and short-term follow-up is recommended to assess for interval growth or resolution.
== END | disposition home or self-care (01) ==
LOC: RADCTMAIN 11:27
PROVIDERS: ATTEND Registered Nurse Oncology
DX: J18.9 Pneumonia, unspecified organism (principal); J98.11 Atelectasis; R91.8 Other nonspecific abnormal finding of lung field; R06.2 Wheezing
CPT/HCPCS: 82565; 84520; 71275; 36415; Q9967

== ENCOUNTER → 2018-11-30 | Outpatient (CLI) | payer OTHER ==
[2018-11-30 14:20] LABS: Blood Urea Nitrogen 17 mg/dL (9-20)
--- NOTE | 2018-12-01 04:48 | CT ---
EXAMINATION TYPE: CT chest w con DATE OF EXAM: 11/30/2018 COMPARISON: 11/09/2018 and 09/30/2018 HISTORY: 58-year-old male Lung cancer follow up. TECHNIQUE: Contiguous axial scanning of the chest after the administration of 100 mL of Isovue M300. Coronal/sagittal reconstructions performed. CT DLP: 249mGycm. Automatic exposure control utilized for a dose reduction. FINDINGS: Heart normal size without pericardial effusion. Mild coronary vessel calcifications are present. Aortic root is ectatic and 3.9 cm. Remainder of the aorta is normal caliber with conventional arch wa s a branching anatomy. Previously seen right supraclavicular lymph node is now smaller 3 mm, axial image 4. Previously seen right thoracic inlet lymph node is also small now a 3 mm, axial image 7. Right paratracheal lymph node now measures 1.8 x 1.4 cm versus 2.0 x 1.5 cm on 11/09/2018 and 3.3 cm o n initial PET/CT. Continued but overall decreased bulk of AP window, left perihilar, left infrahilar, left periaortic a nd paraesophageal, and left lower lobe are soft tissue bulk. This measures up to 2.3 cm thick posteri or to the left main pulmonary artery at the level of the proximal left mainstem bronchus versus 3.2 c m thick on 11/09/2018 and at least 4.6 cm thick on initial PET/CT. Persistent partial encasement of left lower lobe proximal bronchi and opacity extending in the medial left lower lobe measuring up to 4.1 x 2.8 cm versus 4.5 x 2.7 cm, previously. As a hypermetabolic ma ss was not identified in this location at that time, findings may represent improving volume loss and pneumonitis rather than neoplasm here. Mild centrilobular emphysema. No new pulmonary nodules.. No pleural effusion. Visualized upper abdomen shows clear adrenal glands. Bones: Some vague sclerosis right lateral seventh rib, axial image 44 is unchanged. Additional thicke jerry and sclerosis of the left anterior eighth and ninth ribs are also unchanged. IMPRESSION: 1. Left hilar and left infrahilar neoplasm continues to show decreasing bulk (2.3 cm thick at the hil ar level versus 3.2 cm on 11/09/2018 and 4.6 cm on initial PET/CT). 2. The left lower lobe peribronchovascular encasement also show some persistence but similar improvem ent. 3. Contiguous medial left lower lobe opacity measures 4.1 cm versus 4.5 cm on 11/09/2018. As no hyperm etabolic mass was seen on the patient's initial PET/CT in this location, findings could represent com bination of residual atelectasis and pneumonitis. 4. Decreasing size of the right paratracheal lymph node (1.8 cm now versus 2.0 and 3.3 cm on the lakhwinder ent's 2 prior studies, respectively). 5. The previous right supraclavicular and right thoracic inlet lymph nodes are now tiny and 3 mm. 6. Unchanged focal sclerosis along the right lateral seventh rib and left anterior eighth and ninth r ibs, possible posttraumatic change in the setting of injury. Stable osseous metastases would be the a lternative consideration.
== END ==
LOC: RADCTMAIN 13:44
PROVIDERS: ATTEND Internal Medicine Hematology & Oncology
DX: C34.92 Malignant neoplasm of unspecified part of left bronchus or lung (principal)
CPT/HCPCS: 82565; 84520; 71260; 36415; Q9967

== ENCOUNTER 2018-12-03 17:58 | Inpatient (IN) | payer OTHER ==
[2018-12-03] MEDS ORDERED: PIPERACILLIN-TAZOBACTAM 3.375 GM in SODIUM CHLORIDE 0.9% 100 ML IVPB STA (18:31)
[2018-12-03] MEDS ORDERED: ACETAMINOPHEN TAB 500 MG TAB PO STA (18:31)
[2018-12-03] MEDS ORDERED: IBUPROFEN 600 MG TAB PO STA (18:31)
--- NOTE | 2018-12-03 18:38 | ED ---
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 Patient states currently undergoing chemo. Patient states he came in today because he spiked a fever at home so he decided come in per patient denies any new or worsening cough. Patient denies shortness of breath or difficulty breathing worsen normal. Patient denies any chest pain. Patient denies any lesions or areas of erythema. Patient denies any dysuria hematuria urinary frequency. Patient denies any vomiting or diarrhea. Patient denies any abdominal pain patient denies headache patient denies numbness weakness. Patient denies any lighthead edness dizziness or near syncopal episode. - Related Data Home Medications Medication Instructions Recorded Confirmed Albuterol Inhaler [Ventolin Hfa 1 - 2 puff INHALATION RT-Q6H PRN 09/27/18 12/03/18 Inhaler] Ergocalciferol (Vitamin D2) 50,000 unit PO SA 10/22/18 12/03/18 [Vitamin D2] Omeprazole 20 mg PO AC-BID 10/22/18 12/03/18 Acetaminophen Tab [Tylenol] 1,000 mg PO Q8HR PRN 12/03/18 12/03/18 Benzonatate [Tessalon Perles] 100 mg PO Q8HR PRN 12/03/18 12/03/18 Budesonide/Formoterol Fumarate 2 puff INHALATION BID 12/03/18 12/03/18 [Symbicort 160-4.5 Mcg Inhaler] Allergies Allergy/AdvReac Type Severity Reaction Status Date / Time No Known Allergies Allergy Verified 12/03/18 18:20 Review of Systems ROS Statement: Those systems with pertinent positive or pertinent negative responses have been documented in the HPI. ROS Other: All systems not noted in ROS Statement are negative. Past Medical History Past Medical History: Cancer Additional Past Medical History / Comment(s): pilonidal cyst, I&D of cyst on buttocks in January 2018, required IV antibiotics and hospitalization. Recent diagnosis of lung cancer, with mets to lymph node in neck and brain. currently receiving chemotherapy infusions. History of Any Multi-Drug Resistant Organisms: None Reported Additional Past Surgical History / Comment(s): hemmorhoid surgery, fistula repair,facial reconstructions approx 25yrs Past Anesthesia/Blood Transfusion Reactions: No Reported Reaction Past Psychological History: No Psychological Hx Reported Smoking Status: Former smoker Past Alcohol Use History: Daily Past Drug Use History: None Reported - Past Family History Father Family Medical History: CVA/TIA, Diabetes Mellitus Mother Family Medical History: Cancer Brother(s) Family Medical History: Myocardial Infarction ([place]) General Exam - General Exam Comments Initial Comments: GENERAL: Patient is well-developed and well-nourished. Patient is nontoxic and well- hydrated and is in mild distress. ENT: Neck is soft and supple. No significant lymphadenopathy is noted. Oropharynx is clear. Moist mucous membranes. Neck has full range of motion without eliciting any pain. EYES: The sclera were anicteric and conjunctiva were pink and moist. Extraocular movements were intact and pupils were equal round and reactive to light. Eyelids were unremarkable. PULMONARY: Unlabored respirations. Good breath sounds bilaterally. No audible rales r honchi or wheezing was noted. CARDIOVASCULAR: There is a regular rate and rhythm without any murmurs gallops or rubs. ABDOMEN: Soft and nontender with normal bowel sounds. No palpable organomegaly was noted. There is no palpable pulsatile mass. SKIN: Skin is clear with no lesions or rashes and otherwise unremarkable. NEUROLOGIC: Patient is alert and oriented x3. Cranial nerves II through XII are grossly intact. Motor and sensory are also intact. Normal speech, volume and content. Symmetrical smile. MUSCULOSKELETAL: Normal extremities with adequate strength and full range of motion. No lower extremity swelling or edema. No calf tenderness. LYMPHATICS: No significant lymphadenopathy is noted PSYCHIATRIC: Normal psychiatric evaluation. Limitations: no limitations Course Vital Signs 12/03/18 12/03/18 12/03/18 18:04 18:44 18:45 Temperature 100 F H Pulse Rate 124 H Respiratory 20 18 Rate Blood Pressure 119/84 122/85 O2 Sat by Pulse 96 95 Oximetry 12/03/18 12/03/18 18:50 18:58 Temperature 102.4 F H Pulse Rate 116 H Respiratory 20 Rate Blood Pressure 122/85 O2 Sat by Pulse 97 Oximetry Medical Decision Making - Medical Decision Making EKG shows sinus tachycardia at 108 bpm [place] interval is on a 42 QRS is 84 QT interval 334 QTC is 447. Patient's EKG shows no ST segment elevation or d epression or T wave abnormalities are noted. Chest x-ray shows a retrocardiac infiltrate possibly. Patient was started on Zosyn. was called back I admitted the patient Dr. Estrada and I continued antibiotics on the floor and I consult oncology. - Lab Data Result diagrams: 12/03/18 18:50 12/03/18 18:50 Lab Results 12/03/18 12/03/18 12/03/18 Range/Units 18:50 18:50 18:50 WBC 8.4 (3.8-10.6) k/uL RBC 3.41 L (4.30-5.90) m/uL Hgb 11.1 L (13.0-17.5) gm/dL Hct 33.3 L (39.0-53.0) % MCV 97.6 (80.0-100.0) fL MCH 32.6 (25.0-35.0) pg MCHC 33.4 (31.0-37.0) g/dL RDW 16.3 H (11.5-15.5) % Plt Count 153 D (150-450) k/uL Neutrophils % 75 % Lymphocytes % 18 % Monocytes % 5 % Eosinophils % 0 % Basophils % 0 % Neutrophils # 6.3 (1.3-7.7) k/uL Lymphocytes # 1.5 (1.0-4.8) k/uL Monocytes # 0.4 (0-1.0) k/uL Eosinophils # 0.0 (0-0.7) k/uL Basophils # 0.0 (0-0.2) k/uL Anisocytosis Slight Macrocytosis Slight PT (9.0-12.0) sec INR (<1.2) APTT (22.0-30.0) sec Sodium 135 L (137-145) mmol/L Potassium 3.9 (3.5-5.1) mmol/L Chloride 101 (98-107) mmol/L Carbon Dioxide 23 (22-30) mmol/L Anion Gap 11 mmol/L BUN 8 L (9-20) mg/dL Creatinine 0.58 L (0.66-1.25) mg/dL Est GFR (CKD-EPI)AfAm >90 (>60 ml/min/1.73 sqM) Est GFR (CKD-EPI)NonAf >90 (>60 ml/min/1.73 sqM) Glucose 85 (74-99) mg/dL Plasma Lactic Acid Hardeep (0.7-2.0) mmol/L Calcium 8.7 (8.4-10.2) mg/dL Total Bilirubin 0.3 (0.2-1.3) mg/dL AST 20 (17-59) U/L ALT 28 (21-72) U/L Alkaline Phosphatase 88 (38-126) U/L Total Protein 6.0 L (6.3-8.2) g/dL Albumin 3.5 (3.5-5.0) g/dL Influenza Type A RNA Not Detected (Not Detectd) Influenza Type B (PCR) Not Detected (Not Detectd) 12/03/18 12/03/18 Range/Units 18:50 18:50 WBC (3.8-10.6) k/uL RBC (4.30-5.90) m/uL Hgb (13.0-17.5) gm/dL Hct (39.0-53.0) % MCV (80.0-100.0) fL MCH (25.0-35.0) pg MCHC (31.0-37.0) g/dL RDW (11.5-15.5) % Plt Count (150-450) k/uL Neutrophils % % Lymphocytes % % Monocytes % % Eosinophils % % Basophils % % Neutrophils # (1.3-7.7) k/uL Lymphocytes # (1.0-4.8) k/uL Monocytes # (0-1.0) k/uL Eosinophils # (0-0.7) k/uL Basophils # (0-0.2) k/uL Anisocytosis Macrocytosis PT 9.6 (9.0-12.0) sec INR 0.9 (<1.2) APTT 26.7 (22.0-30.0) sec Sodium (137-145) mmol/L Potassium (3.5-5.1) mmol/L Chloride (98-107) mmol/L Carbon Dioxide (22-30) mmol/L Anion Gap mmol/L BUN (9-20) mg/dL Creatinine (0.66-1.25) mg/dL Est GFR (CKD-EPI)AfAm (>60 ml/min/1.73 sqM) Est GFR (CKD-EPI)NonAf (>60 ml/min/1.73 sqM) Glucose (74-99) mg/dL Plasma Lactic Acid Hardeep 1.7 (0.7-2.0) mmol/L Calcium (8.4-10.2) mg/dL Total Bilirubin (0.2-1.3) mg/dL AST (17-59) U/L ALT (21-72) U/L Alkaline Phosphatase (38-126) U/L Total Protein (6.3-8.2) g/dL Albumin (3.5-5.0) g/dL Influenza Type A RNA (Not Detectd) Influenza Type B (PCR) (Not Detectd) Disposition Clinical Impression: Pneumonia Disposition: ADMITTED IP TO THIS HOSP Referrals: Dionicio Altamirano MD [Primary Care Provider] - 1-2 days Time of Disposition: 20:39
[2018-12-03] MEDS: SODIUM CHLORIDE 0.9% 500 ML 500 ML IV SCH ×3 (18:47→23:04)
[2018-12-03 19:05] LABS: Anisocytosis Slight; Basophils % (A) 0 %; Eosinophils % (A) 0 %; HCT 33.3 % (39.0-53.0); HGB 11.1 gm/dL (13.0-17.5); Lymphocytes # (A) 1.5 k/uL (1.0-4.8); Lymphocytes % (A) 18 %; MCH 32.6 pg (25.0-35.0); MCHC 33.4 g/dL (31.0-37.0); MCV 97.6 fL (80.0-100.0); Macrocytosis Slight; Mean Platelet Volume 7.3; Monocytes # (A) 0.4 k/uL (0-1.0); Monocytes % (A) 5 %; Neutrophils # (A) 6.3 k/uL (1.3-7.7); Neutrophils % (A) 75 %; RBC 3.41 m/uL (4.30-5.90); RDW 16.3 % (11.5-15.5); WBC 8.4 k/uL (3.8-10.6)
[2018-12-03 19:14] LABS: ALT 28 U/L (21-72); AST 20 U/L (17-59); Albumin 3.5 g/dL (3.5-5.0); Alkaline Phosphatase 88 U/L (38-126); Anion Gap 11 mmol/L; Blood Urea Nitrogen 8 mg/dL (9-20); Calcium 8.7 mg/dL (8.4-10.2); Carbon Dioxide 23 mmol/L (22-30); Chloride 101 mmol/L (98-107); Glucose 85 mg/dL (74-99); Platelet Count 153 k/uL (150-450); Potassium 3.9 mmol/L (3.5-5.1); Sodium 135 mmol/L (137-145); Total Bilirubin 0.3 mg/dL (0.2-1.3)
[2018-12-03 19:22] LABS: INR 0.9 (<1.2); Partial Thromboplastin Time 26.7 sec (22.0-30.0); Prothrombin Time 9.6 sec (9.0-12.0)
--- NOTE | 2018-12-03 19:36 | XR ---
EXAMINATION TYPE: XR chest 2V DATE OF EXAM: 12/03/2018 COMPARISON: Prior chest x-ray 10/21/[address] chest 11/30/2018 HISTORY: Lung cancer, fever TECHNIQUE: Frontal and lateral views of the chest are obtained. FINDINGS: There is some improvement in aeration in the left lower lobe. No pneumothorax. Heart size is normal. No sizable effusion. IMPRESSION: Findings compatible with left lower lobe atelectasis versus pneumonia or tumor
[2018-12-03] MEDS ORDERED: PNEUMONIA PROTOCOL UTILIZED 1 EACH MISC PO PRN (20:41)
[2018-12-03] MEDS ORDERED: PIPERACILLIN-TAZOBACTAM 3.375 GM in SODIUM CHLORIDE 0.9% 100 ML IVPB ONE (20:46)
[2018-12-03 22:36] VITALS: BMI 22.2
[2018-12-03] MEDS ORDERED: IPRATROPIUM-ALBUTEROL 3 ML NEB INHALATION PRN (23:23)
[2018-12-03] MEDS ORDERED: ACETAMINOPHEN TAB 325 MG TAB PO PRN (23:24)
[2018-12-03] MEDS: LEVOFLOXACIN 750MG-D5W PMX 750 MG in DEXTROSE/WATER 1 150ML.BAG IVPB SCH (23:40)
[2018-12-03] MEDS: IPRATROPIUM-ALBUTEROL 3 ML NEB INHALATION SCH (23:46)
[2018-12-04] MEDS: PANTOPRAZOLE 40 MG TABLET PO SCH ×3 (00:23→16:51)
[2018-12-04] MEDS: BENZONATATE 100 MG CAP PO SCH ×4 (00:23→23:40)
[2018-12-04] MEDS: DEXTROSE 5%-0.2% NACL 1,000 ML IV SCH ×4 (01:22→23:40)
[2018-12-04] MEDS: PIPERACILLIN-TAZOBACTAM 3.375 GM in SODIUM CHLORIDE 0.9% 100 ML IVPB SCH ×4 (01:58→23:40)
[2018-12-04 03:59] LABS: Appearance,Urine Clear (Clear); Bilirubin,Urine Negative (Negative); Blood,Urine Negative (Negative); Color,Urine Yellow; Glucose,Urine (UA) Negative (Negative); Ketones,Urine Negative (Negative); Leukocyte Esterase,Urine Negative (Negative); Nitrite,Urine Negative (Negative); PH, Urine 5.5 (5.0-8.0); Protein,Urine Negative (Negative); Specific Gravity,Urine 1.015 (1.001-1.035); Urobilinogen,Urine <2.0 mg/dL (<2.0)
--- NOTE | 2018-12-04 08:07 | XR ---
EXAMINATION TYPE: XR chest 2V DATE OF EXAM: 12/04/2018 COMPARISON: Chest x-ray from yesterday. CT chest from 4 days ago[address] Old[address] chest [address] August 25, 2018. HISTORY: History of lung cancer with high-grade fever. TECHNIQUE: Frontal and lateral views of the chest are obtained. FINDINGS: There is background chronic emphysematous change with persistent retrocardiac opacity conf irmed on 2 views. Right lung is clear. No pleural effusion or pneumothorax is evident bilaterally. T he cardiac silhouette size is within normal limits. The osseous structures are intact. IMPRESSION: Chronic emphysematous change with persistent posterior medial left basilar acute infiltr ate and/or atelectasis. No significant change from x-ray one day earlier.
[2018-12-04] MEDS: IPRATROPIUM-ALBUTEROL 3 ML NEB INHALATION SCH ×4 (08:34→20:34)
[2018-12-04] MEDS: SYMBICORT 160-4.5 MCG INHALER INHALATION SCH ×2 (08:34→20:33)
[2018-12-04] MEDS: ACETAMINOPHEN TAB 500 MG TAB PO PRN ×2 (10:39→17:54)
--- NOTE | 2018-12-04 17:30 | HP ---
HISTORY AND PHYSICAL CHIEF COMPLAINT: Fever and chills. HISTORY OF PRESENT ILLNESS: This is the first known admission for this 58-year-old white male who was recently diagnosed with metastatic carcinoma of the lung. He started to notice fever and chills and came to the emergency room, where he was thought to possibly have pneumonitis. He denies any chest pain, hemoptysis, purulent sputum production, urinary complaints, bowel complaints, etc. He is undergoing chemotherapy. REVIEW OF SYSTEMS: He denies any focal neurologic deficits, difficulty with vision or hearing, cough, hemoptysis, abdominal pain, nausea, vomiting, hematemesis, melena, hematochezia, jaundice, hematuria, frequency, urgency, renal failure, diabetes, etc. Past medical history, family history, and personal and social histories are all otherwise unremarkable and noncontributory. He is NOT ALLERGIC TO ANY MEDICATION. He is on vitamin D, dexamethasone, omeprazole, prochlorperazine. Remainder of his history is unremarkable except that he has been a heavy smoker. PHYSICAL EXAMINATION: Blood pressure 156/98 with a pulse of 100, respirations of 35 and temperature 100. In general he appeared to be well developed, well nourished, in no acute distress. Skin color was normal. Skin was warm and dry. Scalp was bald secondary to his treatments. Lymph nodes were not enlarged. Chest was clear. Breath sounds were diminished. Cardiac exam was normal. Abdomen was soft, nontender without visceromegaly or masses. Bowel sounds were present. Extremities were normal. IMPRESSION: 1. Fever of unknown origin. 2. ? pneumonitis. 3. Metastatic carcinoma of the lung. 4. Chronic obstructive pulmonary disease. PLAN: 1. Bed rest. 2. IV fluids. 3. Appropriate cultures. 4. Consult with Hematology/Oncology. MMODL / IJN: [id number] /
--- NOTE | 2018-12-04 17:36 | PN ---
PROGRESS NOTE DATE OF SERVICE: 12/04/2018 CHIEF COMPLAINT: Fever and probable pneumonitis. HISTORY OF PRESENT ILLNESS: This gentleman is feeling better. Temperature is down. He has had no chills, chest pain, hemoptysis, sputum production, etc. PHYSICAL EXAMINATION: Chest is fairly clear but does have increased AP diameter. Cardiac exam is normal. Abdomen is soft, nontender. IMPRESSION: 1. Fever of unknown origin. 2. Probable obstructive pneumonia. 3. Metastatic carcinoma of the lung. PLAN: 1. Bed rest. 2. IV fluids. 3. Updrafts. 4. Antibiotics. 5. Consult Oncology. MMODL / IJN: [id number] /
[2018-12-04] MEDS: LEVOFLOXACIN 750MG-D5W PMX 750 MG in DEXTROSE/WATER 1 150ML.BAG IVPB SCH (20:42)
[2018-12-05] MEDS: ACETAMINOPHEN TAB 500 MG TAB PO PRN ×2 (01:12→09:41)
[2018-12-05] MEDS: DEXTROSE 5%-0.2% NACL 1,000 ML IV SCH ×3 (06:06→23:03)
[2018-12-05] MEDS: IPRATROPIUM-ALBUTEROL 3 ML NEB INHALATION SCH ×4 (07:15→19:53)
[2018-12-05] MEDS: SYMBICORT 160-4.5 MCG INHALER INHALATION SCH ×2 (07:15→19:53)
[2018-12-05] MEDS: PANTOPRAZOLE 40 MG TABLET PO SCH ×2 (09:35→16:43)
[2018-12-05] MEDS: BENZONATATE 100 MG CAP PO SCH ×3 (09:35→23:03)
[2018-12-05] MEDS: PIPERACILLIN-TAZOBACTAM 3.375 GM in SODIUM CHLORIDE 0.9% 100 ML IVPB SCH ×3 (09:35→23:03)
--- NOTE | 2018-12-05 10:49 | P.CONS ---
History of Present Illness - Reason for Consult Consult date: 12/04/18 Known Lung Cancer Requesting physician: Rosas Kaur - Chief Complaint Fever - History of Present Illness Darrick is a patient of Dr. Aguilar who is currently in treatment for extensive stage small cell lung cancer. 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 He presented for fevers and chills, negro cultures completed on presentation and antibiotics initiated. He has remained afebrile since. Review of Systems A 14 point review of systems assessed and completed and all negative except HPI. Past Medical History Past Medical History: Cancer, COPD Additional Past Medical History / Comment(s): pilonidal cyst, I&D of cyst on buttocks in January 2018, required IV antibiotics and hospitalization. Recent diagnosis of aug 2017 lung cancer, with mets to lymph node in neck and brain. currently receiving chemotherapy infusions. last chemo was on nov 13, tremors in hands post chemo right hand is worse than left, ringing in ears post chemo History of Any Multi-Drug Resistant Organisms: None Reported Additional Past Surgical History / Comment(s): hemmorhoid surgery, fistula repair,facial reconstructions approx 25yrs Past Anesthesia/Blood Transfusion Reactions: No Reported Reaction Past Psychological History: No Psychological Hx Reported Smoking Status: Former smoker Past Alcohol Use History: Daily Additional Past Alcohol Use History / Comment(s): drinks 4-8 beers per day Past Drug Use History: None Reported - Past Family History Father Family Medical History: CVA/TIA, Diabetes Mellitus Mother Family Medical History: Cancer Brother(s) Family Medical History: Myocardial Infarction ([place]) Medications and Allergies Home Medications Medication Instructions Recorded Confirmed Type Albuterol Inhaler [Ventolin Hfa 1 - 2 puff INHALATION RT-Q6H PRN 09/27/18 12/03/18 History Inhaler] Ergocalciferol (Vitamin D2) 50,000 unit PO SA 10/22/18 12/03/18 History [Vitamin D2] Omeprazole 20 mg PO AC-BID 10/22/18 12/03/18 History Acetaminophen Tab [Tylenol] 1,000 mg PO Q8HR PRN 12/03/18 12/03/18 History Benzonatate [Tessalon Perles] 100 mg PO Q8HR PRN 12/03/18 12/03/18 History Budesonide/Formoterol Fumarate 2 puff INHALATION BID 12/03/18 12/03/18 History [Symbicort 160-4.5 Mcg Inhaler] Allergies Allergy/AdvReac Type Severity Reaction Status Date / Time No Known Allergies Allergy Verified 12/03/18 18:20 Physical Exam Vitals: Vital Signs Temp Pulse Pulse Pulse Resp BP BP 12/04/18 12:06 98.4 F 20 12/04/18 12:02 115/80 12/04/18 11:56 104 H 12/04/18 11:48 98 12/04/18 08:46 100 12/04/18 08:34 102 H 12/04/18 07:43 98.9 F 12/04/18 04:27 99.0 F 98 16 131/85 12/03/18 23:46 100 12/03/18 22:12 97.9 F 102 H 16 151/91 12/03/18 21:39 98.7 F 12/03/18 21:00 87 16 122/85 12/03/18 18:58 102.4 F H 12/03/18 18:50 116 H 20 122/85 12/03/18 18:45 122/85 12/03/18 18:44 18 12/03/18 18:04 100 F H 124 H 20 119/84 Pulse Ox 12/04/18 12:06 97 12/04/18 12:02 12/04/18 11:56 12/04/18 11:48 12/04/18 08:46 12/04/18 08:34 12/04/18 07:43 12/04/18 04:27 98 12/03/18 23:46 12/03/18 22:12 97 12/03/18 21:39 12/03/18 21:00 97 12/03/18 18:58 12/03/18 18:50 97 12/03/18 18:45 95 12/03/18 18:44 12/03/18 18:04 96 Intake and Output 12/03/18 12/04/18 12/04/18 22:59 06:59 14:59 Intake Total 2550 1250 Output Total 400 Balance 2550 850 Intake: Amount of Fluid Infused ( 2300 ml) Intake, IV Titration 1250 Amount Dextrose 5%-0.2% NaCl 1, 500 000 ml @ 125 mls/hr IV . Q8H [facility] Rx#:[id number] Levofloxacin 750Mg-D5w 150 Pmx 750 mg In Dextrose/ Water 1 150ml.bag @ 100 mls/hr IVPB Q24H [facility] Rx#: [id number] Piperacillin-Tazobactam 3 100 .375 gm In Sodium Chloride 0.9% 100 ml @ 25 mls/hr IVPB Q8HR [facility] Rx# :[id number] Sodium Chloride 0.9% 500 500 ml 500 ml @ 1000 mls/hr IV Q35M [facility] Rx#:[id number] Oral 250 Output: Urine 400 Other: Voiding Method Toilet Toilet # Voids 1 Weight 72.257 kg Gen: Alert and oriented, NAD Head: NCNT Neck: Supple Lungs: Diminished boibasilar, no increased respiratory effort Heart: RRR, S1s2 Abdomen: S/ND/NT Ext: No edema Neuro: No sensory or motor Deficits Results CBC & Chem 7: 12/03/18 18:50 12/03/18 18:50 Labs: Abnormal Lab Results - Last 24 Hours (Table) 12/03/18 12/03/18 Range/Units 18:50 18:50 RBC 3.41 L (4.30-5.90) m/uL Hgb 11.1 L (13.0-17.5) gm/dL Hct 33.3 L (39.0-53.0) % RDW 16.3 H (11.5-15.5) % Sodium 135 L (137-145) mmol/L BUN 8 L (9-20) mg/dL Creatinine 0.58 L (0.66-1.25) mg/dL Total Protein 6.0 L (6.3-8.2) g/dL Microbiology - Last 24 Hours (Table) 12/04/18 03:35 Urine Culture - Preliminary Urine,Voided Chest x-ray: report reviewed CT scan - chest: report reviewed Assessment and Plan Plan: Assessment and Recommendations: 1. Febrile while on chemotherapy - Continue Antibiotics: Feveres improved - Influenza Negative 2. 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
--- NOTE | 2018-12-05 19:05 | P.PN ---
Subjective Progress Note Date: 12/05/18 Principal diagnosis: Fever Afebrile improved today Objective - Vital Signs Vital signs: Vital Signs Temp 97.1 F L 12/05/18 12:13 Pulse 88 12/05/18 16:35 Resp 16 12/05/18 12:13 BP 105/75 12/05/18 12:13 Pulse Ox 98 12/05/18 16:21 Intake & Output 12/05/18 12/05/18 12/06/18 06:59 18:59 06:59 Intake Total 2029 1099 Balance 2029 1099 Intake: Intake, IV Titration 650 1100 Amount Dextrose 5%-0.2% NaCl 1, 500 1000 000 ml @ 125 mls/hr IV . Q8H [facility] Rx#:[id number] Levofloxacin 750Mg-D5w 150 Pmx 750 mg In Dextrose/ Water 1 150ml.bag @ 100 mls/hr IVPB Q24H [facility] Rx#: [id number] Piperacillin-Tazobactam 3 100 .375 gm In Sodium Chloride 0.9% 100 ml @ 25 mls/hr IVPB Q8HR [facility] Rx# :[id number] Oral 1380 Other: Voiding Method Toilet Toilet # Voids 2 - Exam Gen: Alert and oriented, NAD Head: NCNT Neck: Supple Lungs: Diminished boibasilar, no increased respiratory effort Heart: RRR, S1s2 Abdomen: S/ND/NT Ext: No edema Neuro: No sensory or motor Deficits - Labs CBC & Chem 7: 12/03/18 18:50 12/03/18 18:50 Labs: Microbiology - Last 24 Hours (Table) 12/04/18 03:35 Urine Culture - Final Urine,Voided 12/04/18 12:40 Gram Stain - Preliminary Sputum Sputum Culture - Preliminary 12/03/18 18:50 Blood Culture - Preliminary Blood No Growth after 24 hours Assessment and Plan Plan: Assessment and Recommendations: 1. Febrile while on chemotherapy - Continue Antibiotics: Feveres improved - Influenza Negative - Afebrile since admission, clearance from ID and to follow up in office after discharge 2. 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
[2018-12-05] MEDS ORDERED: LEVOFLOXACIN 750 MG TAB PO SCH (21:00)
[2018-12-06] MEDS: PANTOPRAZOLE 40 MG TABLET PO SCH (08:22)
[2018-12-06] MEDS: BENZONATATE 100 MG CAP PO SCH (08:22)
[2018-12-06] MEDS: SYMBICORT 160-4.5 MCG INHALER INHALATION SCH (08:47)
[2018-12-06] MEDS: IPRATROPIUM-ALBUTEROL 3 ML NEB INHALATION SCH ×2 (08:48→12:33)
[2018-12-06] MEDS: DEXTROSE 5%-0.2% NACL 1,000 ML IV SCH (10:37)
[2018-12-06] MEDS: PIPERACILLIN-TAZOBACTAM 3.375 GM in SODIUM CHLORIDE 0.9% 100 ML IVPB SCH (10:37)
[2018-12-06] MEDS: ACETAMINOPHEN TAB 500 MG TAB PO PRN (13:39)
[2018-12-06 14:55] VITALS: BP 112/78; PULSE 105; RESP 18; TEMP 97.7
--- NOTE | 2018-12-06 17:26 | PN ---
PROGRESS NOTE DATE OF SERVICE: 12/05/2018 CHIEF COMPLAINT: FUO. HISTORY OF PRESENT ILLNESS: This gentleman is doing well. All of his cultures have been negative. He has had no cough, shortness of breath, urinary complaints, etc. Exact cause of his fever is not clear. PHYSICAL EXAMINATION: Chest sounds fairly clear with very few rales and rhonchi. Cardiac exam is normal. Abdomen is soft, nontender. IMPRESSION: 1. Fever of unknown origin. 2. Carcinoma of the lung. 3. Possible subclinical bronchial pneumonia. PLAN: Continue current program and follow with Oncology. MMODL / IJN: [id number] /
--- NOTE | 2018-12-06 17:55 | DS ---
DISCHARGE SUMMARY CHIEF COMPLAINT: Fever. HISTORY OF PRESENT ILLNESS AND PHYSICAL EXAMINATION: Details of this man's history and physical can be found in the initial workup. LABORATORY STUDIES: While he was in the hospital he had laboratory studies, details of which can be found in the laboratory section of his chart. COURSE IN THE HOSPITAL: After admission he was placed on bedrest and cultures were obtained. They were all negative. Blood cultures negative. He was started on antibiotics empirically. Temperature stayed down. He had no problems with chest pain, shortness of breath, cough, hemoptysis, sputum production, abdominal pain, urinary complaints, etc. He was seen and followed by Oncology. They thought that his fever might have been related to his chemotherapy. He was doing well and was having no problems. It was felt that he could go home on December 06. He will be sent home on Levaquin 500 mg once a day and will be seen in the office in several days. FINAL DIAGNOSES: 1. Fever of unknown origin. 2. Possible subclinical bronchial pneumonia. 3. Carcinoma of the lung. OPERATIONS: None. CONSULTATIONS: Oncology. He is improved. MMODL / IJN: [id number] /
--- NOTE | 2018-12-06 21:31 | P.PN ---
Subjective Progress Note Date: 12/06/18 Principal diagnosis: Fever Afebrile improved today and anxious for discharge. THis is a late entry patient was seen earlier this am during his morning breathing treatment Objective - Vital Signs Vital signs: Vital Signs Temp 97.7 F 12/06/18 14:45 Pulse 105 H 12/06/18 14:45 Resp 18 12/06/18 14:45 BP 112/78 12/06/18 14:45 Pulse Ox 98 12/06/18 14:45 Intake & Output 12/06/18 12/06/18 12/07/18 06:59 18:59 06:59 Intake Total 3060 Balance 3060 Intake: Intake, IV Titration 1200 Amount Dextrose 5%-0.2% NaCl 1, 1100 000 ml @ 125 mls/hr IV . Q8H [facility] Rx#:[id number] Piperacillin-Tazobactam 3 100 .375 gm In Sodium Chloride 0.9% 100 ml @ 25 mls/hr IVPB Q8HR [facility] Rx# :[id number] Oral 1860 Other: Voiding Method Toilet Toilet # Voids 2 2 - Exam Gen: Alert and oriented, NAD Head: NCNT Neck: Supple Lungs: Diminished boibasilar, no increased respiratory effort Heart: RRR, S1s2 Abdomen: S/ND/NT Ext: No edema Neuro: No sensory or motor Deficits - Labs CBC & Chem 7: 12/03/18 18:50 12/03/18 18:50 Labs: Microbiology - Last 24 Hours (Table) 12/03/18 18:50 Blood Culture - Preliminary Blood No Growth after 72 hours 12/04/18 12:40 Gram Stain - Final Sputum Sputum Culture - Final Assessment and Plan Plan: Assessment and Recommendations: 1. Febrile while on chemotherapy - Continue Antibiotics: Feveres improved - Influenza Negative - Afebrile since admission, clearance from ID and to follow up in office after discharge 2. 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
== END 2018-12-06 13:50 | disposition home or self-care (01) | DRG 864 ==
LOC: EC 17:58 → 3NMEDONC 20:40
PROVIDERS: ADMIT Family Medicine; ATTEND Family Medicine
DX: R50.2 Drug induced fever (principal); J18.9 Pneumonia, unspecified organism; C34.90 Malignant neoplasm of unspecified part of unspecified bronchus or lung; C77.0 Secondary and unspecified malignant neoplasm of lymph nodes of head, face and neck; C79.31 Secondary malignant neoplasm of brain; J44.0 Chronic obstructive pulmonary disease with (acute) lower respiratory infection; T45.1X5A Adverse effect of antineoplastic and immunosuppressive drugs, initial encounter; H93.13 Tinnitus, bilateral; G25.1 Drug-induced tremor; Z79.51 Long term (current) use of inhaled steroids; Z87.891 Personal history of nicotine dependence; Z82.49 Family history of ischemic heart disease and other diseases of the circulatory system; Z83.3 Family history of diabetes mellitus; Z82.3 Family history of stroke; Z80.9 Family history of malignant neoplasm, unspecified
CPT/HCPCS: 36415; 71046; 80053; 81003; 83605; 85025; 85610; 85730; 87040; 87070; 87086; 87205; 87502; 93005; 94640; 94760; 96365; 96366; 99285

== ENCOUNTER → 2018-12-19 | Outpatient (CLI) | payer OTHER ==
--- NOTE | 2018-12-19 12:15 | MR ---
EXAMINATION TYPE: MR brain wo/w con DATE OF EXAM: 12/19/2018 COMPARISON: 10/06/2018 HISTORY: Lung cancer /Abnormal MRI TECHNIQUE: Multiplanar, multisequence images of the brain and brainstem is performed without and with IV contras t, utilizing 7 mL intravenous Gadavist . FINDINGS: Diffusion weighted images demonstrate no evidence of a recent infarct or other diffusion abnormality. There is no extra-axial fluid collection. There is moderate burden of nonspecific white matter espana ge demonstrated as scattered foci of T2/FLAIR hyperintensity similar to the prior of 10/06/2018. Again there are approximately 40 lesions present. The ventricular system and cisternal spaces are normal i n size and appearance. The brain volume is age appropriate. Midline structures demonstrate normal morphology. The craniocervical junction appears within normal limits. The previously seen extra-axial 1.3 cm right frontal mass has entirely resolved in the inter im. The rounded foci with peripheral enhancement at the skull vertex such as on postcontrast T1 axial fat sat image 76 are unchanged from the prior such as on the prior image 74 on the exam of 10/06/2018 representing arachnoid granulations. Post contrast images demonstrate no abnormal enhancement. The d ural venous sinuses appear patent. The visualized sinuses are clear and the globes are intact. IMPRESSION: 1. Complete resolution of the previously seen extra-axial 1.3 cm metastatic lesion. No new evidence o f intracranial metastasis. 2. Stable moderate burden nonspecific white matter change, likely on the basis of chronic microangiop athy.
== END | disposition home or self-care (01) ==
LOC: RADMRIMAIN 10:39
PROVIDERS: ATTEND Internal Medicine Hematology & Oncology
DX: C34.92 Malignant neoplasm of unspecified part of left bronchus or lung (principal); R90.89 Other abnormal findings on diagnostic imaging of central nervous system
CPT/HCPCS: 70553; A9585

== ENCOUNTER 2019-01-14 03:53 | Observation (INO) | payer OTHER ==
[2019-01-14] MEDS ORDERED: IBUPROFEN IV 600 MG in SODIUM CHLORIDE 0.9% 250 ML IV STA (04:48)
--- NOTE | 2019-01-14 04:48 | ED ---
Fever HPI - General Chief Complaint: Fever Stated Complaint: Fever/Cough Time Seen by Provider: 01/14/19 04:47 Source: patient Mode of arrival: ambulatory Limitations: no limitations - History of Present Illness Initial Comments: Darrick is a pleasant 58 male with a history of small cell lung cancer for which she is currently undergoing chemotherapy. Patient presents to the emergency department today for evaluation of fever. Patient does report that he's had some subjective fever and chills at home he checked his fever noted that it was 103.5 at home. He also reports he has had a cough and body aches. Patient reports he did receive his flu vaccine in September of this year. Patient denies any chest pain or worsening shortness of breath. - Related Data Home Medications Medication Instructions Recorded Confirmed Albuterol Inhaler [Ventolin Hfa 1 - 2 puff INHALATION RT-Q6H PRN 09/27/18 01/14/19 Inhaler] Ergocalciferol (Vitamin D2) 50,000 unit PO SA 10/22/18 01/14/19 [Vitamin D2] Omeprazole 20 mg PO AC-BID 10/22/18 01/14/19 Acetaminophen Tab [Tylenol] 1,000 mg PO Q8HR PRN 12/03/18 01/14/19 Benzonatate [Tessalon Perles] 100 mg PO Q8HR PRN 12/03/18 01/14/19 Budesonide/Formoterol Fumarate 2 puff INHALATION BID 12/03/18 01/14/19 [Symbicort 160-4.5 Mcg Inhaler] Allergies Allergy/AdvReac Type Severity Reaction Status Date / Time No Known Allergies Allergy Verified 12/03/18 18:20 Review of Systems ROS Statement: Those systems with pertinent positive or pertinent negative responses have been documented in the HPI. ROS Other: All systems not noted in ROS Statement are negative. Past Medical History Past Medical History: Cancer, COPD Additional Past Medical History / Comment(s): pilonidal cyst, I&D of cyst on buttocks in January 2018, required IV antibiotics and hospitalization. Recent diagnosis of aug 2017 lung cancer, with mets to lymph node in neck and brain. currently receiving chemotherapy infusions. last chemo was on January 01, tremors in hands post chemo right hand is worse than left, ringing in ears post chemo History of Any Multi-Drug Resistant Organisms: None Reported Additional Past Surgical History / Comment(s): hemmorhoid surgery, fistula repair,facial reconstructions approx 25yrs Past Anesthesia/Blood Transfusion Reactions: No Reported Reaction Past Psychological History: No Psychological Hx Reported Smoking Status: Former smoker Past Alcohol Use History: Daily Past Drug Use History: None Reported - Past Family History Father Family Medical History: CVA/TIA, Diabetes Mellitus Mother Family Medical History: Cancer Brother(s) Family Medical History: Myocardial Infarction ([place]) General Exam - General Exam Comments Initial Comments: Physical Exam GENERAL: Chemotherapy patient HENT: Normocephalic, Atraumatic. EYES: PERRL, EOMI PULMONARY: Crackles at bases CARDIOVASCULAR: Tachycardic, regular, warm and well perfused extremities ABDOMEN: Soft and nontender with normal bowel sounds. SKIN: Warm to the touch : Deferred NEUROLOGIC: Patient is alert and oriented x3. Moving all extremities spontaneously MUSCULOSKELETAL: Normal extremities with adequate strength and full range of motion. No lower extremity swelling or edema. No calf tenderness. PSYCHIATRIC: Normal psychiatric evaluation. Limitations: no limitations Limitations: no limitations Course Vital Signs 01/14/19 01/14/19 04:38 06:28 Temperature 100.5 F H 101.4 F H Pulse Rate 145 H 115 H Respiratory 20 18 Rate Blood Pressure 103/67 117/76 O2 Sat by Pulse 96 95 Oximetry Medical Decision Making - Medical Decision Making Patient was seen and evaluated history was obtained from the patient and review of medical record This is a 58-year-old male currently undergoing chemotherapy for lung cancer who presents for fever and cough Sepsis workup was initiated Chest x-ray is concerning for pneumonia No leukocytosis and lactic acidosis patient's heart rate improving with IV fluids Given the patient's medical history and the fact that he is on chemotherapy I will plan to admit him for pneumonia. Patient care was discussed with Dr. Steen who accepts the admission. - Lab Data Result diagrams: 01/14/19 05:05 01/14/19 05:05 Lab Results 01/14/19 01/14/19 01/14/19 Range/Units 05:05 05:05 05:05 WBC 8.9 (3.8-10.6) k/uL RBC 2.92 L (4.30-5.90) m/uL Hgb 9.6 L D (13.0-17.5) gm/dL Hct 28.8 L (39.0-53.0) % MCV 98.5 (80.0-100.0) fL MCH 32.9 (25.0-35.0) pg MCHC 33.4 (31.0-37.0) g/dL RDW 16.9 H (11.5-15.5) % Plt Count 153 (150-450) k/uL Neutrophils % 86 % Lymphocytes % 8 % Monocytes % 3 % Eosinophils % 0 % Basophils % 0 % Neutrophils # 7.6 (1.3-7.7) k/uL Lymphocytes # 0.7 L (1.0-4.8) k/uL Monocytes # 0.3 (0-1.0) k/uL Eosinophils # 0.0 (0-0.7) k/uL Basophils # 0.0 (0-0.2) k/uL Anisocytosis Slight Macrocytosis Slight PT (9.0-12.0) sec INR (<1.2) APTT (22.0-30.0) sec Sodium 132 L (137-145) mmol/L Potassium 3.9 (3.5-5.1) mmol/L Chloride 96 L (98-107) mmol/L Carbon Dioxide 27 (22-30) mmol/L Anion Gap 9 mmol/L BUN 13 (9-20) mg/dL Creatinine 0.71 (0.66-1.25) mg/dL Est GFR (CKD-EPI)AfAm >90 (>60 ml/min/1.73 sqM) Est GFR (CKD-EPI)NonAf >90 (>60 ml/min/1.73 sqM) Glucose 130 H (74-99) mg/dL Plasma Lactic Acid Hardeep 1.7 (0.7-2.0) mmol/L Calcium 8.5 (8.4-10.2) mg/dL Total Bilirubin 0.5 (0.2-1.3) mg/dL AST 16 L (17-59) U/L ALT 23 (21-72) U/L Alkaline Phosphatase 88 (38-126) U/L Creatine Kinase 27 L (55-170) U/L Troponin I (0.000-0.034) ng/mL Total Protein 6.1 L (6.3-8.2) g/dL Albumin 3.6 (3.5-5.0) g/dL Urine Color Urine Appearance (Clear) Urine pH (5.0-8.0) Ur Specific [place] (1.001-1.035) Urine Protein (Negative) Urine Glucose (UA) (Negative) Urine Ketones (Negative) Urine Blood (Negative) Urine Nitrite (Negative) Urine Bilirubin (Negative) Urine Urobilinogen (<2.0) mg/dL Ur Leukocyte Esterase (Negative) Urine RBC (0-5) /hpf Urine WBC (0-5) /hpf Ur Squamous Epith Cells (0-4) /hpf Urine Bacteria (None) /hpf Hyaline Casts (0-2) /lpf Urine Mucus (None) /hpf Influenza Type A RNA (Not Detectd) Influenza Type B (PCR) (Not Detectd) 01/14/19 01/14/19 01/14/19 Range/Units 05:05 05:05 05:34 WBC (3.8-10.6) k/uL RBC (4.30-5.90) m/uL Hgb (13.0-17.5) gm/dL Hct (39.0-53.0) % MCV (80.0-100.0) fL MCH (25.0-35.0) pg MCHC (31.0-37.0) g/dL RDW (11.5-15.5) % Plt Count (150-450) k/uL Neutrophils % % Lymphocytes % % Monocytes % % Eosinophils % % Basophils % % Neutrophils # (1.3-7.7) k/uL Lymphocytes # (1.0-4.8) k/uL Monocytes # (0-1.0) k/uL Eosinophils # (0-0.7) k/uL Basophils # (0-0.2) k/uL Anisocytosis Macrocytosis PT 9.9 (9.0-12.0) sec INR 0.9 (<1.2) APTT 26.8 (22.0-30.0) sec Sodium (137-145) mmol/L Potassium (3.5-5.1) mmol/L Chloride (98-107) mmol/L Carbon Dioxide (22-30) mmol/L Anion Gap mmol/L BUN (9-20) mg/dL Creatinine (0.66-1.25) mg/dL Est GFR (CKD-EPI)AfAm (>60 ml/min/1.73 sqM) Est GFR (CKD-EPI)NonAf (>60 ml/min/1.73 sqM) Glucose (74-99) mg/dL Plasma Lactic Acid Hardeep (0.7-2.0) mmol/L Calcium (8.4-10.2) mg/dL Total Bilirubin (0.2-1.3) mg/dL AST (17-59) U/L ALT (21-72) U/L Alkaline Phosphatase (38-126) U/L Creatine Kinase (55-170) U/L Troponin I <0.012 (0.000-0.034) ng/mL Total Protein (6.3-8.2) g/dL Albumin (3.5-5.0) g/dL Urine Color Urine Appearance (Clear) Urine pH (5.0-8.0) Ur Specific [place] (1.001-1.035) Urine Protein (Negative) Urine Glucose (UA) (Negative) Urine Ketones (Negative) Urine Blood (Negative) Urine Nitrite (Negative) Urine Bilirubin (Negative) Urine Urobilinogen (<2.0) mg/dL Ur Leukocyte Esterase (Negative) Urine RBC (0-5) /hpf Urine WBC (0-5) /hpf Ur Squamous Epith Cells (0-4) /hpf Urine Bacteria (None) /hpf Hyaline Casts (0-2) /lpf Urine Mucus (None) /hpf Influenza Type A RNA Not Detected (Not Detectd) Influenza Type B (PCR) Not Detected (Not Detectd) 01/14/19 Range/Units 05:56 WBC (3.8-10.6) k/uL RBC (4.30-5.90) m/uL Hgb (13.0-17.5) gm/dL Hct (39.0-53.0) % MCV (80.0-100.0) fL MCH (25.0-35.0) pg MCHC (31.0-37.0) g/dL RDW (11.5-15.5) % Plt Count (150-450) k/uL Neutrophils % % Lymphocytes % % Monocytes % % Eosinophils % % Basophils % % Neutrophils # (1.3-7.7) k/uL Lymphocytes # (1.0-4.8) k/uL Monocytes # (0-1.0) k/uL Eosinophils # (0-0.7) k/uL Basophils # (0-0.2) k/uL Anisocytosis Macrocytosis PT (9.0-12.0) sec INR (<1.2) APTT (22.0-30.0) sec Sodium (137-145) mmol/L Potassium (3.5-5.1) mmol/L Chloride (98-107) mmol/L Carbon Dioxide (22-30) mmol/L Anion Gap mmol/L BUN (9-20) mg/dL Creatinine (0.66-1.25) mg/dL Est GFR (CKD-EPI)AfAm (>60 ml/min/1.73 sqM) Est GFR (CKD-EPI)NonAf (>60 ml/min/1.73 sqM) Glucose (74-99) mg/dL Plasma Lactic Acid Hardeep (0.7-2.0) mmol/L Calcium (8.4-10.2) mg/dL Total Bilirubin (0.2-1.3) mg/dL AST (17-59) U/L ALT (21-72) U/L Alkaline Phosphatase (38-126) U/L Creatine Kinase (55-170) U/L Troponin I (0.000-0.034) ng/mL Total Protein (6.3-8.2) g/dL Albumin (3.5-5.0) g/dL Urine Color Yellow Urine Appearance Clear (Clear) Urine pH 6.0 (5.0-8.0) Ur Specific [place] 1.016 (1.001-1.035) Urine Protein Trace H (Negative) Urine Glucose (UA) Negative (Negative) Urine Ketones Negative (Negative) Urine Blood Trace H (Negative) Urine Nitrite Negative (Negative) Urine Bilirubin Negative (Negative) Urine Urobilinogen <2.0 (<2.0) mg/dL Ur Leukocyte Esterase Negative (Negative) Urine RBC 2 (0-5) /hpf Urine WBC 2 (0-5) /hpf Ur Squamous Epith Cells <1 (0-4) /hpf Urine Bacteria Rare H (None) /hpf Hyaline Casts 1 (0-2) /lpf Urine Mucus Rare H (None) /hpf Influenza Type A RNA (Not Detectd) Influenza Type B (PCR) (Not Detectd) Disposition Clinical Impression: Community acquired pneumonia Disposition: ADMITTED IP TO THIS HOSP Condition: Stable Is patient prescribed a controlled substance at d/c from ED?: No Referrals: Dionicio Altamirano MD [Primary Care Provider] - 1-2 days
[2019-01-14] MEDS ORDERED: IBUPROFEN 600 MG TAB PO STA ×2 (05:27→05:29)
[2019-01-14] MEDS: SODIUM CHLORIDE 0.9% 500 ML 500 ML IV SCH ×2 (05:35→05:36)
[2019-01-14 05:38] LABS: ALT 23 U/L (21-72); AST 16 U/L (17-59); Albumin 3.6 g/dL (3.5-5.0); Alkaline Phosphatase 88 U/L (38-126); Anion Gap 9 mmol/L; Blood Urea Nitrogen 13 mg/dL (9-20); Calcium 8.5 mg/dL (8.4-10.2); Carbon Dioxide 27 mmol/L (22-30); Chloride 96 mmol/L (98-107); Creatine Kinase 27 U/L (55-170); Glucose 130 mg/dL (74-99); Potassium 3.9 mmol/L (3.5-5.1); Sodium 132 mmol/L (137-145); Total Bilirubin 0.5 mg/dL (0.2-1.3); Total Protein 6.1 g/dL (6.3-8.2)
[2019-01-14 05:51] LABS: Anisocytosis Slight; Basophils % (A) 0 %; Eosinophils % (A) 0 %; HCT 28.8 % (39.0-53.0); Lymphocytes # (A) 0.7 k/uL (1.0-4.8); Lymphocytes % (A) 8 %; MCH 32.9 pg (25.0-35.0); MCHC 33.4 g/dL (31.0-37.0); MCV 98.5 fL (80.0-100.0); Macrocytosis Slight; Mean Platelet Volume 7.9; Monocytes # (A) 0.3 k/uL (0-1.0); Monocytes % (A) 3 %; Neutrophils # (A) 7.6 k/uL (1.3-7.7); Neutrophils % (A) 86 %; Platelet Count 153 k/uL (150-450); RBC 2.92 m/uL (4.30-5.90); RDW 16.9 % (11.5-15.5); WBC 8.9 k/uL (3.8-10.6)
[2019-01-14 05:54] LABS: INR 0.9 (<1.2); Partial Thromboplastin Time 26.8 sec (22.0-30.0); Prothrombin Time 9.9 sec (9.0-12.0)
--- NOTE | 2019-01-14 05:54 | XR ---
EXAM: XR Chest, 2 Views CLINICAL HISTORY: ITS.REASON XR Reason: Fever TECHNIQUE: Frontal and lateral views of the chest. COMPARISON: 12/04/18. FINDINGS: Lungs: Patchy infiltrates most prominent at the left lung base. Pleural space: No significant pleural effusion or pneumothorax. Heart: Stable cardiomediastinal silhouette. Mediastinum: See above. Bones/joints: No acute fracture. IMPRESSION: Patchy infiltrates most prominent at the left lung base. Correlate clinically for pneumonia.
[2019-01-14 06:18] LABS: Appearance,Urine Clear (Clear); Bacteria,Urine Rare /hpf; Bilirubin,Urine Negative (Negative); Blood,Urine Trace (Negative); Color,Urine Yellow; Glucose,Urine (UA) Negative (Negative); Hyaline Casts,Urine 1 /lpf (0-2); Ketones,Urine Negative (Negative); Leukocyte Esterase,Urine Negative (Negative); Mucus,Urine Rare /hpf; Nitrite,Urine Negative (Negative); Protein,Urine Trace (Negative); RBC,Urine 2 /hpf (0-5); Specific Gravity,Urine 1.016 (1.001-1.035); Squamous Epithelial Cell,Urine <1 /hpf (0-4); Urobilinogen,Urine <2.0 mg/dL (<2.0); WBC,Urine 2 /hpf (0-5)
[2019-01-14 06:20] LABS: HGB 9.6 gm/dL (13.0-17.5)
[2019-01-14] MEDS ORDERED: AZITHROMYCIN 500 MG in SODIUM CHLORIDE 0.9% 250 ML IVPB STA (06:23)
[2019-01-14] MEDS ORDERED: cefTRIAXone IN SWFI 1,000 MG/10 ML SYRINGE IVP STA (06:23)
[2019-01-14] MEDS ORDERED: PNEUMONIA PROTOCOL UTILIZED 1 EACH MISC PO PRN (06:29)
[2019-01-14] MEDS ORDERED: ACETAMINOPHEN TAB 500 MG TAB PO STA (07:17)
[2019-01-14] MEDS ORDERED: ALBUTEROL INHALER 60 PUFF/8 GM INHALER INHALATION PRN (07:59)
[2019-01-14] MEDS ORDERED: ACETAMINOPHEN TAB 500 MG TAB PO PRN (07:59)
[2019-01-14] MEDS: IBUPROFEN 800 MG TAB PO PRN (14:47)
[2019-01-14] MEDS: BENZONATATE 100 MG CAP PO PRN (15:11)
[2019-01-14] MEDS: IPRATROPIUM-ALBUTEROL 3 ML NEB INHALATION PRN ×2 (16:18→19:49)
[2019-01-14] MEDS: PANTOPRAZOLE 40 MG TABLET PO SCH (16:41)
[2019-01-14] MEDS: SYMBICORT 160-4.5 MCG INHALER INHALATION SCH (19:49)
[2019-01-15] MEDS: AZITHROMYCIN 500 MG in SODIUM CHLORIDE 0.9% 250 ML IVPB SCH (05:58)
[2019-01-15] MEDS: IBUPROFEN 800 MG TAB PO PRN ×2 (06:04→16:35)
[2019-01-15] MEDS: PANTOPRAZOLE 40 MG TABLET PO SCH ×2 (07:19→16:35)
[2019-01-15] MEDS: BENZONATATE 100 MG CAP PO PRN ×2 (07:29→16:36)
[2019-01-15] MEDS: SYMBICORT 160-4.5 MCG INHALER INHALATION SCH ×2 (07:50→21:10)
[2019-01-15] MEDS: IPRATROPIUM-ALBUTEROL 3 ML NEB INHALATION PRN ×2 (07:50→11:12)
[2019-01-15 12:02] LABS: Anisocytosis Slight; Basophils % (A) 0 %; Eosinophils % (A) 0 %; HCT 24.9 % (39.0-53.0); HGB 8.2 gm/dL (13.0-17.5); Hypochromasia Slight; Lymphocytes # (A) 1.4 k/uL (1.0-4.8); Lymphocytes % (A) 17 %; MCH 33.3 pg (25.0-35.0); MCHC 32.7 g/dL (31.0-37.0); MCV 101.8 fL (80.0-100.0); Macrocytosis Slight; Mean Platelet Volume 7.3; Monocytes # (A) 0.3 k/uL (0-1.0); Monocytes % (A) 4 %; Neutrophils # (A) 6.2 k/uL (1.3-7.7); Neutrophils % (A) 76 %; Platelet Count 177 k/uL (150-450); RBC 2.45 m/uL (4.30-5.90); RDW 16.4 % (11.5-15.5); WBC 8.1 k/uL (3.8-10.6)
[2019-01-15 12:16] LABS: ALT 28 U/L (21-72); AST 15 U/L (17-59); Albumin 2.8 g/dL (3.5-5.0); Alkaline Phosphatase 82 U/L (38-126); Anion Gap 5 mmol/L; Blood Urea Nitrogen 10 mg/dL (9-20); Calcium 8.2 mg/dL (8.4-10.2); Carbon Dioxide 29 mmol/L (22-30); Chloride 102 mmol/L (98-107); Glucose 78 mg/dL (74-99); Potassium 3.6 mmol/L (3.5-5.1); Sodium 136 mmol/L (137-145); Total Bilirubin 0.2 mg/dL (0.2-1.3); Total Protein 5.1 g/dL (6.3-8.2)
--- NOTE | 2019-01-15 12:36 | P.CONS ---
History of Present Illness - Reason for Consult Consult date: 01/15/19 Metastatic Lung Cancer - Brain on chemo Requesting physician: Dionicio Altamirano - Chief Complaint Fever - History of Present Illness Darrick is a 58 year old male patient of Dr. 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 His last treatment was 01/01/19-01/03/19, Neulasta on 01/04/19. This was cycle 5 of 6. He had MRI of the Brain in October of this year which revealed small intracranial lesion, c/w brain metastasis, he seen radiation oncology at that time and it was felt that continuation of current chemotherapy and close monitoring was agreed apodecember Follow-eup MRI lesion resolved. He now presented to emergency with increased weakness, Pain in lower extremities (no new), increasing Shortness of breath, cough and fevers. Jasmine cultures were performed, chest xray completed and revealed potential left lung base pneumonia, antibiotics have been initiated and he has remained afebrile since. Review of Systems A 14 point review of systems assessed and completed and all negative except HPI. Past Medical History Past Medical History: Cancer, COPD Additional Past Medical History / Comment(s): pilonidal cyst, I&D of cyst on buttocks in January 2018, required IV antibiotics and hospitalization. Recent diagno sis of aug 2017 lung cancer, with mets to lymph node in neck and brain. currently receiving chemotherapy infusions. last chemo was on January 01, tremors in hands post chemo right hand is worse than left, ringing in ears post chemo History of Any Multi-Drug Resistant Organisms: None Reported Additional Past Surgical History / Comment(s): hemmorhoid surgery, fistula repair,facial reconstructions approx 25yrs Past Anesthesia/Blood Transfusion Reactions: No Reported Reaction Past Psychological History: No Psychological Hx Reported Smoking Status: Former smoker Past Alcohol Use History: Daily Additional Past Alcohol Use History / Comment(s): drinks 4-8 beers per day Past Drug Use History: None Reported - Past Family History Father Family Medical History: CVA/TIA, Diabetes Mellitus Mother Family Medical History: Cancer Brother(s) Family Medical History: Myocardial Infarction ([place]) Medications and Allergies Home Medications Medication Instructions Recorded Confirmed Type Albuterol Inhaler [Ventolin Hfa 1 - 2 puff INHALATION RT-Q6H PRN 09/27/18 01/14/19 History Inhaler] Ergocalciferol (Vitamin D2) 50,000 unit PO SA 10/22/18 01/14/19 History [Vitamin D2] Omeprazole 20 mg PO AC-BID 10/22/18 01/14/19 History Acetaminophen Tab [Tylenol] 1,000 mg PO Q8HR PRN 12/03/18 01/14/19 History Benzonatate [Tessalon Perles] 100 mg PO Q8HR PRN 12/03/18 01/14/19 History Budesonide/Formoterol Fumarate 2 puff INHALATION BID 12/03/18 01/14/19 History [Symbicort 160-4.5 Mcg Inhaler] Ibuprofen 800 mg PO BID PRN 01/14/19 01/14/19 History Allergies Allergy/AdvReac Type Severity Reaction Status Date / Time No Known Allergies Allergy Verified 01/14/19 07:17 Physical Exam Vitals: Vital Signs Temp Pulse Pulse Resp BP BP Pulse Ox 01/15/19 11:42 97.9 F 98 16 137/60 97 01/15/19 11:25 96 01/15/19 11:15 96 01/15/19 08:07 100 01/15/19 07:51 100 01/15/19 05:00 98.5 F 103 H 16 120/80 97 01/14/19 21:00 98 F 94 16 103/70 97 01/14/19 20:01 96 01/14/19 19:52 94 01/14/19 16:28 99 01/14/19 16:20 96 01/14/19 15:21 16 Intake and Output 01/14/19 01/15/19 01/15/19 22:59 06:59 14:59 Intake Total 100 1230 Balance 100 1230 Intake: Intake, IV Titration 50 Amount cefTRIAXone 1 gm In 50 Sodium Chloride 0.9% 50 ml @ 100 mls/hr IVPB Q24HR [facility] Rx#:[id number] Oral 100 1180 Other: Voiding Method Toilet Toilet # Voids 1 3 Gen: Alert and Oriented, NAD Head NC, NT Neck: Supple, No palpable adenopathy Heart: Tachy, Reg Lungs: Expiratory wheezes, L>R, diminished bilateral bases Abdomen: Soft, ND, NT Extremities: Weak, no edema, bilateral strength is equal Neuro: No sensory or motor deficits noted. Results CBC & Chem 7: 01/15/19 11:10 01/15/19 11:10 Labs: Abnormal Lab Results - Last 24 Hours (Table) 01/15/19 01/15/19 Range/Units 11:10 11:10 RBC 2.45 L (4.30-5.90) m/uL Hgb 8.2 L (13.0-17.5) gm/dL Hct 24.9 L (39.0-53.0) % MCV 101.8 H (80.0-100.0) fL RDW 16.4 H (11.5-15.5) % Sodium 136 L (137-145) mmol/L Calcium 8.2 L (8.4-10.2) mg/dL AST 15 L (17-59) U/L Total Protein 5.1 L (6.3-8.2) g/dL Albumin 2.8 L (3.5-5.0) g/dL Microbiology - Last 24 Hours (Table) 01/14/19 05:56 Urine Culture - Final Urine,Voided 01/14/19 05:05 Blood Culture - Preliminary Blood No Growth after 24 hours 01/14/19 16:30 Gram Stain - Preliminary Sputum Chest x-ray: report reviewed Assessment and Plan (1) Metastatic cancer to brain Current Visit: Yes Status: Acute Code(s): C79.31 - SECONDARY MALIGNANT N EOPLASM OF BRAIN SNOMED Code(s): 66632244 (2) Community acquired pneumonia Current Visit: Yes Status: Acute Code(s): J18.9 - PNEUMONIA, UNSPECIFIED ORGANISM SNOMED Code(s): 278246840 (3) COPD (chronic obstructive pulmonary disease) Current Visit: No Status: Acute Code(s): J44.9 - CHRONIC OBSTRUCTIVE PULMONARY DISEASE, UNSPECIFIED SNOMED Code(s): 57177438 (4) Small cell lung cancer Current Visit: No Status: Acute Priority: High Code(s): C34.90 - MALIGNANT NEOPLASM OF UNSP PART OF UNSP BRONCHUS OR LUNG SNOMED Code(s): 601646483 (5) Antineoplastic chemotherapy induced anemia Current Visit: No Status: Resolved Priority: Medium Code(s): D64.81 - A NEMIA DUE TO ANTINEOPLASTIC CHEMOTHERAPY; T45.1X5A - ADVERSE EFFECT OF ANTINEOPLASTIC AND IMMUNOSUP DRUGS, INIT SNOMED Code(s): 872552696 Plan: Assessment and Recommendations: Extensive Stage Small Cell Lung cancer: - Status Post Cycle 5/6 of chemotherapy with Cisplatin and 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, 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 (01/01/19-01/04/19) - chrmotherapy on hold until acute issue and complaints are improved/resolved Normocytic Anemia: - Secondary to chemotherapy - Monitor CBC and Transfuse with hemoglobin less than 7 - No intervention required today, hemoglobin is stable Fever on Chemotherapy: - Likely seconday to pneumonia Left Lower Lung - Pulmonary is Following - Antibiotics are ordered and patient has remained afebrile since admission ALISSA Castellanos Physician Attest: I have completed the full history and physical of this patient and agree with above dictation by Tata Candelaria NP Dictated as a scribe.
--- NOTE | 2019-01-15 17:10 | HP ---
HISTORY AND PHYSICAL CHIEF COMPLAINT: Fever, chills and shortness of breath. HISTORY OF PRESENT ILLNESS: This is another admission for this 58-year-old white male who is being treated for carcinoma of the lung. He had been doing well since being out of the hospital until a week or so ago. He suddenly developed chills, fever and a temperature of over 103, and he came to the emergency room. It was felt that he likely had an exacerbation of his pneumonitis surrounding his lung mass. White count was adequate. REVIEW OF SYSTEMS: He has had no headaches, confusion, cough, hemoptysis, chest pain, heart disease, abdominal pain, vomiting, etc. Past medical history, family history, and personal and social histories are all unchanged from his recent admitting and discharge summaries. PHYSICAL EXAMINATION: Blood pressure is 115/68 with a pulse of 100, respirations of 35 and temperature of 102. In general he appeared to be well developed, well nourished, in no acute distress. Skin color was normal. Skin was hot and dry. Lymph nodes not enlarged. Head, ears, eyes, nose, mouth and throat were normal. Neck veins not distended. Thyroid not enlarged. Chest demonstrated decreased breath sounds throughout with occasional rales and rhonchi on both sides. Cardiac exam demonstrated sinus tachycardia. Abdomen soft and nontender without any visceromegaly or masses. Bowel sounds present. Extremities normal. Neurologically intact. IMPRESSION: 1. Bronchial pneumonia. 2. Carcinoma of the lung. PLAN: 1. Bed rest. 2. IV fluids. 3. IV antibiotics. 4. Updrafts. 5. Consult Oncology. MMODL / IJN: [id number] /
--- NOTE | 2019-01-15 17:16 | PN ---
PROGRESS NOTE DATE OF SERVICE: 01/15/2019 CHIEF COMPLAINT: Pneumonitis. HISTORY OF PRESENT ILLNESS: This gentleman feels fine. He denies any shortness of breath or chest pain. His temperature was down last night. PHYSICAL EXAMINATION: Breath sounds are diminished. There is no particular abnormal finding. Cardiac exam is normal and the abdomen is soft. IMPRESSION: 1. Pneumonitis. 2. Carcinoma of the lung. PLAN: Continue with updrafts, IV fluids and antibiotics. MMODL / IJN: [id number] /
[2019-01-16 05:15] VITALS: RESP 16
[2019-01-16] MEDS: AZITHROMYCIN 500 MG in SODIUM CHLORIDE 0.9% 250 ML IVPB SCH (05:59)
[2019-01-16] MEDS: IBUPROFEN 800 MG TAB PO PRN (05:59)
[2019-01-16] MEDS: BENZONATATE 100 MG CAP PO PRN (06:12)
[2019-01-16] MEDS: SYMBICORT 160-4.5 MCG INHALER INHALATION SCH (08:24)
[2019-01-16] MEDS: PANTOPRAZOLE 40 MG TABLET PO SCH (08:25)
--- NOTE | 2019-01-16 11:44 | P.PN ---
Subjective Progress Note Date: 01/16/19 Principal diagnosis: Pneumonia Patient continues to improve, No acute events overnight Objective - Vital Signs Vital signs: Vital Signs Temp 98.5 F 01/16/19 05:00 Pulse 97 01/16/19 05:00 Resp 16 01/16/19 05:00 BP 136/82 01/16/19 05:00 Pulse Ox 95 01/16/19 05:00 Intake & Output 01/15/19 01/16/19 01/16/19 18:59 06:59 18:59 Intake Total 1230 1270 Balance 1230 1270 Intake: Intake, IV Titration 50 250 Amount Azithromycin 500 mg In 250 Sodium Chloride 0.9% 250 ml @ 250 mls/hr IVPB Q24H [facility] Rx#:[id number] cefTRIAXone 1 gm In 50 Sodium Chloride 0.9% 50 ml @ 100 mls/hr IVPB Q24HR [facility] Rx#:[id number] Oral 1180 1020 Other: Voiding Method Toilet Toilet Toilet # Voids 3 3 - Exam Gen: Alert and Oriented, NAD Head NC, NT Neck: Supple, No palpable adenopathy Heart: Tachy, Reg Lungs: Expiratory wheezes, L>R, diminished bilateral bases Abdomen: Soft, ND, NT Extremities: Weak, no edema, bilateral strength is equal Neuro: No sensory or motor deficits noted. - Labs CBC & Chem 7: 01/15/19 11:10 01/15/19 11:10 Labs: Abnormal Lab Results - Last 24 Hours (Table) 01/15/19 01/15/19 Range/Units 11:10 11:10 RBC 2.45 L (4.30-5.90) m/uL Hgb 8.2 L (13.0-17.5) gm/dL Hct 24.9 L (39.0-53.0) % MCV 101.8 H (80.0-100.0) fL RDW 16.4 H (11.5-15.5) % Sodium 136 L (137-145) mmol/L Calcium 8.2 L (8.4-10.2) mg/dL AST 15 L (17-59) U/L Total Protein 5.1 L (6.3-8.2) g/dL Albumin 2.8 L (3.5-5.0) g/dL Microbiology - Last 24 Hours (Table) 01/14/19 16:30 Gram Stain - Final Sputum Sputum Culture - Final 01/14/19 05:05 Blood Culture - Preliminary Blood No Growth after 48 hours 01/14/19 05:56 Urine Culture - Final Urine,Voided Assessment and Plan (1) Metastatic cancer to brain Current Visit: Yes Status: Acute Code(s): C79.31 - SECONDARY MALIGNANT NEOPLASM OF BRAIN SNOMED Code(s): 29357113 (2) Community acquired pneumonia Current Visit: Yes Status: Acute Code(s): J18.9 - PNEUMONIA, UNSPECIFIED ORGANISM SNOMED Code(s): 979950131 (3) COPD (chronic obstructive pulmonary disease) Current Visit: No Status: Acute Code(s): J44.9 - CHRONIC OBSTRUCTIVE PULMONARY DISEASE, UNSPECIFIED SNOMED Code(s): 47243182 (4) Small cell lung cancer Current Visit: No Status: Acute Priority: High Code(s): C34.90 - MALIGNANT NEOPLASM OF UNSP PART OF UNSP BRONCHUS OR LUNG SNOMED Code(s): 420271085 (5) Antineoplastic chemotherapy induced anemia Current Visit: No Status: Resolved Priority: Medium Code(s): D64.81 - ANEMIA DUE TO ANTINEOPLASTIC CHEMOTHERAPY; T45.1X5A - ADVERSE EFFECT OF ANTINEOPLASTIC AND IMMUNOSUP DRUGS, INIT SNOMED Code(s): 606660135 Plan: Assessment and Recommendations: Extensive Stage Small Cell Lung cancer: - Status Post Cycle 5/6 of chemotherapy with Cisplatin and [employer]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, 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 (01/01/19-01/04/19) - chemotherapy on hold until acute issue and complaints are improved/resolved Normocytic Anemia: - Secondary to chemotherapy - Monitor CBC and Transfuse with hemoglobin less than 7 - No intervention required today, hemoglobin is stable Fever on Chemotherapy: - Likely secondary to pneumonia Left Lower Lung - Pulmonary is Following - Antibiotics are ordered and patient has remained afebrile since admission Plan: - Ok for discharge from Oncology Stand point and follow-up prior to next chemotherapy to ensure resolution of acute infection and recivery of counts prior to last cycle of chemo ALISSA Castellanos Physician Attest: I have completed the full history and physical of this patient and agree with above dictation by Tata Candelaria NP Dictated as a scribe.
[2019-01-16 12:15] VITALS: BP 147/90; PULSE 84; TEMP 98.2
[2019-01-16] MEDS ORDERED: CEPHALEXIN 500 MG CAP PO SCH (13:00)
--- NOTE | 2019-01-16 18:18 | DS ---
DISCHARGE SUMMARY CHIEF COMPLAINT: Fever, chills, and pneumonitis. HISTORY OF PRESENT ILLNESS AND PHYSICAL EXAM: Details of this man's history and physical can be found in the initial workup. LABORATORY STUDIES: While he was in the hospital, he had laboratory studies, details of which can be found in the laboratory section of his chart. COURSE IN HOSPITAL: After admission, he was placed on bedrest with intravenous fluids, antibiotics and updrafts. Temperature stayed down. Remained quite asymptomatic and felt that he could go home on the . This was discussed with Oncology. He will keep his regular appointment for his chemotherapy early next week. We will see him in the office in several days. FINAL DIAGNOSES: 1. Bronchopneumonia. 2. Carcinoma of the lung. OPERATIONS: None. CONSULTATIONS: Oncology. He is improved. MMODL / BRISEIDAN: [id number] /
[2019-01-17] MEDS ORDERED: AZITHROMYCIN 500 MG TAB PO SCH (09:00)
[2019-01-20] MEDS ORDERED: ERGOCALCIFEROL 50,000 UNIT CAP PO SCH (09:00)
--- NOTE | 2019-01-22 18:32 | PN ---
PROGRESS NOTE DATE OF SERVICE: 01/15/2019 CHIEF COMPLAINT: Pneumonitis. HISTORY OF PRESENT ILLNESS: This gentleman is doing well. He feels fine. He has had no shortness of breath, fever, chills, chest pain, sputum production, etc. PHYSICAL EXAM: Breath sounds are generally clear throughout, but they are somewhat diminished due to emphysema. Cardiac exam is normal. Abdomen is soft, nontender. IMPRESSION: 1. Bronchial pneumonia. 2. Carcinoma of the lung. 3. Chronic obstructive pulmonary disease. PLAN: Continue with IV fluids, antibiotics and updrafts. MMODL / IJN: [id number] /
== END 2019-01-16 13:30 | disposition home or self-care (01) ==
LOC: EC 03:53 → 3NMEDONC 06:43 → UNDOADMIN 06:43 → INTOOBSV 06:43 → UNDODISIN 01-16 13:30
PROVIDERS: ADMIT Family Medicine; ATTEND Family Medicine
DX: J18.0 Bronchopneumonia, unspecified organism (principal); C34.90 Malignant neoplasm of unspecified part of unspecified bronchus or lung; C77.0 Secondary and unspecified malignant neoplasm of lymph nodes of head, face and neck; C79.31 Secondary malignant neoplasm of brain; R00.0 Tachycardia, unspecified; J44.0 Chronic obstructive pulmonary disease with (acute) lower respiratory infection; D64.81 Anemia due to antineoplastic chemotherapy; H93.19 Tinnitus, unspecified ear; R25.1 Tremor, unspecified; T45.1X5A Adverse effect of antineoplastic and immunosuppressive drugs, initial encounter; Z79.51 Long term (current) use of inhaled steroids; Z79.899 Other long term (current) drug therapy; Z87.891 Personal history of nicotine dependence; Z82.49 Family history of ischemic heart disease and other diseases of the circulatory system; Z83.3 Family history of diabetes mellitus; Z82.3 Family history of stroke; Z80.9 Family history of malignant neoplasm, unspecified
CPT/HCPCS: 96366 ×3; 96367; 96361; 96365; 96375; 99285; 36415; 94640 ×5; 93005; 80053 ×2; 82550; 83605; 84484; 85025 ×2; 85610; 85730; 81001; 87040; 87070; 87086; 87205; 87502; 71046; G0378 ×3; J0456 ×3; J0696 ×3

== ENCOUNTER → 2019-02-22 | Outpatient (CLI) | payer OTHER ==
--- NOTE | 2019-02-22 10:25 | CT ---
EXAMINATION TYPE: CT chest w con DATE OF EXAM: 02/22/2019 COMPARISON: 11/30/2018 HISTORY: Lung cancer. Follow-up exam. CT DLP: 247.7 mGycm. Automated Exposure Control for Dose Reduction was Utilized. TECHNIQUE: CT scan of the thorax is performed following with IV Contrast, patient injected with 50 m L of Isovue 300. FINDINGS: LUNGS: There is continued response to treatment. The previously seen peribronchial soft tissue encasi ng the left lower lobe mainstem bronchus and segmental bronchi have improved in thickness in comparis on to the prior with the previous thickness measuring up to 1 cm and current thickness measuring up t o 5 mm marked on series 4 image 36. The downstream triangular-shaped area of atelectasis and/or under lying neoplasm has also improved previously measuring up to 3.4 x 1.3 cm and currently elongated ludmila uring up to 3.7 by only 0.6 cm. The consolidation of the medial left lower lobe previously measured 4 .1 x 2.8 cm has also improved currently measuring up to 2.9 x 1.4 cm when measured in a similar locat ion and decreasing in overall density. There is some residual downstream atelectasis that extends to the lung base such as on image 55. Again there is mild background centrilobular emphysema. There are new tree-in-bud opacities of the ri ght lower lobe and scattered reticular opacities also seen to a lesser degree in the right middle lob e and as well within the right upper lobe multifocally. These are peripheral predominant in the right upper lobe. Minimal groundglass density is seen within the left upper lobe on series 4 image 26. No pneumothorax or pleural effusion. MEDIASTINUM: There is overall stability of the mediastinal adenopathy with right paratracheal lymph n ode on series 3 image 21 again measuring 1.8 x 1.4 cm. Similar adenopathy within the aorticopulmonary window previously measured up to 2.4 cm and currently measures up to 2.1 cm. Mild coronary calcifica tions are seen. Heart is nonenlarged. Trace pericardial effusion is developed in the interim. OTHER: There is mild retroareolar gynecomastia noted. Aortic root is again upper limits of normal siz e measuring 3.9 cm. Supraclavicular lymph node on the right is somewhat similar to the prior previous ly measuring 3 mm and now measuring 4 mm on series 3 image 5. Thoracic inlet lymph node previously me asured 3 mm and now measures 4 mm, also similar. Gallbladder is contracted. No new discrete hepatic lesions are identified in the visualized portions of the liver. Adrenal glands are symmetric without nodularity. Moderate atherosclerosis of the upper abdominal aorta. Small granuloma is seen within the [place] spleen. There is redemonstration of sclerosis within the lateral eighth right rib that has progressed from th e interim. This is marked on series 3 image 45. Additionally there is a peripherally sclerotic lesion of right rib 10 laterally on image 69 is indeterminate. IMPRESSION: 1. Continued response to treatment. The previously seen left infrahilar and left perihilar neoplasm a nd peribronchial cuffing again has decreased in overall volume and size. 2. Progressive sclerosis of the lateral right eighth rib suggestive of unifocal metastasis. No new pierre spicious osseous lesions. 3. Medial left lower lobe opacity likely represented post obstructive atelectasis and continues to im prove. 4. Stable mediastinal, right supraclavicular and right thoracic inlet adenopathy in comparison to the most recent prior of 11/30/2018.
== END | disposition home or self-care (01) ==
LOC: RADCTMAIN 08:39
PROVIDERS: ATTEND Internal Medicine Hematology & Oncology
DX: C34.02 Malignant neoplasm of left main bronchus (principal)
CPT/HCPCS: 82565; 84520; 71260; 36415; Q9967

== ENCOUNTER 2019-04-22 16:24 | Emergency (ER) | payer OTHER ==
[2019-04-22 16:59] VITALS: TEMP 98.4
[2019-04-22] MEDS ORDERED: SODIUM CHLORIDE 0.9% 1,000 ML IV STA ×2 (17:19)
[2019-04-22 17:46] LABS: Basophils % (A) 0 %; Eosinophils # (A) 0.2 k/uL (0-0.7); Eosinophils % (A) 2 %; HCT 43.9 % (39.0-53.0); HGB 14.2 gm/dL (13.0-17.5); Lymphocytes # (A) 1.5 k/uL (1.0-4.8); Lymphocytes % (A) 16 %; MCH 32.1 pg (25.0-35.0); MCHC 32.2 g/dL (31.0-37.0); MCV 99.5 fL (80.0-100.0); Macrocytosis Slight; Monocytes # (A) 0.5 k/uL (0-1.0); Monocytes % (A) 5 %; Neutrophils # (A) 7.4 k/uL (1.3-7.7); Neutrophils % (A) 75 %; Platelet Count 331 k/uL (150-450); RBC 4.41 m/uL (4.30-5.90); RDW 15.8 % (11.5-15.5); WBC 9.8 k/uL (3.8-10.6)
--- NOTE | 2019-04-22 17:47 | ED ---
Nausea/Vomiting/Diarrhea HPI - General Chief complaint: Nausea/Vomiting/Diarrhea Stated complaint: Vomiting, CA PT Time Seen by Provider: 04/22/19 16:49 Source: patient, RN notes reviewed Mode of arrival: ambulatory Limitations: no limitations - History of Present Illness Initial comments: This is a 58-year-old male history of small cell lung cancer who is had radiation treatments and with her be treatments both which ended in January of this year who states he started developing over last several days nausea vomiting whenever he tries eating or drinking anything. He does have some lightheadedness when he gets up too fast no fevers chills orsweats just some nausea vomiting with any type of oral intake. He denies any abdominal pain. He also complains some left-sided chest pain is decided the lung cancer is on. MD complaint: nausea, vomiting - Related Data Home Medications Medication Instructions Recorded Confirmed Albuterol Inhaler [Ventolin Hfa 1 - 2 puff INHALATION RT-Q6H PRN 09/27/18 04/22/19 Inhaler] Ergocalciferol (Vitamin D2) 50,000 unit PO SA 10/22/18 04/22/19 [Vitamin D2] Ibuprofen 800 mg PO BID PRN 01/14/19 04/22/19 Fluticasone/Salmeterol 1 puff INHALATION RT-BID 04/22/19 04/22/19 [Fluticasone-Salmeterol 113-14] Ondansetron HCl [Zofran] 4 mg PO TID PRN 04/22/19 04/22/19 Previous Rx's Medication Instructions Recorded Metoclopramide [Reglan] 5 mg PO ACHS #20 tab 04/22/19 Allergies Allergy/AdvReac Type Severity Reaction Status Date / Time No Known Allergies Allergy Verified 04/22/19 17:32 Review of Systems ROS Statement: Those systems with pertinent positive or pertinent negative responses have been documented in the HPI. ROS Other: All systems not noted in ROS Statement are negative. Past Medical History Past Medical History: Cancer, COPD Additional Past Medical History / Comment(s): pilonidal cyst, I&D of cyst on buttocks in January 2018, required IV antibiotics and hospitalization. lung cancer, with mets to lymph node in neck and brain. Pt states in remission now, last chemo and radiation in january 2019 History of Any Multi-Drug Resistant Organisms: None Reported Additional Past Surgical History / Comment(s): hemmorhoid surgery, fistula repair,facial reconstructions approx 25yrs Past Anesthesia/Blood Transfusion Reactions: No Reported Reaction Past Psychological History: No Psychological Hx Reported Smoking Status: Former smoker Past Alcohol Use History: Daily Past Drug Use History: None Reported - Past Family History Father Family Medical History: CVA/TIA, Diabetes Mellitus Mother Family Medical History: Cancer Brother(s) Family Medical History: Myocardial Infarction ([place]) General Exam - General Exam Comments Initial Comments: This is a well-developed well-nourished awake alert oriented times 3 male Limitations: no limitations General appearance: alert, in no apparent distress Head exam: Present: atraumatic, normocephalic, normal inspection Eye exam: Present: normal appearance, PERRL, EOMI. Absent: scleral icterus, conjunctival injection, periorbital swelling ENT exam: Present: mucous membranes dry Neck exam: Present: normal inspection. Absent: tenderness, meningismus, lymphadenopathy Respiratory exam: Present: normal lung sounds bilaterally. Absent: respiratory distress, wheezes, rales, rhonchi, stridor Cardiovascular Exam: Present: regular rate, normal rhythm, normal heart sounds. Absent: systolic murmur, diastolic murmur, rubs, gallop, clicks GI/Abdominal exam: Present: soft, normal bowel sounds. Absent: distended, tenderness, guarding, rebound, rigid, bruit, pulsatile mass Extremities exam: Present: normal inspection, full ROM, normal capillary refill. Absent: tenderness, pedal edema, joint swelling, calf tenderness Back exam: Present: normal inspection Neurological exam: Present: alert, oriented X3, CN II-XII intact Psychiatric exam: Present: normal affect, normal mood Skin exam: Present: warm, dry, intact, normal color. Absent: rash Course Vital Signs 04/22/19 16:52 Temperature 98.4 F Pulse Rate 93 Respiratory 18 Rate Blood Pressure 130/93 O2 Sat by Pulse 95 Oximetry Medical Decision Making - Medical Decision Making Patient does feel much improved after IV hydration also he was able to keep fluids down after Reglan was administered. Patient will be discharged home with follow-up with his doctor return when necessary he does have an appointment in 4 days with his doctor. - Lab Data Result diagrams: 04/22/19 17:35 04/22/19 17:35 Lab Results 04/22/19 04/22/19 04/22/19 Range/Units 17:35 17:35 17:35 WBC 9.8 (3.8-10.6) k/uL RBC 4.41 (4.30-5.90) m/uL Hgb 14.2 (13.0-17.5) gm/dL Hct 43.9 (39.0-53.0) % MCV 99.5 (80.0-100.0) fL MCH 32.1 (25.0-35.0) pg MCHC 32.2 (31.0-37.0) g/dL RDW 15.8 H (11.5-15.5) % Plt Count 331 (150-450) k/uL Neutrophils % 75 % Lymphocytes % 16 % Monocytes % 5 % Eosinophils % 2 % Basophils % 0 % Neutrophils # 7.4 (1.3-7.7) k/uL Lymphocytes # 1.5 (1.0-4.8) k/uL Monocytes # 0.5 (0-1.0) k/uL Eosinophils # 0.2 (0-0.7) k/uL Basophils # 0.0 (0-0.2) k/uL Macrocytosis Slight Sodium 137 (137-145) mmol/L Potassium 4.6 (3.5-5.1) mmol/L Chloride 97 L (98-107) mmol/L Carbon Dioxide 31 H (22-30) mmol/L Anion Gap 9 mmol/L BUN 14 (9-20) mg/dL Creatinine 1.16 (0.66-1.25) mg/dL Est GFR (CKD-EPI)AfAm 80 (>60 ml/min/1.73 sqM) Est GFR (CKD-EPI)NonAf 70 (>60 ml/min/1.73 sqM) Glucose 93 (74-99) mg/dL Calcium 9.7 (8.4-10.2) mg/dL Magnesium 1.7 (1.6-2.3) mg/dL Total Bilirubin 0.4 (0.2-1.3) mg/dL AST 24 (17-59) U/L ALT 17 L (21-72) U/L Alkaline Phosphatase 58 (38-126) U/L Creatine Kinase 30 L (55-170) U/L Troponin I <0.012 (0.000-0.034) ng/mL Total Protein 7.1 (6.3-8.2) g/dL Albumin 4.0 (3.5-5.0) g/dL Lipase 275 (23-300) U/L - EKG Data -: EKG Interpreted by Me EKG shows normal: [place] rhythm ([place] [address] to QRS 84 QT since QTC 366/[address]-T wave changes) - Radiology Data Radiology results: report reviewed (I did review the imaging and report no acute findings other than possible evidence of enteritis.), image reviewed Disposition Clinical Impression: Dehydration, Gastritis, History of lung cancer Disposition: HOME SELF-CARE Condition: Good Instructions (If sedation given, give patient instructions): Acute Nausea and Vomiting (ED), Gastritis (ED) Prescriptions: Metoclopramide [Reglan] 5 mg PO ACHS #20 tab Is patient prescribed a controlled substance at d/c from ED?: No Referrals: Dionicio Altamirano MD [Primary Care Provider] - 1-2 days
[2019-04-22 17:55] LABS: Calcium 9.7 mg/dL (8.4-10.2); Magnesium 1.7 mg/dL (1.6-2.3); Potassium 4.6 mmol/L (3.5-5.1); Total Bilirubin 0.4 mg/dL (0.2-1.3); Total Protein 7.1 g/dL (6.3-8.2)
[2019-04-22] MEDS ORDERED: METOCLOPRAMIDE 5 MG/ML 2 ML VIAL IVP STA (18:56)
--- NOTE | 2019-04-22 19:19 | XR ---
EXAMINATION TYPE: XR chest 2V DATE OF EXAM: 04/22/2019 COMPARISON: Prior chest x-ray 01/14/2019 HISTORY: Cough, nausea and vomiting and diarrhea TECHNIQUE: Frontal and lateral views of the chest are obtained. FINDINGS: Patient is rotated. There are overlying cardiac leads. There is bronchial wall thickening p resent. There is no focal air space opacity, pleural effusion, or pneumothorax seen. The cardiac jacinto houette size is within normal limits. The osseous structures are intact. Prominent lung volume coul d be indicative of underlying COPD. IMPRESSION: Correlate for bronchitis, reactive airways disease.
--- NOTE | 2019-04-22 19:20 | XR ---
KUB HISTORY: Nausea vomiting and diarrhea Frontal KUB and 2 images Lung bases are clear. There are overlying cardiac leads. No evident pneumoperitoneum or bowel obstruc tion. Bone mineralization is normal. Air-fluid levels are noted. IMPRESSION: Correlate for enteritis and follow-up as indicated.
[2019-04-22 21:10] VITALS: BP 143/99; PULSE 87; RESP 16
== END 2019-04-22 21:14 | disposition home or self-care (01) ==
LOC: EC 16:24
DX: K29.70 Gastritis, unspecified, without bleeding (principal); E86.0 Dehydration; R07.9 Chest pain, unspecified; J44.9 Chronic obstructive pulmonary disease, unspecified; Z87.891 Personal history of nicotine dependence; Z79.51 Long term (current) use of inhaled steroids; Z79.899 Other long term (current) drug therapy; Z85.118 Personal history of other malignant neoplasm of bronchus and lung; Z92.3 Personal history of irradiation; Z92.21 Personal history of antineoplastic chemotherapy; Z85.841 Personal history of malignant neoplasm of brain; Z85.89 Personal history of malignant neoplasm of other organs and systems
CPT/HCPCS: 36415; 93005; 80053; 82550; 83690; 83735; 84484; 85025; 71046; 74018; 99284; 96374; 96361 ×3; J2765

== ENCOUNTER → 2019-05-09 | Outpatient (CLI) | payer OTHER ==
--- NOTE | 2019-05-09 14:44 | MR ---
EXAMINATION TYPE: MR brain wo/w con DATE OF EXAM: 05/09/2019 COMPARISON: CT chest dated 02/22/2019 and MRI brain dated 12/19/2018 as well as 10/06/2018. HISTORY: Secondary malignant neoplasm of brain TECHNIQUE: Multiplanar, multisequence images of the brain and brainstem is performed without and with IV contras t, utilizing 7 mL intravenous Gadavist . FINDINGS: Motion artifact is seen, somewhat limiting evaluation. Diffusion weighted images demonstrate no evidence of a recent infarct or other diffusion abnormality. There is no extra-axial fluid collection. Similar burden nonspecific white matter changes seen as s cattered foci of T2/FLAIR hyperintensity in the periventricular and subcortical white matter. Again t here are proximally 40 small lesions present. The ventricular system and cisternal spaces are symmetr ically prominent compatible with mild degree volume loss. Midline structures demonstrate normal morphology. The craniocervical junction appears within normal limits. There is a vague 2 mm punctate focus of subtle enhancement at the previously seen right front al extra-axial mass on the exam of 10/06/2018. This is likely not seen on the prior exam given its colin y small size and slice selection. No surrounding mass effect or intracranial vasogenic edema. Punctat e focus of enhancement within the right cerebellar hemisphere measuring approximate 3 mm has no T1 or T2 correlate and may be artifactual. Attention on follow-up exams to exclude new focus of metastasis . The dural venous sinuses appear patent. Very minimal mucosal thickening in the ethmoid sinuses. The remaining visualized sinuses are clear and the globes are intact. There is partial opacification of the bilateral mastoid air cells. IMPRESSION: 1. Punctate 2 mm focus of right frontal extra-axial enhancement, diminished in size from 1.3 cm on th e exam of 10/06/2018. This was likely not seen on the prior exam given its very small size and slice s election. No progression is suspected. 2. Punctate focus of enhancement within the right cerebellar hemisphere without correlate on unenhanc ed T1 or T2-weighted imaging, which could be artifactual or relate to very small new focus of metasta sis. Attention on follow-up exams. 3. Similar moderate burden nonspecific white matter change, likely on the basis of chronic microangio shaun. 4. Partial opacification of the bilateral mastoid air cells. Poorly with point tenderness to exclude mastoiditis.
== END | disposition home or self-care (01) ==
LOC: RADMRIMAIN 12:00
PROVIDERS: ATTEND Radiology Radiation Oncology
DX: R90.89 Other abnormal findings on diagnostic imaging of central nervous system (principal); C79.31 Secondary malignant neoplasm of brain; C34.2 Malignant neoplasm of middle lobe, bronchus or lung; F17.210 Nicotine dependence, cigarettes, uncomplicated
CPT/HCPCS: 70553; A9585

== ENCOUNTER → 2019-05-12 | Outpatient (CLI) | payer OTHER ==
--- NOTE | 2019-05-12 07:50 | CT ---
EXAMINATION TYPE: CT chest w con DATE OF EXAM: 05/12/2019 COMPARISON: Previous study dated 02/22/2019. HISTORY: Lung cancer. Last chemo and radiation [address] DLP: 221.5 mGycm Automated exposure control for dose reduction was used. CONTRAST: CT scan of the chest is performed with IV Contrast, patient injected with 100 mL of Isovue M300. FINDINGS: The patient's left infrahilar mass lesion remains unchanged in size and appearance to the p revious examination and measures 28.3 x 20.2 mm on today's examination. There continues to be periphe ral airspace disease distal to this which may represent postobstructive change. There is worsening subcarinal and left hilar adenopathy. Subcarinal adenopathy which is virtually non existent previously now measures 2.3 x 3.3 cm. Right hilar adenopathy measures 5.1 x 2.5 cm and is pa rtially obstructing the left lower lobe bronchus as well as a left lingular bronchus. There is right paratracheal adenopathy which is increased in size from 1.4 x 1.8 cm to 1.8 x 2 cm. There are innumerable hepatic lesions, more obvious on the previous examination which likely represen ts metastatic spread to the liver. The adrenal glands appear normal. The heart is not enlarged. There has developed an 11 mm pericardial effusion. There continues to be sclerosis of the posterior aspect of the right eighth rib, essentially unchange d from previous. No other definite bony destructive lesion is seen. IMPRESSION: 1. STABLE LEFT INFRAHILAR MASS. 2. WORSENING LEFT HILAR, SUBCARINAL AND RIGHT PARATRACHEAL ADENOPATHY. 3. LESIONS WITHIN THE LIVER, MOST LIKELY REPRESENTING METASTASES. 4. CONTINUED SCLEROSIS OF THE RIGHT 11TH RIB SUSPICIOUS FOR METASTATIC DISEASE. 5. INCREASING PERICARDIAL EFFUSION.
== END | disposition home or self-care (01) ==
LOC: RADCTMAIN 07:03
PROVIDERS: ATTEND Internal Medicine Hematology & Oncology
DX: I31.3 Pericardial effusion (noninflammatory) (principal)
CPT/HCPCS: 71260; Q9967

== ENCOUNTER → 2019-06-13 | Outpatient (CLI) | payer OTHER ==
--- NOTE | 2019-06-13 19:15 | MR ---
EXAMINATION TYPE: MR brain wo/w con DATE OF EXAM: 06/13/2019 COMPARISON: 05/09/2019 HISTORY: Headaches, hx lung ca w brain mets TECHNIQUE: Multiplanar, multisequence images of the brain and brainstem is performed without and with IV contras t, utilizing 7 mL intravenous Gadavist . FINDINGS: Ventricles have normal size. There is no mass effect nor midline shift. There is no sign of intracranial hemorrhage. There is no evidence of cortical infarct. There is 8 mm ring-enhancing focu s in the inferior aspect of the right cerebellar hemisphere consistent with metastatic disease. This lesion measures 3 mm on previous exam. There is a 4 mm focus of enhancement inferior left cerebellar hemisphere that appears new compared to recent exam. There is similar 4 mm nodular enhancing focus la teral right cerebellar hemisphere. I see no definite pathologic enhancement above the tentorium. The brainstem is intact. There is normal contrast opacification of the venous sinuses. IMPRESSION: Multiple cerebellar intra-axial enhancing nodular foci consistent with metastatic disease that are new or increased compared to old exam and consistent with metastatic disease.
== END | disposition home or self-care (01) ==
LOC: RADMRIMAIN 17:50
PROVIDERS: ATTEND Internal Medicine Hematology & Oncology
DX: C34.92 Malignant neoplasm of unspecified part of left bronchus or lung (principal); G93.89 Other specified disorders of brain
CPT/HCPCS: 70553; A9585

== ENCOUNTER 2019-07-10 16:11 | Observation (INO) | payer OTHER ==
[2019-07-10] MEDS ORDERED: IPRATROPIUM-ALBUTEROL 3 ML NEB INHALATION STA (16:42)
[2019-07-10] MEDS ORDERED: SODIUM CHLORIDE 0.9% 1,000 ML IV STA (16:42)
[2019-07-10] MEDS ORDERED: MORPHINE SULFATE 4 MG/ML SYRINGE IVP STA ×2 (16:43→19:58)
--- NOTE | 2019-07-10 16:49 | ED ---
SOB HPI - General Chief Complaint: Shortness of Breath Stated Complaint: Small cell Cancer/ Cough Time Seen by Provider: 07/10/19 16:31 Source: patient, RN notes reviewed, old records reviewed Mode of arrival: ambulatory Limitations: no limitations - History of Present Illness Initial Comments: This is a 59-year-old male the ER today. Presents today for evaluation of cough persistent cough with known history of lung cancer. Left lobe lung cancer. P josafat's cough is been intermittent but increasing. During his coughing fit significant severe shortness of breath cough and vomiting currently going through immunotherapy. Otherwise patient has no fevers. Admits to some low- grade fevers when he takes his temp is normal. Patient is a former smoker with a history of COPD. He is on pain medication and still having left-sided chest. He states this is not his heart is reviewed cancers this pain is sometimes does have MD Complaint: shortness of breath, cough -: days(s) Severity: mild Severity scale (1-10): 3 Quality: aching Consistency: intermittent (Worse with cough) Improves With: rest, bronchodilators, upright position Worsens With: exertion Known History Of: COPD, other (Lung cancer) Context: recent URI Associated Symptoms: chest pain, pain with inspiration, cough, sputum production Treatments Prior to Arrival: none - Related Data Home Medications Medication Instructions Recorded Confirmed RX: Albuterol Inhaler [Ventolin 2 puff INHALATION RT-Q6H PRN 09/27/18 07/10/19 Hfa Inhaler] RX: Ergocalciferol (Vitamin D2) 50,000 unit PO SA 10/22/18 07/10/19 [Vitamin D2] RX: Ibuprofen 800 mg PO BID PRN 01/14/19 07/10/19 Benzonatate [Tessalon Perles] 100 mg PO TID PRN 07/10/19 07/10/19 Fluticasone/Salmeterol 1 puff INHALATION RT-BID 07/10/19 07/10/19 [Fluticasone-Salmeterol 232-14] Hydrocodone/Acetaminophen [[place] 1 tab PO TID PRN 07/10/19 07/10/19 10-325] Prochlorperazine [Compazine] 10 mg PO Q6H PRN 07/10/19 07/10/19 RX: Dexamethasone 1 mg PO BID 07/10/19 07/10/19 RX: Omeprazole 20 mg PO BID 07/10/19 07/10/19 Allergies Allergy/AdvReac Type Severity Reaction Status Date / Time No Known Allergies Allergy Verified 07/10/19 16:45 Review of Systems ROS Statement: Those systems with pertinent positive or pertinent negative responses have been documented in the HPI. ROS Other: All systems not noted in ROS Statement are negative. Past Medical History Past Medical History: Cancer, COPD Additional Past Medical History / Comment(s): pilonidal cyst, I&D of cyst on buttocks in January 2018, required IV antibiotics and hospitalization. lung cancer, with mets to lymph node in neck and brain. Pt states in remission now, last chemo and radiation in january 2019 History of Any Multi-Drug Resistant Organisms: None Reported Additional Past Surgical History / Comment(s): hemmorhoid surgery, fistula repair,facial reconstructions approx 25yrs Past Anesthesia/Blood Transfusion Reactions: No Reported Reaction Past Psychological History: No Psychological Hx Reported Smoking Status: Former smoker Past Alcohol Use History: Daily Past Drug Use History: None Reported - Past Family History Father Family Medical History: CVA/TIA, Diabetes Mellitus Mother Family Medical History: Cancer Brother(s) Family Medical History: Myocardial Infarction ([place]) General Exam Limitations: no limitations General appearance: alert, in no apparent distress Head exam: Present: atraumatic, normocephalic, normal inspection Eye exam: Present: normal appearance, PERRL, EOMI. Absent: scleral icterus, conjunctival injection, periorbital swelling ENT exam: Present: normal exam, mucous membranes dry Neck exam: Present: normal inspection. Absent: tenderness, meningismus, lymphadenopathy Respiratory exam: Present: wheezes, accessory muscle use, decreased breath sounds, prolonged expiratory. Absent: respiratory distress, rales, rhonchi, str idor Cardiovascular Exam: Present: normal rhythm, tachycardia, normal heart sounds. Absent: systolic murmur, diastolic murmur, rubs, gallop, clicks GI/Abdominal exam: Present: soft, normal bowel sounds. Absent: distended, tenderness, guarding, rebound, rigid Extremities exam: Present: normal inspection, full ROM, normal capillary refill. Absent: tenderness, pedal edema, joint swelling, calf tenderness Back exam: Present: normal inspection Neurological exam: Present: alert, oriented X3, CN II-XII intact Psychiatric exam: Present: normal affect, normal mood Skin exam: Present: warm, dry, intact, normal color. Absent: rash Course Vital Signs 07/10/19 07/10/19 07/10/19 16:20 17:04 17:24 Temperature 97.9 F Pulse Rate 124 H 108 H 104 H Respiratory 24 Rate Blood Pressure 94/66 O2 Sat by Pulse 96 Oximetry 07/10/19 19:36 Temperature Pulse Rate 102 H Respiratory 18 Rate Blood Pressure 110/84 O2 Sat by Pulse 96 Oximetry - Reevaluation(s) Reevaluation #1: 07/10/19 16:49 Medical records reviewed Reevaluation #2: 07/10/19 22:12 A she not feeling better after breathing treatments - Consultations Consultation #1: Spoke with Dr. Altamirano who is okay for admission Medical Decision Making - Medical Decision Making 59 male the ER for evaluation of history of lung C8 coming of shortness of breath and pain. Patient be admitted for pain control breathing treatments and steroids as needed - Lab Data Result diagrams: 07/10/19 17:10 07/10/19 17:10 Lab Results 07/10/19 07/10/19 07/10/19 Range/Units 17:10 17:10 17:10 WBC 11.7 H (3.8-10.6) k/uL RBC 3.99 L (4.30-5.90) m/uL Hgb 12.1 L (13.0-17.5) gm/dL Hct 36.8 L (39.0-53.0) % MCV 92.4 (80.0-100.0) fL MCH 30.3 (25.0-35.0) pg MCHC 32.7 (31.0-37.0) g/dL RDW 13.8 (11.5-15.5) % Plt Count 531 H (150-450) k/uL Neutrophils % 82 % Lymphocytes % 4 % Monocytes % 4 % Eosinophils % 7 % Basophils % 2 % Neutrophils # 9.5 H (1.3-7.7) k/uL Lymphocytes # 0.5 L (1.0-4.8) k/uL Monocytes # 0.5 (0-1.0) k/uL Eosinophils # 0.9 H (0-0.7) k/uL Basophils # 0.2 (0-0.2) k/uL PT (9.0-12.0) sec INR (<1.2) APTT (22.0-30.0) sec Sodium 130 L (137-145) mmol/L Potassium 3.7 (3.5-5.1) mmol/L Chloride 92 L (98-107) mmol/L Carbon Dioxide 26 (22-30) mmol/L Anion Gap 12 mmol/L BUN 13 (9-20) mg/dL Creatinine 0.85 (0.66-1.25) mg/dL Est GFR (CKD-EPI)AfAm >90 (>60 ml/min/1.73 sqM) Est GFR (CKD-EPI)NonAf >90 (>60 ml/min/1.73 sqM) Glucose 109 H (74-99) mg/dL Calcium 9.6 (8.4-10.2) mg/dL Magnesium 1.1 L (1.6-2.3) mg/dL Total Bilirubin 0.6 (0.2-1.3) mg/dL AST 81 H (17-59) U/L ALT 73 H (21-72) U/L Alkaline Phosphatase 252 H (38-126) U/L Creatine Kinase 86 (55-170) U/L Troponin I (0.000-0.034) ng/mL NT-Pro-B Natriuret Pep 373 pg/mL Total Protein 6.6 (6.3-8.2) g/dL Albumin 3.4 L (3.5-5.0) g/dL 07/10/19 07/10/19 Range/Units 17:10 17:10 WBC (3.8-10.6) k/uL RBC (4.30-5.90) m/uL Hgb (13.0-17.5) gm/dL Hct (39.0-53.0) % MCV (80.0-100.0) fL MCH (25.0-35.0) pg MCHC (31.0-37.0) g/dL RDW (11.5-15.5) % Plt Count (150-450) k/uL Neutrophils % % Lymphocytes % % Monocytes % % Eosinophils % % Basophils % % Neutrophils # (1.3-7.7) k/uL Lymphocytes # (1.0-4.8) k/uL Monocytes # (0-1.0) k/uL Eosinophils # (0-0.7) k/uL Basophils # (0-0.2) k/uL PT 10.0 (9.0-12.0) sec INR 0.9 (<1.2) APTT 25.7 (22.0-30.0) sec Sodium (137-145) mmol/L Potassium (3.5-5.1) mmol/L Chloride (98-107) mmol/L Carbon Dioxide (22-30) mmol/L Anion Gap mmol/L BUN (9-20) mg/dL Creatinine (0.66-1.25) mg/dL Est GFR (CKD-EPI)AfAm (>60 ml/min/1.73 sqM) Est GFR (CKD-EPI)NonAf (>60 ml/min/1.73 sqM) Glucose (74-99) mg/dL Calcium (8.4-10.2) mg/dL Magnesium (1.6-2.3) mg/dL Total Bilirubin (0.2-1.3) mg/dL AST (17-59) U/L ALT (21-72) U/L Alkaline Phosphatase (38-126) U/L Creatine Kinase (55-170) U/L Troponin I <0.012 (0.000-0.034) ng/mL NT-Pro-B Natriuret Pep pg/mL Total Protein (6.3-8.2) g/dL Albumin (3.5-5.0) g/dL - EKG Data -: EKG Interpreted by Me (EKG shows normal sinus rhythm rate of 87, AK 140, QRS 80, QTC 440) - Radiology Data Radiology results: report reviewed (Chest x-ray CTA chest negative for significant acute disease), image reviewed Disposition Clinical Impression: Acute exacerbation of chronic obstructive pulmonary disease, COPD (chronic obstructive pulmonary disease), Small cell lung cancer Disposition: ADMITTED IP TO THIS HOSP Condition: Fair Is patient prescribed a controlled substance at d/c from ED?: No Referrals: Dionicio Altamirano MD [Primary Care Provider] - 1-2 days
[2019-07-10 17:29] LABS: Basophils # (A) 0.2 k/uL (0-0.2); Basophils % (A) 2 %; Eosinophils # (A) 0.9 k/uL (0-0.7); Eosinophils % (A) 7 %; HCT 36.8 % (39.0-53.0); HGB 12.1 gm/dL (13.0-17.5); Lymphocytes # (A) 0.5 k/uL (1.0-4.8); Lymphocytes % (A) 4 %; MCH 30.3 pg (25.0-35.0); MCHC 32.7 g/dL (31.0-37.0); MCV 92.4 fL (80.0-100.0); Mean Platelet Volume 6.7; Monocytes # (A) 0.5 k/uL (0-1.0); Monocytes % (A) 4 %; Neutrophils # (A) 9.5 k/uL (1.3-7.7); Neutrophils % (A) 82 %; Platelet Count 531 k/uL (150-450); RBC 3.99 m/uL (4.30-5.90); RDW 13.8 % (11.5-15.5); WBC 11.7 k/uL (3.8-10.6)
[2019-07-10 17:43] LABS: ALT 73 U/L (21-72); AST 81 U/L (17-59); African American GFR (CKD) >90 (>60 ml/min/1.73 sqM); Albumin 3.4 g/dL (3.5-5.0); Alkaline Phosphatase 252 U/L (38-126); Anion Gap 12 mmol/L; Blood Urea Nitrogen 13 mg/dL (9-20); Calcium 9.6 mg/dL (8.4-10.2); Carbon Dioxide 26 mmol/L (22-30); Chloride 92 mmol/L (98-107); Creatine Kinase 86 U/L (55-170); Glucose 109 mg/dL (74-99); Magnesium 1.1 mg/dL (1.6-2.3); Non-African American GFR(CKD) >90 (>60 ml/min/1.73 sqM); Potassium 3.7 mmol/L (3.5-5.1); Sodium 130 mmol/L (137-145); Total Bilirubin 0.6 mg/dL (0.2-1.3); Total Protein 6.6 g/dL (6.3-8.2)
[2019-07-10 17:45] LABS: INR 0.9 (<1.2); Partial Thromboplastin Time 25.7 sec (22.0-30.0)
--- NOTE | 2019-07-10 19:52 | XR ---
EXAMINATION TYPE: XR chest 2V DATE OF EXAM: 07/10/2019 COMPARISON: Chest x-ray April 22, 2019. Chest CT May 12, 2019. HISTORY: History of small cell lung cancer with difficulty in breathing and cough. TECHNIQUE: Frontal and lateral views of the chest are obtained. FINDINGS: Background chronic emphysematous change with left hilar mass or neoplasm redemonstrated. Th ere is no new suspicious focal air space opacity, pleural effusion, or pneumothorax seen. The cardia c silhouette size remains within normal limits. Expansile sclerotic right lateral metastatic rib lesi on redemonstrated. IMPRESSION: Overall stable findings, chronic emphysematous change with left hilar mass/neoplasm with out acute pulmonary process.
[2019-07-10] MEDS: MORPHINE SULFATE 4 MG/ML SYRINGE IVP PRN ×2 (20:00→23:25)
--- NOTE | 2019-07-10 21:15 | CT ---
EXAMINATION TYPE: CT angio chest with contrast and with 3-D reconstruction renderings DATE OF EXAM: 07/10/2019 8:25 PM COMPARISON: 05/12/2019 HISTORY: SOB, Lung CA CT DLP: 276.2 mGycm Automated exposure control for dose reduction was used. CONTRAST: CTA scan of the thorax is performed with IV Contrast, patient injected with 100 mL of Isovu e 370, pulmonary embolism protocol. Three-D reconstructions. FINDINGS: LUNGS: There neoplasm has caused prominent narrowing of the left mainstem bronchus, having increased in the interim. There is severe narrowing of the segmental airways throughout the left lung, particul savi involving the left lower lobe, with atelectasis now involving approximately 50% of the left lowe r lobe. PLEURAL SPACES: There is no pleural effusion or pneumothorax. MEDIASTINUM: There is satisfactory enhancement of the pulmonary artery and its branches, and there is no CT evidence for pulmonary embolism. There is narrowing of the caliber of the distal left main pulmonary artery and segmental branches. There is no acute aortic pathology. No cardiomegaly, but there is a moderate pericardial effusion, having increased since the prior study . No intracardiac filling defects. The infiltrating hilar/mediastinal neoplasm has approximately doubled in its volume when compared to the May 12, 2019 CT. The left inferior pulmonary vein is now occluded from direct neoplastic invasion. The superior vena cava remains patent, although its caliber is severely diminished, but similar to e prior study. OTHER: The liver has increased considerably in its size with innumerable lesions, approximately doub led since the prior study. Bone metastatic lesions appear relatively similar when compared to the bran or study. IMPRESSION: 1. NEGATIVE FOR PULMONARY EMBOLISM. 2. POSITIVE FOR LEFT AIRWAY NARROWING WITH INCREASED RIGHT LOWER LOBE ATELECTASIS. NO OTHER ACUTE PUL MONARY/PLEURAL PROCESS. 3. PERICARDIAL EFFUSION.
[2019-07-10] MEDS ORDERED: methylPREDNISolone SOD SUCCI 125 MG/2 ML VIAL IV STA (22:11)
[2019-07-11] MEDS: MORPHINE SULFATE 4 MG/ML SYRINGE IVP PRN ×4 (07:41→19:53)
[2019-07-11] MEDS: methylPREDNISolone SOD SUCCI 125 MG/2 ML VIAL IV SCH ×3 (07:41→17:24)
[2019-07-11] MEDS: IPRATROPIUM-ALBUTEROL 3 ML NEB INHALATION SCH ×4 (08:11→20:02)
[2019-07-11] MEDS ORDERED: PROCHLORPERAZINE 10 MG TAB PO PRN (11:34)
[2019-07-11] MEDS ORDERED: PANTOPRAZOLE 40 MG TABLET PO SCH (11:45)
[2019-07-11] MEDS: DEXAMETHASONE 4 MG TAB PO SCH ×2 (12:01→20:02)
--- NOTE | 2019-07-11 12:53 | HP ---
HISTORY AND PHYSICAL CHIEF COMPLAINT: Left-sided chest pain, shortness of breath. HISTORY OF PRESENT ILLNESS: This is another admission for this 59-year-old white male who has carcinoma of the lung. He has been struggling valiantly, but has lately been losing more and more weight and has become weak enough that he cannot work. He has started to have increasing pain in the left chest, shortness of breath and came to emergency room. He is admitted with intractable pain and shortness of breath. He has had no cough, hemoptysis, fever, chills, etc. REVIEW OF SYSTEMS: Review of systems otherwise unremarkable. Past medical history, family history and personal and social histories demonstrate he is not allergic to any medication. He is on albuterol inhaler, Reglan, ondansetron for nausea. He is also on updrafts with DuoNeb. The remainder of his history is unremarkable. He has been a moderate consumer of alcohol and has quit smoking. He is currently to be starting chemotherapy. PHYSICAL EXAMINATION: Blood pressure is 104/68, pulse of 82, respirations of 34, and he is afebrile. IN GENERAL: He appeared to be very slender, and almost cachectic. Skin color is normal. Skin is warm, dry. Lymph nodes are not enlarged. Head, ears, eyes, nose, mouth, and throat were normal. Neck veins not distended. Thyroid is not enlarged. Chest demonstrates poor breath sounds on the left. Cardiac exam is normal, sinus tachycardia. Abdomen is soft, nontender. Extremities are normal. Neurologically, he is intact. IMPRESSION: 1. Intractable chest pain. 2. Chronic obstructive pulmonary disease. 3. Carcinoma of the lung. PLAN: 1. Bed rest. 2. IV fluids. 3. Analgesics. 4. Consult with Oncology. MMODL / IJN: [id number] /
[2019-07-11] MEDS: BENZONATATE 100 MG CAP PO PRN (15:18)
--- NOTE | 2019-07-11 15:20 | PN ---
PROGRESS NOTE CHIEF COMPLAINT: Acute left chest pain, shortness of breath and CA of the lung. HISTORY OF PRESENT ILLNESS: This gentleman's left-sided chest pain has crescendoed. He has had no fever, chills, cough, hemoptysis. He is more short of breath. PHYSICAL EXAMINATION: Breath sounds are decreased in the left thorax, anteriorly and posteriorly with occasional rales and rhonchi. Cardiac exam is normal. IMPRESSION: 1. Metastatic CA of the lung with severe and intractable left chest pain, shortness of breath. 2. Chronic obstructive pulmonary disease. PLAN: Oncology referral and continue to increase his analgesics. MMODL / IJN: [id number] /
--- NOTE | 2019-07-11 17:02 | P.CONS ---
History of Present Illness - Reason for Consult Consult date: 07/11/19 lt chest pain, SOB, metastatic lung adencocarcinoma Requesting physician: Dionicio Altamirano - Chief Complaint chest pain, cough - History of Present Illness Mr. Bolanos is a very pleasant male pt of Dr. Aguilar who presented to a hospital in [place] with cough when visiting in late 2017, he had associated symptoms of anorexia and by the time he was seen y Dr. Aguilar 10/14 he had a 25lbs weight loss X 6 months. 30 year pack history of smoking, no family history of malignancy.. CXR revealed LLL abnormality. At home he follow up with PCP Dr. Altamirano who ordered CT chest 08/25/18 revealing hilar mass with conglomerate mediastinal lymphadenopathy. Staging PET 09/30/18 revealing FDG-Avid L hilar mass and mediastinal lymphadenopathy, as well as rt supraclavicular lymph node, no distant metastatic disease. Bronchoscopy on 09/28/18 revealed endobronchial disease at lt main stem, path postive for small cell carcinoma. MRI of the brain showed small lesions c/w mets but, was asymptomatic so plan to monitor. He started concurrent cisplatin and radiation. In early November he was hospitalized for fever, recovered, CT chest showed significant improvement. He went on to complete 6 cycles. He completed prophylactic cranial irradiation in February. In April he had c/o increasing lt sided chest pain & SOB, CT unfortunately showed progressive disease. He had cycle 2 of yervoy and opdivo on 07/03. He has no SE to c/o, he actually looks well, he is eating really good. He came to hospital with c/o pain in the upper lt chest, stabbing, goes through to his back, he did not have good pain control. Cough has been intractable, making the pain worse. He denied fevers, difficulty swallowing, wheezing, increased RENNY/SOB, abd stephanie, bloating, diarrhea, rash, swelling, or bleeding. He has noticed increase in "floaters" in his eyes, denies loss of vision, neurological deficits. Review of Systems 14 point ROS is neqative except as stated in HPI Past Medical History Past Medical History: Cancer, COPD Additional Past Medical History / Comment(s): pilonidal cyst, I&D of cyst on buttocks in January 2018, required IV antibiotics and hospitalization. small cell lung cancer, with mets to lymph node in neck and brain. Pt states in remission now, last chemo and radiation in january 2019 History of Any Multi-Drug Resistant Organisms: None Reported Additional Past Surgical History / Comment(s): hemmorhoid surgery, fistula repa ir,facial reconstructions approx 25yrs Past Anesthesia/Blood Transfusion Reactions: No Reported Reaction Past Psychological History: No Psychological Hx Reported Smoking Status: Former smoker Past Alcohol Use History: None Reported, Unable to Obtain, Daily Additional Past Alcohol Use History / Comment(s): start smoking 1969, stop in Sep 2018 Past Drug Use History: None Reported - Past Family History Father Family Medical History: CVA/TIA, Diabetes Mellitus Mother Family Medical History: Cancer Brother(s) Family Medical History: Myocardial Infarction ([place]) Medications and Allergies Home Medications Medication Instructions Recorded Confirmed Type Albuterol Inhaler [Ventolin Hfa 2 puff INHALATION RT-Q6H PRN 09/27/18 07/10/19 History Inhaler] Ergocalciferol (Vitamin D2) 50,000 unit PO SA 10/22/18 07/10/19 History [Vitamin D2] Ibuprofen 800 mg PO BID PRN 01/14/19 07/10/19 History Benzonatate [Tessalon Perles] 100 mg PO TID PRN 07/10/19 07/10/19 History Dexamethasone 1 mg PO BID 07/10/19 07/10/19 History Fluticasone/Salmeterol 1 puff INHALATION RT-BID 07/10/19 07/10/19 History [Fluticasone-Salmeterol 232-14] Hydrocodone/Acetaminophen [[place] 1 tab PO TID PRN 07/10/19 07/10/19 History 10-325] Omeprazole 20 mg PO BID 07/10/19 07/10/19 History Prochlorperazine [Compazine] 10 mg PO Q6H PRN 07/10/19 07/10/19 History Allergies Allergy/AdvReac Type Severity Reaction Status Date / Time No Known Allergies Allergy Verified 07/10/19 16:45 Physical Exam Vitals: Vital Signs Temp Pulse Pulse Resp BP BP Pulse Ox 07/11/19 11:23 89 07/11/19 11:14 88 07/11/19 08:25 100 07/11/19 08:12 92 18 96 07/11/19 07:00 98.1 F 93 16 106/75 97 07/11/19 04:00 16 07/11/19 00:05 93 16 07/10/19 22:58 98.4 F 96 19 110/76 95 07/10/19 22:29 88 16 118/78 97 07/10/19 19:36 102 H 18 110/84 96 07/10/19 17:24 104 H 07/10/19 17:04 108 H 07/10/19 16:20 97.9 F 124 H 24 94/66 96 Intake and Output 07/10/19 07/11/19 07/11/19 22:59 06:59 14:59 Other: Voiding Method Toilet # Voids 1 3 Weight 63.957 kg - Constitutional General appearance: cooperative, no acute distress, thin - EENT Eyes: anicteric sclerae, EOMI ENT: hearing grossly normal, normal oropharynx - Neck Neck: no lymphadenopathy - Respiratory Respiratory: right: CTA, left: diminished - Cardiovascular Rhythm: regular Heart sounds: normal: S1, S2 Abnormal Heart Sounds: no systolic murmur, no diastolic murmur, no rub, no S3 Gallop, no S4 Gallop, no click, no other leg Peripheral Edema: bilateral: None - Gastrointestinal General gastrointestinal: no absent bowel sounds, no decreased bowel sounds, no distended, no hepatomegaly, no hyperactive bowel sounds, normal bowel sounds, no organomegaly, no rigid, no scaphoid, soft, no splenomegaly, no tenderness, no umbilical hernia, no ventral hernia - Integumentary Integumentary: normal - Neurologic Neurologic: CNII-XII intact - Musculoskeletal Musculoskeletal: strength equal bilaterally - Psychiatric Psychiatric: A&O x's 3, appropriate affect, intact judgment & insight Results CBC & Chem 7: 07/10/19 17:10 07/10/19 17:10 Labs: Abnormal Lab Results - Last 24 Hours (Table) 07/10/19 07/10/19 Range/Units 17:10 17:10 WBC 11.7 H (3.8-10.6) k/uL RBC 3.99 L (4.30-5.90) m/uL Hgb 12.1 L (13.0-17.5) gm/dL Hct 36.8 L (39.0-53.0) % Plt Count 531 H (150-450) k/uL Neutrophils # 9.5 H (1.3-7.7) k/uL Lymphocytes # 0.5 L (1.0-4.8) k/uL Eosinophils # 0.9 H (0-0.7) k/uL Sodium 130 L (137-145) mmol/L Chloride 92 L (98-107) mmol/L Glucose 109 H (74-99) mg/dL Magnesium 1.1 L (1.6-2.3) mg/dL AST 81 H (17-59) U/L ALT 73 H (21-72) U/L Alkaline Phosphatase 252 H (38-126) U/L Albumin 3.4 L (3.5-5.0) g/dL CT scan - chest: report reviewed Assessment and Plan (1) Small cell lung cancer Narrative/Plan: Pt is s/p 2 cycles of dual agent immunotherapy. Scan was reviewed with Dr. Aguilar. At this time this would not be considered disease progression-it is too early in treatment to evaluate due to immunotherapy phenomenon of pseudoprogression. Pt does not have symptoms r/t or thought to be associated with immune therapy side effects. We will monitor labs-including the LFT changes, few additional labs ordered. Cont low dose steroids as prescribed. Current Visit: Yes Status: Chronic Priority: Medium Code(s): C34.90 - MALIGNANT NEOPLASM OF UNSP PART OF UNSP BRONCHUS OR LUNG SNOMED Code(s): 026557639 (2) Metastatic cancer to brain Current Visit: Yes Status: Chronic Priority: Medium Code(s): C79.31 - SECONDARY MALIGNANT NEOPLASM OF BRAIN SNOMED Code(s): 23089709 Plan: Pt states cough and pain better since admit-cont meds as prescribed. Will change PPI to H2 antagonist-literature suggests that PPIs can interfere with immunotherapy
[2019-07-11] MEDS: HYDROcodone/APAP 10-325MG 1 EACH TAB PO PRN (17:23)
[2019-07-11] MEDS: SYMBICORT 160-4.5 MCG INHALER INHALATION SCH (20:02)
[2019-07-11] MEDS: FAMOTIDINE 20 MG TAB PO SCH (20:02)
[2019-07-11] MEDS: IBUPROFEN 800 MG TAB PO PRN (21:37)
[2019-07-12] MEDS: methylPREDNISolone SOD SUCCI 125 MG/2 ML VIAL IV SCH ×5 (00:52→23:29)
[2019-07-12] MEDS: MORPHINE SULFATE 4 MG/ML SYRINGE IVP PRN ×2 (00:56→06:05)
[2019-07-12] MEDS: HYDROcodone/APAP 10-325MG 1 EACH TAB PO PRN (02:51)
[2019-07-12] MEDS: IPRATROPIUM-ALBUTEROL 3 ML NEB INHALATION SCH ×4 (07:16→20:32)
[2019-07-12] MEDS: SYMBICORT 160-4.5 MCG INHALER INHALATION SCH ×2 (07:16→20:32)
[2019-07-12] MEDS: FAMOTIDINE 20 MG TAB PO SCH ×2 (08:53→20:23)
[2019-07-12] MEDS: IBUPROFEN 800 MG TAB PO PRN (08:54)
[2019-07-12] MEDS: BENZONATATE 100 MG CAP PO PRN ×2 (09:00→20:28)
[2019-07-12] MEDS: DEXAMETHASONE 4 MG TAB PO SCH ×2 (10:56→20:24)
[2019-07-12] MEDS ORDERED: Magnesium Replacement Protocol 1 EACH MISC MISCELLANE PRN (11:05)
[2019-07-12] MEDS: MORPHINE SULFATE IR 15 MG TABLET PO PRN ×5 (11:07→23:30)
[2019-07-12 11:16] LABS: ALT 59 U/L (21-72); AST 51 U/L (17-59); African American GFR (CKD) >90 (>60 ml/min/1.73 sqM); Albumin 3.1 g/dL (3.5-5.0); Alkaline Phosphatase 196 U/L (38-126); Anion Gap 11 mmol/L; Blood Urea Nitrogen 16 mg/dL (9-20); Calcium 9.2 mg/dL (8.4-10.2); Carbon Dioxide 25 mmol/L (22-30); Chloride 96 mmol/L (98-107); Glucose 124 mg/dL (74-99); Non-African American GFR(CKD) >90 (>60 ml/min/1.73 sqM); Potassium 4.1 mmol/L (3.5-5.1); Sodium 132 mmol/L (137-145); Total Bilirubin 0.4 mg/dL (0.2-1.3); Total Protein 6.1 g/dL (6.3-8.2)
--- NOTE | 2019-07-12 14:31 | P.PN ---
Subjective Progress Note Date: 07/12/19 Principal diagnosis: Admitted for intractable chest pain from cough. On immunotherapy for small cell lung cancer In follow-up today patient's cough is better controlled, his pain is also controlled but unfortunately, he is on 2 short acting pain medications. He is denying fevers, hemoptysis, appetite is still fair to good, no nausea, abdominal pain, constipation, swelling or bleeding. Patient is still independently ambulatory, mild to moderate weakness. Objective - Vital Signs Vital signs: Vital Signs Temp 97.7 F 07/12/19 07:00 Pulse 104 H 07/12/19 11:20 Resp 16 07/12/19 07:00 BP 118/82 07/12/19 07:00 Pulse Ox 96 07/12/19 07:00 Intake & Output 07/11/19 07/12/19 07/12/19 18:59 06:59 18:59 Intake Total 210 Balance 210 Intake: Oral 210 Other: # Voids 3 - Constitutional General appearance: Present: no acute distress, thin - EENT Eyes: Present: anicteric sclerae, EOMI - Respiratory Respiratory: right: diminished, bilateral: CTA - Cardiovascular Rhythm: regular - Peripheral edema leg Peripheral Edema: bilateral: None - Gastrointestinal General gastrointestinal: Present: normal bowel sounds, soft - Neurologic Neurologic: Present: CNII-XII intact - Musculoskeletal Musculoskeletal: Present: generalized weakness, strength equal bilaterally - Psychiatric Psychiatric: Present: A&O x's 3, intact judgment & insight - Labs CBC & Chem 7: 07/10/19 17:10 07/12/19 10:46 Labs: Abnormal Lab Results - Last 24 Hours (Table) 07/12/19 07/12/19 Range/Units 10:46 10:46 Sodium 132 L (137-145) mmol/L Chloride 96 L (98-107) mmol/L Glucose 124 H (74-99) mg/dL Magnesium 1.4 L (1.6-2.3) mg/dL Alkaline Phosphatase 196 H (38-126) U/L Total Protein 6.1 L (6.3-8.2) g/dL Albumin 3.1 L (3.5-5.0) g/dL Microbiology - Last 24 Hours (Table) 07/10/19 17:10 Blood Culture - Preliminary Blood No Growth after 24 hours Assessment and Plan (1) Small cell lung cancer Narrative/Plan: Pt is s/p 2 cycles of dual agent immunotherapy. Scan was reviewed with Dr. Aguilar. At this time this would not be considered disease progression-it is too early in treatment to evaluate due to immunotherapy phenomenon of pseudoprogression. This was reviewed with pt and son. Plan is to continue immunotherapy on schedule. Pt does not have symptoms r/t or thought to be associated with immune therapy side effects. LFT changes are improved today, changes no other concerns re: immnotherapy side effects. Cont low dose oral steroids as prescribed. Current Visit: Yes Status: Chronic Priority: Medium Code(s): C34.90 - MALIGNANT NEOPLASM OF UNSP PART OF UNSP BRONCHUS OR LUNG SNOMED Code(s): 879437401 (2) Metastatic cancer to brain Current Visit: Yes Status: Chronic Priority: Medium Code(s): C79.31 - SECONDARY MALIGNANT NEOPLASM OF BRAIN SNOMED Code(s): 13985373 (3) Pain Narrative/Plan: Greater than 30 minutes discussion with patient and his son regarding pain management. It is not reasonable to have too short acting pain medications being utilized at the same time. After discussing the options (scheduled twice a day long-acting morphine with Piercy for breakthrough pain versus immediate release morphine), patient has opted for oral immediate release morphine, dose was converted from IV to oral (discussed case with pharmacist). Patient will be provided with a 7 day prescription. He is due to see Dr. Aguilar next week in the office. At that time changes can be made in the pain management regimen. Patient was encouraged to continue utilizing Motrin every 6-8 hours when necessary. We reviewed in great detail prevention of narcotic-induced constipation. Current Visit: Yes Status: Acute Priority: High Code(s): R52 - PAIN, UNS PECIFIED SNOMED Code(s): 78344575 (4) Hypomagnesemia Narrative/Plan: Replacement protocol ordered Current Visit: Yes Status: Acute Priority: Medium Code(s): E83.42 - HYPOMAGNESEMIA SNOMED Code(s): 598446734 Plan: Will change PPI to H2 antagonist-literature suggests that PPIs can interfere with immunotherapy Time with Patient: Greater than 30
[2019-07-12] MEDS: MAGNESIUM SULFATE-D5W PMX 1 GM in DEXTROSE/WATER 1 100ML.BAG IVPB SCH ×3 (16:49→20:24)
--- NOTE | 2019-07-12 17:19 | PN ---
PROGRESS NOTE CHIEF COMPLAINT: Shortness of breath and intractable left chest pain. HISTORY OF PRESENT ILLNESS: This gentleman is doing a little bit better and pain is being controlled a little bit better than it was when he came in. He is complaining of constipation. PHYSICAL EXAMINATION: He remains pale. He is awake and alert. Breath sounds are diminished on the left. Cardiac exam is normal. Abdomen is soft, nontender. IMPRESSION: 1. Carcinoma of the lung. 2. Intractable chest pain. 3. Chronic obstructive pulmonary disease. 4. Constipation. PLAN: 1. Try to progress activity. 2. Stool softeners. 3. Change his Motrin to q.i.d. 4. Work on a discharge plan. MMODL / IJN: [id number] /
[2019-07-13] MEDS: MORPHINE SULFATE IR 15 MG TABLET PO PRN ×4 (05:57→15:03)
[2019-07-13] MEDS: methylPREDNISolone SOD SUCCI 125 MG/2 ML VIAL IV SCH ×2 (05:57→11:05)
[2019-07-13] MEDS: BENZONATATE 100 MG CAP PO PRN (06:01)
[2019-07-13] MEDS: IPRATROPIUM-ALBUTEROL 3 ML NEB INHALATION SCH ×3 (07:17→15:36)
[2019-07-13] MEDS: SYMBICORT 160-4.5 MCG INHALER INHALATION SCH (07:17)
[2019-07-13 08:26] VITALS: RESP 12
[2019-07-13] MEDS: FAMOTIDINE 20 MG TAB PO SCH (08:47)
[2019-07-13] MEDS: DEXAMETHASONE 4 MG TAB PO SCH (08:48)
[2019-07-13 09:06] LABS: ALT 70 U/L (21-72); AST 58 U/L (17-59); African American GFR (CKD) >90 (>60 ml/min/1.73 sqM); Albumin 3.2 g/dL (3.5-5.0); Alkaline Phosphatase 195 U/L (38-126); Anion Gap 11 mmol/L; Blood Urea Nitrogen 15 mg/dL (9-20); Carbon Dioxide 27 mmol/L (22-30); Chloride 95 mmol/L (98-107); Glucose 138 mg/dL (74-99); Magnesium 1.9 mg/dL (1.6-2.3); Non-African American GFR(CKD) >90 (>60 ml/min/1.73 sqM); Potassium 4.2 mmol/L (3.5-5.1); Sodium 133 mmol/L (137-145); Total Bilirubin 0.5 mg/dL (0.2-1.3); Total Protein 6.1 g/dL (6.3-8.2)
[2019-07-13] MEDS: HYDROcodone/APAP 10-325MG 1 EACH TAB PO PRN (11:06)
--- NOTE | 2019-07-13 14:26 | PN ---
PROGRESS NOTE CHIEF COMPLAINT: Intractable left-sided chest pain and shortness of breath. HISTORY OF PRESENT ILLNESS: This gentleman is doing better. His pain is better controlled and he is not nearly as short of breath. He has had no fever, chills, cough, etc. PHYSICAL EXAMINATION: Breath sounds are diminished on the left, but they are present. Cardiac exam is normal. Abdomen is soft, nontender. IMPRESSION: 1. Carcinoma of the lung. 2. Chronic obstructive pulmonary disease. PLAN: Increase activity and probably try to send home soon pending recommendations of Oncology. MMODL / IJN: [id number] /
[2019-07-13 15:37] VITALS: BP 133/87; TEMP 97.9
[2019-07-13 16:00] VITALS: PULSE 86
--- NOTE | 2019-07-13 17:59 | DS ---
DISCHARGE SUMMARY CHIEF COMPLAINT: Acute left-sided chest pain and shortness of breath. HISTORY OF PRESENT ILLNESS/PHYSICAL EXAMINATION: The details of this man's history and physical can be found in the initial workup. LABORATORY STUDIES: While he was in the hospital he had laboratory studies, details of which can be found in the laboratory section of his chart. COURSE IN THE HOSPITAL: After admission he was placed on bedrest and started on intravenous fluids and analgesics. His shortness of breath was easily allayed. Analgesics were increased and his pain was improved. He was seen by Oncology, who felt that he could be discharged, and he is to be started on new therapy in several days. FINAL DIAGNOSES: 1. Intractable left-sided chest pain. 2. Acute dyspnea. 3. Small-cell carcinoma of the lung. 4. Malnutrition. OPERATIONS: None. CONSULTATIONS: Oncology. He is improved. MMODL / IJN: [id number] /
== END 2019-07-13 17:12 | disposition home or self-care (01) ==
LOC: EC 16:11 → 4SSUR 22:14 → INTOOBSV 07-12 13:18 → OBSVTOIN 07-12 13:18 → UNDODISIN 07-13 17:12
PROVIDERS: ADMIT Family Medicine; ATTEND Family Medicine
DX: G89.3 Neoplasm related pain (acute) (chronic) (principal); C34.92 Malignant neoplasm of unspecified part of left bronchus or lung; C77.0 Secondary and unspecified malignant neoplasm of lymph nodes of head, face and neck; C79.31 Secondary malignant neoplasm of brain; E46 Unspecified protein-calorie malnutrition; Z68.1 Body mass index [BMI] 19.9 or less, adult; J44.1 Chronic obstructive pulmonary disease with (acute) exacerbation; E83.42 Hypomagnesemia; R07.89 Other chest pain; R05 Cough; K59.00 Constipation, unspecified; Z79.899 Other long term (current) drug therapy; Z79.52 Long term (current) use of systemic steroids; Z87.891 Personal history of nicotine dependence; Z82.49 Family history of ischemic heart disease and other diseases of the circulatory system; Z83.3 Family history of diabetes mellitus; Z82.3 Family history of stroke; Z80.9 Family history of malignant neoplasm, unspecified
CPT/HCPCS: 96376; 96361; 96374; 99285; 36415; 94640 ×7; 94760 ×2; 93005; 83880; 80053 ×3; 82550; 83735 ×3; 84484; 85025; 85610; 85730; 87040; 71046; 71275; G0378 ×5; J8540 ×3; J2270 ×3; J2930 ×3; J3475; Q9967

== ENCOUNTER 2019-07-15 05:30 | Inpatient (IN) | payer OTHER ==
[2019-07-15] MEDS ORDERED: SODIUM CHLORIDE 0.9% 500 ML 500 ML IV STA (05:56)
[2019-07-15] MEDS ORDERED: IPRATROPIUM-ALBUTEROL 3 ML NEB INHALATION STA (06:13)
[2019-07-15] MEDS ORDERED: guaiFENesin-Coden 100-10MG/5ML 10 ML CUP PO STA (06:14)
--- NOTE | 2019-07-15 06:19 | ED ---
SOB HPI - General Chief Complaint: Shortness of Breath Stated Complaint: Difficulty Breathing, Cancer patient Time Seen by Provider: 07/15/19 05:55 Source: patient, RN notes reviewed Mode of arrival: ambulatory Limitations: no limitations - History of Present Illness Initial Comments: 59-year-old male presented to the emergency department to complaint of cough, shortness of breath. Patient states that he was recently admitted for similar complaints and states he has worsened. Patient states she was discharged with pain meds, antibiotics. Patient states is not helping. Patient does have underlying left lung cancer currently being treated by Dr. Aguilar he has had chemotherapy 2 weeks ago along with radiation. Patient states he is scheduled for treatment today. Patient denies any reported fevers at home. Patient states his cough is productive at time and states that it's persistent and not alleviated with medications at home. He has been using his inhaler denies using nebulizer at this time. Patient denies any associated nausea, vomiting diarrhea constipation or abdominal discomfort. - Related Data Home Medications Medication Instructions Recorded Confirmed Albuterol Inhaler [Ventolin Hfa 2 puff INHALATION RT-Q6H PRN 09/27/18 07/10/19 Inhaler] Ergocalciferol (Vitamin D2) 50,000 unit PO SA 10/22/18 07/10/19 [Vitamin D2] Ibuprofen 800 mg PO BID PRN 01/14/19 07/10/19 Benzonatate [Tessalon Perles] 100 mg PO TID PRN 07/10/19 07/10/19 Dexamethasone 1 mg PO BID 07/10/19 07/10/19 Fluticasone/Salmeterol 1 puff INHALATION RT-BID 07/10/19 07/10/19 [Fluticasone-Salmeterol 232-14] Hydrocodone/Acetaminophen [[place] 1 tab PO TID PRN 07/10/19 07/10/19 10-325] Omeprazole 20 mg PO BID 07/10/19 07/10/19 Prochlorperazine [Compazine] 10 mg PO Q6H PRN 07/10/19 07/10/19 Previous Rx's Medication Instructions Recorded Morphine Sulfate Ir [MSIR] 15 mg PO Q3HR PRN #100 tablet 07/13/19 Allergies Allergy/AdvReac Type Severity Reaction Status Date / Time No Known Allergies Allergy Verified 07/15/19 05:38 Review of Systems ROS Statement: Those systems with pertinent positive or pertinent negative responses have been documented in the HPI. ROS Other: All systems not noted in ROS Statement are negative. Past Medical History Past Medical History: Cancer, COPD Additional Past Medical History / Comment(s): pilonidal cyst, I&D of cyst on buttocks in January 2018, required IV antibiotics and hospitalization. small cell lung cancer, with mets to lymph node in neck and brain., last chemo and radiation in jun 2019 History of Any Multi-Drug Resistant Organisms: None Reported Additional Past Surgical History / Comment(s): hemmorhoid surgery, fistula repair,facial reconstructions approx 25yrs Past Anesthesia/Blood Transfusion Reactions: No Reported Reaction Past Psychological History: No Psychological Hx Reported Smoking Status: Former smoker Past Alcohol Use History: None Reported, Unable to Obtain, Daily Past Drug Use History: None Reported - Past Family History Father Family Medical History: CVA/TIA, Diabetes Mellitus Mother Family Medical History: Cancer Brother(s) Family Medical History: Myocardial Infarction ([place]) General Exam Limitations: no limitations General appearance: alert, in no apparent distress Head exam: Present: atraumatic, normocephalic, normal inspection Eye exam: Present: normal appearance, PERRL, EOMI. Absent: scleral icterus, con junctival injection, periorbital swelling ENT exam: Present: normal exam, normal oropharynx, mucous membranes moist, TM's normal bilaterally, normal external ear exam Neck exam: Present: normal inspection, full ROM ( ). Absent: tenderness, meningismus, lymphadenopathy Respiratory exam: Present: wheezes, decreased breath sounds. Absent: normal lung sounds bilaterally, respiratory distress, rales, rhonchi, stridor Cardiovascular Exam: Present: normal rhythm, tachycardia, normal heart sounds. Absent: systolic murmur, diastolic murmur, rubs, gallop, clicks GI/Abdominal exam: Present: soft, normal bowel sounds. Absent: distended, tenderness, guarding, rebound, rigid Neurological exam: Present: alert, oriented X3, CN II-XII intact, reflexes n ormal. Absent: motor sensory deficit Skin exam: Present: warm, dry, intact, normal color. Absent: rash Course Vital Signs 07/15/19 07/15/19 07/15/19 05:35 06:18 06:32 Temperature 97.8 F Pulse Rate 136 H 117 H 109 H Respiratory 25 H Rate Blood Pressure 101/71 O2 Sat by Pulse 95 Oximetry 07/15/19 07:59 Temperature Pulse Rate 109 H Respiratory 20 Rate Blood Pressure 120/89 O2 Sat by Pulse 94 L Oximetry Medical Decision Making - Medical Decision Making chest x-ray shows what appears developing left sided pneumonia. Patient's cough is consistent with pneumonia, mild leukocytosis increasing from prior visit. Patient will be admitted to Dr. Altamirano consults Dr. deluca - Lab Data Result diagrams: 07/15/19 06:24 07/15/19 06:24 Lab Results 07/15/19 07/15/19 07/15/19 Range/Units 06:24 06:24 06:24 WBC 15.0 H (3.8-10.6) k/uL RBC 4.13 L (4.30-5.90) m/uL Hgb 12.3 L (13.0-17.5) gm/dL Hct 38.3 L (39.0-53.0) % MCV 92.6 (80.0-100.0) fL MCH 29.7 (25.0-35.0) pg MCHC 32.1 (31.0-37.0) g/dL RDW 13.9 (11.5-15.5) % Plt Count 553 H (150-450) k/uL Neutrophils % 84 % Lymphocytes % 6 % Monocytes % 3 % Eosinophils % 6 % Basophils % 1 % Neutrophils # 12.6 H (1.3-7.7) k/uL Lymphocytes # 0.8 L (1.0-4.8) k/uL Monocytes # 0.4 (0-1.0) k/uL Eosinophils # 0.9 H (0-0.7) k/uL Basophils # 0.1 (0-0.2) k/uL PT (9.0-12.0) sec INR (<1.2) APTT (22.0-30.0) sec Sodium 132 L (137-145) mmol/L Potassium 4.1 (3.5-5.1) mmol/L Chloride 93 L (98-107) mmol/L Carbon Dioxide 29 (22-30) mmol/L Anion Gap 10 mmol/L BUN 19 (9-20) mg/dL Creatinine 0.89 (0.66-1.25) mg/dL Est GFR (CKD-EPI)AfAm >90 (>60 ml/min/1.73 sqM) Est GFR (CKD-EPI)NonAf >90 (>60 ml/min/1.73 sqM) Glucose 94 (74-99) mg/dL Plasma Lactic Acid Hardeep 2.3 H* (0.7-2.0) mmol/L Calcium 9.0 (8.4-10.2) mg/dL Magnesium 1.6 (1.6-2.3) mg/dL Total Bilirubin 0.9 (0.2-1.3) mg/dL AST 99 H (17-59) U/L ALT 114 H (21-72) U/L Alkaline Phosphatase 238 H (38-126) U/L Troponin I (0.000-0.034) ng/mL NT-Pro-B Natriuret Pep pg/mL Total Protein 6.3 (6.3-8.2) g/dL Albumin 3.3 L (3.5-5.0) g/dL 07/15/19 07/15/19 07/15/19 Range/Units 06:24 06:24 06:24 WBC (3.8-10.6) k/uL RBC (4.30-5.90) m/uL Hgb (13.0-17.5) gm/dL Hct (39.0-53.0) % MCV (80.0-100.0) fL MCH (25.0-35.0) pg MCHC (31.0-37.0) g/dL RDW (11.5-15.5) % Plt Count (150-450) k/uL Neutrophils % % Lymphocytes % % Monocytes % % Eosinophils % % Basophils % % Neutrophils # (1.3-7.7) k/uL Lymphocytes # (1.0-4.8) k/uL Monocytes # (0-1.0) k/uL Eosinophils # (0-0.7) k/uL Basophils # (0-0.2) k/uL PT 10.6 (9.0-12.0) sec INR 1.0 (<1.2) APTT 25.4 (22.0-30.0) sec Sodium (137-145) mmol/L Potassium (3.5-5.1) mmol/L Chloride (98-107) mmol/L Carbon Dioxide (22-30) mmol/L Anion Gap mmol/L BUN (9-20) mg/dL Creatinine (0.66-1.25) mg/dL Est GFR (CKD-EPI)AfAm (>60 ml/min/1.73 sqM) Est GFR (CKD-EPI)NonAf (>60 ml/min/1.73 sqM) Glucose (74-99) mg/dL Plasma Lactic Acid Hardeep (0.7-2.0) mmol/L Calcium (8.4-10.2) mg/dL Magnesium (1.6-2.3) mg/dL Total Bilirubin (0.2-1.3) mg/dL AST (17-59) U/L ALT (21-72) U/L Alkaline Phosphatase (38-126) U/L Troponin I <0.012 (0.000-0.034) ng/mL NT-Pro-B Natriuret Pep 786 pg/mL Total Protein (6.3-8.2) g/dL Albumin (3.5-5.0) g/dL - EKG Data -: EKG Interpreted by Ri EKG Comments: EKG performed at 6:16 sinus tachycardia rate of 116 TN 122 QRS 84 QT/QTC 324/[address] elevation or depression. Disposition Clinical Impression: Pneumonia involving left lung, Dyspnea, Small cell lung cancer Disposition: ADMITTED IP TO THIS HOSP Condition: Fair Referrals: Dionicio Altamirano MD [Primary Care Provider] - 1-2 days
[2019-07-15 06:40] LABS: Basophils # (A) 0.1 k/uL (0-0.2); Basophils % (A) 1 %; Eosinophils # (A) 0.9 k/uL (0-0.7); Eosinophils % (A) 6 %; HCT 38.3 % (39.0-53.0); HGB 12.3 gm/dL (13.0-17.5); Lymphocytes # (A) 0.8 k/uL (1.0-4.8); Lymphocytes % (A) 6 %; MCH 29.7 pg (25.0-35.0); MCHC 32.1 g/dL (31.0-37.0); MCV 92.6 fL (80.0-100.0); Mean Platelet Volume 6.3; Monocytes # (A) 0.4 k/uL (0-1.0); Monocytes % (A) 3 %; Neutrophils # (A) 12.6 k/uL (1.3-7.7); Neutrophils % (A) 84 %; Platelet Count 553 k/uL (150-450); RBC 4.13 m/uL (4.30-5.90); RDW 13.9 % (11.5-15.5)
[2019-07-15 06:48] LABS: Partial Thromboplastin Time 25.4 sec (22.0-30.0); Prothrombin Time 10.6 sec (9.0-12.0)
[2019-07-15 06:50] LABS: ALT 114 U/L (21-72); AST 99 U/L (17-59); African American GFR (CKD) >90 (>60 ml/min/1.73 sqM); Albumin 3.3 g/dL (3.5-5.0); Alkaline Phosphatase 238 U/L (38-126); Anion Gap 10 mmol/L; Blood Urea Nitrogen 19 mg/dL (9-20); Carbon Dioxide 29 mmol/L (22-30); Chloride 93 mmol/L (98-107); Glucose 94 mg/dL (74-99); Magnesium 1.6 mg/dL (1.6-2.3); Potassium 4.1 mmol/L (3.5-5.1); Sodium 132 mmol/L (137-145); Total Bilirubin 0.9 mg/dL (0.2-1.3); Total Protein 6.3 g/dL (6.3-8.2)
--- NOTE | 2019-07-15 07:06 | XR ---
EXAMINATION TYPE: XR chest 2V DATE OF EXAM: 07/15/2019 HISTORY: difficulty breathing. REFERENCE: Previous study dated 07/10/2019. FINDINGS: The lungs are overinflated. There is prominence of the left hilum. There is a developing de nsity in the left lower lung. This would BE suspicious for neoplasm. The heart is not enlarged pleura l spaces are clear. IMPRESSION: 1. COPD. 2. ENLARGEMENT OF THE LEFT HILUM. 3. DEVELOPING OPACITY IN THE LEFT LOWER LUNG MAY REPRESENT DEVELOPING NEOPLASM.
[2019-07-15] MEDS ORDERED: ACETAMINOPHEN TAB 325 MG TAB PO STA (08:03)
[2019-07-15] MEDS ORDERED: PIPERACILLIN-TAZOBACTAM 3.375 GM in SODIUM CHLORIDE 0.9% 100 ML IVPB STA (08:05)
[2019-07-15] MEDS ORDERED: PNEUMONIA PROTOCOL UTILIZED 1 EACH MISC PO PRN (08:05)
[2019-07-15] MEDS ORDERED: LEVOFLOXACIN 750MG-D5W PMX 750 MG in DEXTROSE/WATER 1 150ML.BAG IVPB STA (08:05)
[2019-07-15] MEDS ORDERED: MORPHINE SULFATE 4 MG/ML SYRINGE IVP STA (08:15)
[2019-07-15] MEDS ORDERED: BENZONATATE 100 MG CAP PO PRN (10:15)
[2019-07-15] MEDS ORDERED: PROCHLORPERAZINE 10 MG TAB PO PRN (10:15)
--- NOTE | 2019-07-15 12:24 | HP ---
HISTORY AND PHYSICAL CHIEF COMPLAINT: Shortness of breath. HISTORY OF PRESENT ILLNESS: This is another recent admission for this 59-year-old white male who is struggling with advancing carcinoma of the lung. He just went home the other day after an episode of shortness of breath and chest pain. He is on morphine at home. He suddenly had difficulty breathing and came back to the emergency room where he had copious amounts of mucus heard on both sides and probable new infiltrate. He has had no hemoptysis. He is scheduled to start a new therapy program this week, but he continues to deteriorate. REVIEW OF SYSTEMS: He is having headaches, but he has central nervous system metastases. He has had no change in vision. He has had no hemoptysis. He has had no nausea, vomiting. He has had no diarrhea. The remainder of his review of systems is unremarkable. Past medical history, family history, personal and social histories are otherwise unchanged. PHYSICAL EXAMINATION: Blood pressure is 112/69 with a pulse of 82, temperature 98.4. In general, he appeared to be chronically ill, pale and uncomfortable. Skin was dry. Head, ears, eyes, nose, mouth, and throat were unremarkable. Chest demonstrated copious rhonchi heard throughout both lung carrion. Cardiac exam demonstrates tachycardia. The abdomen is flat, soft. Extremities: Normal. Neurologically he is intact. IMPRESSION: 1. Bronchial pneumonia. 2. Respiratory failure. 3. Advancing carcinoma of the lung. 4. Chronic obstructive pulmonary disease. PLAN: 1. Bed rest. 2. IV fluids. 3. Updrafts. 4. IV antibiotics. 5. Consult with Oncology and Infectious Disease. MMODL / IJN: [id number] /
[2019-07-15] MEDS: IPRATROPIUM-ALBUTEROL 3 ML NEB INHALATION SCH ×4 (12:50→23:15)
[2019-07-15] MEDS: MORPHINE SULFATE IR 15 MG TABLET PO PRN ×3 (15:11→23:20)
[2019-07-15] MEDS: PIPERACILLIN-TAZOBACTAM 3.375 GM in SODIUM CHLORIDE 0.9% 100 ML IVPB SCH ×2 (15:11→23:20)
--- NOTE | 2019-07-15 15:30 | P.CONS ---
History of Present Illness - Reason for Consult Consult date: 07/15/19 Acute respiratory failure. Small cell lung cancer - History of Present Illness This is a 59-year-old white male, unknown patient of our service, with metastatic small cell lung cancer. He was recently admitted on 07/10/19, and discharged on 07/14/19 for shortness of breath. He was seen in consult at that time. The patient improved with steroids, there is also an antibiotic and was discharged home. However he woke up this morning, with severe coughing, productive of copious amounts of clear to yellowish sputum, as well as recurrent severe shortness of breath. He therefore came back to the emergency room and wa s readmitted. Chest x-ray this admission appeared to show some increased opacity in the left lower lobe compared to x-ray done on 07/10/19. For details of his malignancy history, please refer to consult note from 07/11/19. The patient has developed progression recently, and has been started on a new double immunotherapy regimen with Yervoy and Opdivo. Review of Systems Constitutional: Reports chronic pain, Reports poor appetite, Reports weakness, Reports weight loss Eyes: denies blurred vision, denies pain Ears: deny: decreased hearing, ear discharge, earache, tinnitus Ears, nose, mouth and throat: Denies headache, Denies sore throat Cardiovascular: Reports shortness of breath Respiratory: Reports congestion, Reports cough with sputum, Reports dyspnea Gastrointestinal: Denies abdominal pain, Denies diarrhea, Denies nausea, Denies vomiting Genitourinary: Reports as per HPI Musculoskeletal: Reports muscle weakness Integumentary: Denies pruritus, Denies rash Neurological: Reports weakness Endocrine: Reports fatigue, Reports weight change Hematologic/Lymphatic: Reports as per HPI Past Medical History Past Medical History: Cancer, COPD Additional Past Medical History / Comment(s): pilonidal cyst, I&D of cyst on buttocks in January 2018, required IV antibiotics and hospitalization. small cell lung cancer, with mets to lymph node in neck and brain., last chemo and radiation in jun 2019 History of Any Multi-Drug Resistant Organisms: None Reported Additional Past Surgical History / Comment(s): hemmorhoid surgery, fistula repai r,facial reconstructions approx 25yrs Past Anesthesia/Blood Transfusion Reactions: No Reported Reaction Past Psychological History: No Psychological Hx Reported Smoking Status: Former smoker Past Alcohol Use History: None Reported, Unable to Obtain, Daily Additional Past Alcohol Use History / Comment(s): start smoking 1969, stop in Sep 2018 Past Drug Use History: None Reported - Past Family History Father Family Medical History: CVA/TIA, Diabetes Mellitus Mother Family Medical History: Cancer Brother(s) Family Medical History: Myocardial Infarction ([place]) Medications and Allergies Home Medications Medication Instructions Recorded Confirmed Type Albuterol Inhaler [Ventolin Hfa 2 puff INHALATION RT-Q6H PRN 09/27/18 07/15/19 History Inhaler] Ergocalciferol (Vitamin D2) 50,000 unit PO SA 10/22/18 07/15/19 History [Vitamin D2] Ibuprofen 800 mg PO BID PRN 01/14/19 07/15/19 History Benzonatate [Tessalon Perles] 100 mg PO TID PRN 07/10/19 07/15/19 History Dexamethasone 1 mg PO BID 07/10/19 07/15/19 History Fluticasone/Salmeterol 1 puff INHALATION RT-BID 07/10/19 07/15/19 History [Fluticasone-Salmeterol 232-14] Omeprazole 20 mg PO BID 07/10/19 07/15/19 History Prochlorperazine [Compazine] 10 mg PO Q6H PRN 07/10/19 07/15/19 History Morphine Sulfate Ir [MSIR] 15 mg PO Q3HR PRN #100 tablet 07/13/19 07/15/19 Rx Allergies Allergy/AdvReac Type Severity Reaction Status Date / Time No Known Allergies Allergy Verified 07/15/19 08:18 Physical Exam Vitals: Vital Signs Temp Pulse Pulse Resp BP BP Pulse Ox 07/15/19 13:06 128 H 07/15/19 12:50 128 H 07/15/19 09:44 98.4 F 82 16 112/69 96 07/15/19 09:08 97.9 F 109 H 22 128/94 92 L 07/15/19 07:59 109 H 20 120/89 94 L 07/15/19 06:32 109 H 07/15/19 06:18 117 H 07/15/19 05:35 97.8 F 136 H 25 H 101/71 95 Intake and Output 07/15/19 07/15/19 07/15/19 06:59 14:59 22:59 Other: # Voids 3 Weight 62.596 kg 60 kg - Constitutional General appearance: mild distress (Due to cough) - EENT Eyes: EOMI, PERRLA ENT: hearing grossly normal, normal oropharynx - Neck Neck: no lymphadenopathy Thyroid: bilateral: normal size - Respiratory Respiratory: right: wheezing, left: diminished, dullness - Cardiovascular Rhythm: regular Heart sounds: normal: S1, S2 - Gastrointestinal General gastrointestinal: normal bowel sounds, soft - Integumentary Integumentary: normal - Neurologic Neurologic: CNII-XII intact - Musculoskeletal Musculoskeletal: generalized weakness, strength equal bilaterally - Psychiatric Psychiatric: A&O x's 3, appropriate affect Results CBC & Chem 7: 07/15/19 06:24 07/15/19 06:24 Labs: Abnormal Lab Results - Last 24 Hours (Table) 07/15/19 07/15/19 07/15/19 Range/Units 06:24 06:24 06:24 WBC 15.0 H (3.8-10.6) k/uL RBC 4.13 L (4.30-5.90) m/uL Hgb 12.3 L (13.0-17.5) gm/dL Hct 38.3 L (39.0-53.0) % Plt Count 553 H (150-450) k/uL Neutrophils # 12.6 H (1.3-7.7) k/uL Lymphocytes # 0.8 L (1.0-4.8) k/uL Eosinophils # 0.9 H (0-0.7) k/uL Sodium 132 L (137-145) mmol/L Chloride 93 L (98-107) mmol/L Plasma Lactic Acid Hardeep 2.3 H* (0.7-2.0) mmol/L AST 99 H (17-59) U/L ALT 114 H (21-72) U/L Alkaline Phosphatase 238 H (38-126) U/L Albumin 3.3 L (3.5-5.0) g/dL Chest x-ray: report reviewed CT scan - chest: report reviewed Assessment and Plan (1) Pneumonia involving left lung Narrative/Plan: The patient says x-ray this admission appears to indicate increasing opacity in the left lower lobe. He had a computed tomography scan during his previous admission, but had confirmed known progression of his underlying malignancy, with increasing size of the left lower lobe mass causing evidence of obstruction in the left lower zone airways, among other findings - Therefore the concern during this presentation is progressive obstruction causing additional loss of lung volume in the left lower lobe, as well as postoperative pneumonia. Defer to the admitting service for treatment plans with recurrent IV steroids, antibiotics, as well as, an ID consult. I will also consult radiation oncology, as well as pulmonary medicine for evaluation of the left lower lobe see if the patient would be a candidate for any palliative procedure to improve airway patency acutely. Case discussed in detail with the pulmonary service Current Visit: Yes Status: Acute Code(s): J18.9 - PNEUMONIA, UNSPECIFIED ORGANISM SNOMED Code(s): 559342242 (2) Small cell lung cancer Narrative/Plan: The patient was recently confirmed to have progression and has been placed on double immunotherapy. His recent CTA still showed some progression, but this is too early for us to expect a response from his type of regimen. In fact at this stage increase in size of the lesions can be seen due to inflammation (total progression). Therefore the plan will be to continue his regimen as an outpatient once acute problems are resolved sufficiently Current Visit: Yes Status: Chronic Priority: Medium Code(s): C34.90 - MALIGNANT NEOPLASM OF UNSP PART OF UNSP BRONCHUS OR LUNG SNOMED Code(s): 795104567 Plan: Defer to the admitting service and other consultants for management of his other medical problems
--- NOTE | 2019-07-15 15:41 | P.CNPUL ---
History of Present Illness Consult date: 07/15/19 Reason for consult: dyspnea, lung mass History of present illness: Pleasant 59-year-old male patient with known history of small cell lung cancer. This patient was diagnosed via bronchoscopy under the care of Dr. Chatman. The patient has lost significant amount of weight. He carries more than [id number] smoking history. He came to us initially with a left hilar mass with condyloma ration of mediastinal lymphadenopathy. The biopsy confirmed the diagnosis. PET scan staging showed a left hilar mass with mediastinal lymphadenopathy in addition to right supraclavicular lymph node without any distant metastases. Bronchoscopy revealed endobronchial disease in the left mainstem bronchus consistent with small cell lung cancer. MRI of the brain showed small lesions consistent with metastases and the patient was given brain radiation. Following that the patient was given 6 cycles of systemic chemotherapy including ak chin-based regimen and MANAGER QA-16. His January CAT scan of the chest shows improvement however subsequent CAT scan of the chest that was done in April 2019 showed interval progression with increase in the size of the mediastinal mass. Based on that, the patient was started immunotherapy and the patient has received 2 cycles of Opdivo to the hospital. He came into the hospital on 07/11/2019 for worsening shortness of breath. His chest x-ray showed left hilar mass. CAT scan of the chest was done and it was negative for pulmonary embolism. There was left airway narrowing with increased right lower lobe atelectasis. There was narrowing of the distal left mainstem pulmonary artery and its branches due to the mediastinal mass. There was also a left hilar/mediastinal neoplasm which has increased in size compared to April 2019. The left inferior pulmonary vein was also included from the right and left abras ion. The SVC was patent. The liver also had increased in the size and the numbers of the lesions which had doubled in size and number compared to the previous study. There was also evidence of bone metastases. After being treated in the hospital, the patient got discharged home yesterday and within 24 hours of being discharged, the patient came back with worsening shortness of breath and cough and is producing copious amount of mucus that seems to be nonpurulent. No hemoptysis. He is unable to clear up his throat completely and he feels that he is drowning in secretions. No fever. No chills. No chest pain for now. He has a poor appetite and he continues to lose weight. Review of Systems Constitutional: Reports fatigue, Reports poor appetite, Reports weakness, Reports weight loss Eyes: denies as per HPI, denies blurred vision, denies bulging eye, denies decreased vision, denies diplopia, denies discharge, denies dry eye, denies irritation, denies itching, denies pain, denies photophobia, denies loss of peripheral vision, denies loss of vision, denies tunnel vision/blind spots Ears: deny: decreased hearing, ear discharge, earache, tinnitus Ears, nose, mouth and throat: Reports as per HPI Breasts: absent: as per HPI, gynecomastia Cardiovascular: Reports claudication, Reports decreased exercise tolerance, R eports dyspnea on exertion, Reports rapid heart beat, Reports shortness of breath Respiratory: Reports congestion, Reports cough, Reports cough with sputum, Reports dyspnea, Reports wheezing Gastrointestinal: Reports as per HPI Genitourinary: Reports as per HPI Musculoskeletal: Reports as per HPI Musculoskeletal: absent: ankle pain, ankle stiffness, ankle swelling Integumentary: Reports as per HPI Neurological: Reports as per HPI Psychiatric: Reports as per HPI Endocrine: Reports as per HPI Hematologic/Lymphatic: Reports as per HPI Allergic/Immunologic: Reports as per HPI Past Medical History Past Medical History: Cancer, COPD Additional Past Medical History / Comment(s): COPD, stage IV small cell lung cancer, history of pilonidal cyst post I and D History of Any Multi-Drug Resistant Organisms: None Reported Additional Past Surgical History / Comment(s): hemmorhoid surgery, fistula repair,facial reconstructions approx 25yrs Past Anesthesia/Blood Transfusion Reactions: No Reported Reaction Past Psychological History: No Psychological Hx Reported Smoking Status: Former smoker Past Alcohol Use History: None Reported, Unable to Obtain, Daily Additional Past Alcohol Use History / Comment(s): start smoking 1969, stop in Sep 2018 Past Drug Use History: None Reported - Past Family History Father Family Medical History: CVA/TIA, Diabetes Mellitus Mother Family Medical History: Cancer (Mother had known cancer of the exact type is not clear.) Brother(s) Family Medical History: Myocardial Infarction ([place]) Medications and Allergies Home Medications Medication Instructions Recorded Confirmed Type Albuterol Inhaler [Ventolin Hfa 2 puff INHALATION RT-Q6H PRN 09/27/18 07/15/19 History Inhaler] Ergocalciferol (Vitamin D2) 50,000 unit PO SA 10/22/18 07/15/19 History [Vitamin D2] Ibuprofen 800 mg PO BID PRN 01/14/19 07/15/19 History Benzonatate [Tessalon Perles] 100 mg PO TID PRN 07/10/19 07/15/19 History Dexamethasone 1 mg PO BID 07/10/19 07/15/19 History Fluticasone/Salmeterol 1 puff INHALATION RT-BID 07/10/19 07/15/19 History [Fluticasone-Salmeterol 232-14] Omeprazole 20 mg PO BID 07/10/19 07/15/19 History Prochlorperazine [Compazine] 10 mg PO Q6H PRN 07/10/19 07/15/19 History Morphine Sulfate Ir [MSIR] 15 mg PO Q3HR PRN #100 tablet 07/13/19 07/15/19 Rx Allergies Allergy/AdvReac Type Severity Reaction Status Date / Time No Known Allergies Allergy Verified 07/15/19 08:18 Physical Exam Vitals: Vital Signs Temp Pulse Pulse Resp BP BP Pulse Ox 07/15/19 13:06 128 H 07/15/19 12:50 128 H 07/15/19 09:44 98.4 F 82 16 112/69 96 07/15/19 09:08 97.9 F 109 H 22 128/94 92 L 07/15/19 07:59 109 H 20 120/89 94 L 07/15/19 06:32 109 H 07/15/19 06:18 117 H 07/15/19 05:35 97.8 F 136 H 25 H 101/71 95 Intake and Output 07/15/19 07/15/19 07/15/19 06:59 14:59 22:59 Other: # Voids 3 Weight 62.596 kg 60 kg Gen. appearance, comfortable likely distress. Not using excessive muscle breathing. He has alopecia related to previous radiation therapy to his had. Head exam was generally normal. There was no scleral icterus or corneal arcus. Mucous membranes were moist. Neck was supple and without jugular venous distension, thyromegaly, or carotid bruits. Carotids were easily palpable bilaterally. There was no adenopathy. Lungs sounds are diminished specially in the left lung base along with scattered rhonchi and scattered external wheeze. Cardiac exam revealed the PMI to be normally situated and sized. The rhythm was regular and no extrasystoles were noted during several minutes of auscultation. The first and second heart sounds were normal and physiologic splitting of the second heart sound was noted. There were no murmurs, rubs, clicks, or gallops. Abdominal exam revealed normal bowel sounds. The abdomen was soft, non-tender, and without masses, organomegaly, or appreciable enlargement of the abdominal aorta. Examination of the extremities revealed easily palpable radial, femoral and pedal pulses. There was no cyanosis, clubbing or edema. Examination of the skin revealed no evidence of significant rashes, suspicious appearing nevi or other concerning lesions. Neurologically is awake and alert and there is no focal neurological deficits. Results - Laboratory Findings CBC and BMP: 07/15/19 06:24 07/15/19 06:24 PT/INR, D-dimer PT 10.6 sec (9.0-12.0) 07/15/19 06:24 INR 1.0 (<1.2) 07/15/19 06:24 Abnormal lab findings: Abnormal Labs 07/15/19 07/15/19 07/15/19 06:24 06:24 06:24 WBC 15.0 H RBC 4.13 L Hgb 12.3 L Hct 38.3 L Plt Count 553 H Neutrophils # 12.6 H Lymphocytes # 0.8 L Eosinophils # 0.9 H Sodium 132 L Chloride 93 L Plasma Lactic Acid Hardeep 2.3 H* AST 99 H ALT 114 H Alkaline Phosphatase 238 H Albumin 3.3 L - Diagnostic Findings Chest x-ray: image reviewed CT scan - chest: image reviewed Assessment and Plan Plan: 1 stage IV small cell lung cancer with significant narrowing of the distal bronchus intermedius in addition to have bulky mediastinal mass causing mass effect on the pulmonary vein and artery. The patient has metastases to his liver and skeletal system and brain and he has received total brain radiation. Currently is on immunotherapy and he is already received 2 doses of Opdivo and overall response has been suboptimal as the patient has seen progression of the disease between April and May 2019 2 acute COPD exacerbation, superimposed left lower lobe pneumonia/postobstructive pneumonia cannot be completely excluded 3 extensive weight loss 4 history of smoking, quit in general 2019 5 [employer] MANAGER metastases post radiation therapy and the patient is currently on Decadron And I'm going to discontinue the Decadron and put the patient on Solu-Medrol 60 mg every 6 hours. Continue DuoNeb about treatments, q 4 hours. As Perforomist and Pulmicort neb last 2 minutes twice a day. Continue Zosyn. Continue Levaquin. Obtain sputum Gram stain and culture. Repeat chest x-ray in the morning. Unfortunately, I do see evidence of disease progression and when he to have a further discussion with oncology in regards to his treatment regimen and see alternatives knowing that after 2 doses of immunotherapy the patient disease has progressed. We'll continue to follow.
[2019-07-15] MEDS ORDERED: DEXAMETHASONE 4 MG TAB PO SCH (16:00)
[2019-07-15] MEDS: guaiFENesin-Coden 100-10MG/5ML 10 ML CUP PO SCH ×2 (17:36→21:47)
[2019-07-15] MEDS: HEPARIN SODIUM,PORCINE 5,000 UNIT/ML 1 ML VIAL SQ SCH ×2 (17:36→23:19)
[2019-07-15] MEDS: PANTOPRAZOLE 40 MG TABLET PO SCH (17:37)
[2019-07-15] MEDS: methylPREDNISolone SOD SUCCI 125 MG/2 ML VIAL IV SCH ×2 (17:37→23:19)
[2019-07-15] MEDS: FORMOTEROL FUMARATE 20 MCG/2 ML NEBU INHALATION SCH (20:22)
[2019-07-15] MEDS: BUDESONIDE 0.5 MG/2 ML NEBU INHALATION SCH (20:22)
[2019-07-16] MEDS: MORPHINE SULFATE IR 15 MG TABLET PO PRN ×6 (02:59→21:07)
[2019-07-16] MEDS: IPRATROPIUM-ALBUTEROL 3 ML NEB INHALATION SCH ×5 (03:36→19:28)
[2019-07-16] MEDS: guaiFENesin-Coden 100-10MG/5ML 10 ML CUP PO SCH ×4 (03:47→21:07)
[2019-07-16] MEDS: methylPREDNISolone SOD SUCCI 125 MG/2 ML VIAL IV SCH ×3 (06:02→17:56)
--- NOTE | 2019-07-16 07:46 | XR ---
EXAMINATION TYPE: XR chest 2V DATE OF EXAM: 07/16/2019 COMPARISON: 07/15/2019 HISTORY: 59-year-old male follow-up pneumonia TECHNIQUE: PA and lateral views FINDINGS: Heart normal size. Left perihilar opacity persists. No new consolidation or pleural effusion. IMPRESSION: Overall similar left perihilar neoplasm along with partial left lower lobe atelectasis and probable p atchy areas of adjacent pneumonitis.
[2019-07-16] MEDS: PANTOPRAZOLE 40 MG TABLET PO SCH ×2 (07:59→17:56)
[2019-07-16] MEDS: HEPARIN SODIUM,PORCINE 5,000 UNIT/ML 1 ML VIAL SQ SCH ×2 (07:59→17:57)
[2019-07-16] MEDS: LEVOFLOXACIN 750MG-D5W PMX 750 MG in DEXTROSE/WATER 1 150ML.BAG IVPB SCH (08:00)
[2019-07-16] MEDS: BUDESONIDE 0.5 MG/2 ML NEBU INHALATION SCH ×2 (08:21→19:28)
[2019-07-16] MEDS: FORMOTEROL FUMARATE 20 MCG/2 ML NEBU INHALATION SCH ×2 (08:21→19:28)
[2019-07-16] MEDS: PIPERACILLIN-TAZOBACTAM 3.375 GM in SODIUM CHLORIDE 0.9% 100 ML IVPB SCH ×2 (09:33→18:00)
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
--- NOTE | 2019-07-16 12:06 | P.PN ---
Subjective Progress Note Date: 07/16/19 Principal diagnosis: Dyspnea, lung mass Pleasant 59-year-old male patient with known history of small cell lung cancer. This patient was diagnosed via bronchoscopy under the care of Dr. Chatman. The patient has lost significant amount of weight. He carries more than 40-pack-yea r smoking history. He came to us initially with a left hilar mass with condyloma ration of mediastinal lymphadenopathy. The biopsy confirmed the diagnosis. PET scan staging showed a left hilar mass with mediastinal lymphadenopathy in addition to right supraclavicular lymph node without any distant metastases. Bronchoscopy revealed endobronchial disease in the left mainstem bronchus consistent with small cell lung cancer. MRI of the brain showed small lesions consistent with metastases and the patient was given brain radiation. 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 His January CAT scan of the chest shows improvement however subsequent CAT scan of the chest that was done in April 2019 showed interval progression with increase in the size of the mediastinal mass. Based on that, the patient was started immunotherapy and the patient has received 2 cycles of Opdivo to the hospital. He came into the hospital on 07/11/2019 for worsening shortness of breath. His chest x-ray showed left hilar mass. CAT scan of the chest was done and it was negative for pulmonary embolism. There was left airway narrowing with increased right lower lobe atelectasis. There was narrowing of the distal left mainstem pulmonary artery and its branches due to the mediastinal mass. There was also a left hilar/mediastinal neoplasm which has increased in size compared to April 2019. The left inferior pulmonary vein was also included from the right and left abrasion. The SVC was patent. The liver also had increased in the size and the numbers of the lesions which had doubled in size and number compared to the previous study. There was also evidence of bone metastases. After being treated in the hospital, the patient got discharged home yesterday and within 24 hours of being discharged, the patient came back with worsening shortness of breath and cough and is producing copious amount of mucus that seems to be no npurulent. No hemoptysis. He is unable to clear up his throat completely and he feels that he is drowning in secretions. No fever. No chills. No chest pain for now. He has a poor appetite and he continues to lose weight. On 07/16/2019 patient seen in follow-up on medical surgical floor. He is awake and alert, he remains on 2 L of oxygen his pulse ox is 95%, still has a congested cough but she is not bringing up much sputum, lung sounds are positive for diffuse rhonchi in the right lung, and diminished breath sounds on the left. He is on accommodation of Zosyn and Levaquin, and IV Solu-Medrol, he is receiving breathing treatments, he states he is breathing easier today compared to yesterday. Still has moderate dyspnea even with rest, but overall he states he doesn't have the sensation like he is going to . No new labs, blood cultures show no growth, sputum culture is pending, no fever or chills. Objective - Vital Signs Vital signs: Vital Signs Temp 97.6 F 07/16/19 07:00 Pulse 97 07/16/19 11:35 Resp 18 07/16/19 07:00 BP 107/76 07/16/19 07:00 Pulse Ox 95 07/16/19 07:00 Intake & Output 07/15/19 07/16/19 07/16/19 18:59 06:59 18:59 Weight 60 kg 60 kg Other: Voiding Method Toilet # Voids 3 0 - Exam GENERAL EXAM: Alert, pleasant 59-year-old cachectic white male on 2 L, with mild conversational dyspnea comfortable in no apparent distress. HEAD: Normocephalic/atraumatic. EYES: Normal reaction of pupils, equal size. Conjunctiva pink, sclera white. NOSE: Clear with pink turbinates. THROAT: No erythema or exudates. NECK: No masses, no JVD, no thyroid enlargement, no adenopathy. CHEST: No chest wall deformity. Symmetrical expansion. LUNGS:diffuse rhonchi throughout the right mid and lower lobe, and diminished breath sounds in the left base and left mid lung CVS: Regular rate and rhythm, normal S1 and S2, no gallops, no murmurs, no rubs ABDOMEN: Soft, nontender. No hepatosplenomegaly, normal bowel sounds, no gu arding or rigidity. EXTREMITIES: No clubbing, no edema, no cyanosis, 2+ pulses and upper and lower e xtremities. MUSCULOSKELETAL: Muscle strength and tone normal. SPINE: No scoliosis or deformity SKIN: No rashes CENTRAL NERVOUS SYSTEM: Alert and oriented -3. No focal deficits, tone is normal in all 4 extremities. PSYCHIATRIC: Alert and oriented -3. Appropriate affect. Intact judgment and insight. - Labs CBC & Chem 7: 07/15/19 06:24 07/15/19 06:24 Labs: Microbiology - Last 24 Hours (Table) 07/15/19 08:43 Blood Culture - Preliminary Blood No Growth after 24 hours 07/15/19 13:03 Gram Stain - Preliminary Sputum Sputum Culture - Preliminary Assessment and Plan Plan: Assessment: 1 stage IV small cell lung cancer with significant narrowing of the distal bronchus intermedius in addition to have bulky mediastinal mass causing mass effect on the pulmonary vein and artery. The patient has metastases to his liver and skeletal system and brain and he has received total brain radiation. 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 Sputum cultures pending, patient is afebrile, continue Zosyn and Levaquin. Overall prognosis is guarded. We'll continue to follow I performed a history & physical examination of the patient and discussed their management with my nurse practitioner, Marya Ceja. I reviewed the nurse practitioner's note and agree with the documented findings and plan of care. Lung sounds are positive for diffuse rhonchi in the right lung, and diminished breath sounds in the left. The findings and the impression was discussed with the patient. I attest to the documentation by the nurse practitioner. Time with Patient: Less than 30
--- NOTE | 2019-07-16 12:22 | PN ---
PROGRESS NOTE CHIEF COMPLAINT: Intractable left-sided pain, shortness of breath. HISTORY OF PRESENT ILLNESS: This gentleman is not feeling any better. He is still very short of breath and still having a great deal of pain in the left chest area. Headaches are present, but slightly better than they have been. REVIEW OF SYSTEMS: Otherwise unremarkable. He has had no confusion or visual changes. PHYSICAL EXAMINATION: He remains pale and chronically ill in appearance. Gaze is conjugate. Chest demonstrates poor breath sounds on the left with rhonchi. The right side of the chest is fairly clear. The cardiac exam is normal and the abdomen is soft, nontender. IMPRESSION: 1. Advanced small cell carcinoma of the left lung with intractable pain and progressive shortness of breath. 2. Chronic obstructive pulmonary disease. PLAN: Continue with current program and await further guidance from Oncology. He is supposed to be starting with immunotherapy this week. MMODL / BRISEIDAN: [id number] /
[2019-07-16] MEDS: ONDANSETRON 4 MG/2 ML VIAL IVP PRN ×2 (12:24→17:56)
[2019-07-16] MEDS ORDERED: ONDANSETRON 4 MG/2 ML VIAL IVP STA (14:03)
[2019-07-16] MEDS: LORazepam 2 MG/ML INJ IV PRN (14:27)
--- NOTE | 2019-07-16 21:06 | P.PN ---
Subjective Progress Note Date: 07/16/19 Principal diagnosis: Nausea and vomiting During evalaution patient had emesis while assessing. Objective - Vital Signs Vital signs: Vital Signs Temp 97.6 F 07/16/19 19:40 Pulse 90 07/16/19 19:57 Resp 16 07/16/19 19:40 BP 124/83 07/16/19 19:40 Pulse Ox 98 07/16/19 19:40 Intake & Output 07/16/19 07/16/19 07/17/19 06:59 18:59 06:59 Intake Total 296 Balance 296 Weight 60 kg Intake: Oral 296 Other: Voiding Method Toilet # Voids 0 1 # Bowel Movements 0 - Exam - Constitutional General appearance: mild distress (Due to cough) - EENT Eyes: EOMI, PERRLA ENT: hearing grossly normal, normal oropharynx - Neck Neck: no lymphadenopathy Thyroid: bilateral: normal size - Respiratory Respiratory: right: wheezing, left: diminished, dullness - Cardiovascular Rhythm: regular Heart sounds: normal: S1, S2 - Gastrointestinal General gastrointestinal: normal bowel sounds, soft - Integumentary Integumentary: normal - Neurologic Neurologic: CNII-XII intact - Musculoskeletal Musculoskeletal: generalized weakness, strength equal bilaterally - Psychiatric Psychiatric: A&O x's 3, appropriate affect - Labs CBC & Chem 7: 07/15/19 06:24 07/15/19 06:24 Labs: Microbiology - Last 24 Hours (Table) 07/15/19 08:43 Blood Culture - Preliminary Blood No Growth after 24 hours 07/15/19 13:03 Gram Stain - Preliminary Sputum Sputum Culture - Preliminary Assessment and Plan Plan: Pneumonia involving left lung The patient says x-ray this admission appears to indicate increasing opacity in the left lower lobe. He had a computed tomography scan during his previous admission, but had confirmed known progression of his underlying malignancy, with increasing size of the left lower lobe mass causing evidence of obstruction in the left lower zone airways, among other findings - Therefore the concern during this presentation is progressive obstruction causing additional loss of lung volume in the left lower lobe, as well as postoperative pneumonia. Defer to the admitting service for treatment plans with recurrent IV steroids, antibiotics, as well as, an ID consult. I will also consult radiation oncology, as well as pulmonary medicine for evaluation of the left lower lobe see if the patient would be a candidate for any palliative procedure to improve airway patency acutely. Small cell lung cancer: - The patient was recently confirmed to have progression and has been placed on double immunotherapy. His recent CTA still showed some progression, but this is too early for us to expect a response from his type of regimen. In fact at this stage increase in size of the lesions can be seen due to inflammation (total progression). Therefore the plan will be to continue his regimen as an outpatient once acute problems are resolved sufficiently Neoplastic related Pain: - Discharged home on short acting morphine, although now returned, this was managing pain, denies constipation. - add long acting - bowel regimen Intractable Nausea and vomiting - Add ZOfran IV PRN and Ativan PRN - repeat mri brain - abdominal flat plate Defer to the admitting service and other consultants for management of his other medical problems
--- NOTE | 2019-07-16 21:37 | XR ---
EXAMINATION TYPE: XR abdomen 2V DATE OF EXAM: 07/16/2019 COMPARISON: 04/22/2019 INDICATION: Nausea vomiting TECHNIQUE: Abdomen is examined in the upright view supine view compared to 04/22/2019 FINDINGS: There is normal colonic bowel gas present. No mass effect is evident. No suspicious air-fluid levels or differential air-fluid levels are present. No free air is present. Psoas margins are normal. Hepatomegaly is present. No suspicious calcifications are evident. IMPRESSION: 1. Hepatomegaly
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
[2019-07-17] MEDS: IPRATROPIUM-ALBUTEROL 3 ML NEB INHALATION SCH ×7 (00:28→23:38)
[2019-07-17] MEDS: HEPARIN SODIUM,PORCINE 5,000 UNIT/ML 1 ML VIAL SQ SCH ×4 (00:38→23:50)
[2019-07-17] MEDS: PIPERACILLIN-TAZOBACTAM 3.375 GM in SODIUM CHLORIDE 0.9% 100 ML IVPB SCH ×4 (00:39→23:51)
[2019-07-17] MEDS: methylPREDNISolone SOD SUCCI 125 MG/2 ML VIAL IV SCH ×5 (00:39→23:50)
[2019-07-17] MEDS: MORPHINE SULFATE IR 15 MG TABLET PO PRN ×5 (00:40→19:46)
[2019-07-17] MEDS: ONDANSETRON 4 MG/2 ML VIAL IVP PRN ×3 (01:01→09:21)
[2019-07-17] MEDS: guaiFENesin-Coden 100-10MG/5ML 10 ML CUP PO SCH ×4 (04:27→21:24)
[2019-07-17] MEDS: FORMOTEROL FUMARATE 20 MCG/2 ML NEBU INHALATION SCH ×2 (07:59→20:52)
[2019-07-17] MEDS: BUDESONIDE 0.5 MG/2 ML NEBU INHALATION SCH ×2 (07:59→20:52)
[2019-07-17] MEDS: LEVOFLOXACIN 750MG-D5W PMX 750 MG in DEXTROSE/WATER 1 150ML.BAG IVPB SCH (08:04)
[2019-07-17] MEDS: PANTOPRAZOLE 40 MG TABLET PO SCH ×2 (08:04→18:47)
[2019-07-17] MEDS ORDERED: MORPHINE SULFATE ER 15 MG TABLET PO SCH (09:00)
--- NOTE | 2019-07-17 09:49 | P.CONS ---
History of Present Illness - Reason for Consult Consult date: 07/16/19 dyspnea, lung cancer Requesting physician: Jovan Jacques - Chief Complaint dyspnea - History of Present Illness The patient is a 59-year-old male with a history of extensive stage small cell lung cancer initially diagnosed in September 2018 with brain metastasis at the time of diagnosis. He underwent 6 cycles of systemic therapy and subsequently underwent whole brain radiation finishing in January 2019. Unfortunately, the patient had progression of his chest disease on May 12, 2019. He also had a few new PIER MASTER lesions treated with radiosurgery on June 28, 2019. The patient has dense started on dual immunotherapy and has completed 2 cycles. He now presents hospitalized secondary to progressive cough and dyspnea. The patient was admitted to the hospital on July 15, 2019 when he reports he was unable to catch his breath at home. The patient notes that he had been significantly more dyspneic as well as having a nonproductive cough. The patient was previously hospitalized the prior weeks to his readmission, and CT examination at that time showed progressive left hilar and mediastinal disease progression with narrowing of the mainstem bronchus and lower lobe airways. This imaging study also revealed an increase in his liver metastatic disease. The patient reports that his dyspnea is slightly improved since his hospitalization, and he is currently on 2 L of oxygen. He notes he is able to ambulate to the bathroom, but is not able to go any further distances. He reports a harsh sounding cough, but he notes he is unable to bring up any phlegm. He denies hemoptysis. He is also reporting consistent left-sided chest pain approximately 5-6 out of 10. This is slightly improved with morphine. He reports he has also been feeling nauseous over the past week. He notes intermittent headaches as well. Review of Systems Constitutional: Denies chills, Denies fever Eyes: denies blurred vision Ears: deny: decreased hearing Ears, nose, mouth and throat: Reports dysphagia, Reports headache, Denies hoarseness Cardiovascular: Reports chest pain, Reports dyspnea on exertion Respiratory: Reports cough, Reports dyspnea, Denies hemoptysis Gastrointestinal: Denies abdominal pain, Denies change in bowel habits Musculoskeletal: Denies frequent falls Integumentary: Denies rash Neurological: Reports headaches, Denies ataxia, Denies confusion, Denies convulsions, Denies double vision Psychiatric: Reports depression Past Medical History Past Medical History: Cancer, COPD Additional Past Medical History / Comment(s): COPD, stage IV small cell lung cancer, history of pilonidal cyst post I and D History of Any Multi-Drug Resistant Organisms: None Reported Additional Past Surgical History / Comment(s): hemmorhoid surgery, fistula repair,facial reconstructions approx 25yrs Past Anesthesia/Blood Transfusion Reactions: No Reported Reaction Past Psychological History: No Psychological Hx Reported Smoking Status: Former smoker Past Alcohol Use History: None Reported, Unable to Obtain, Daily Additional Past Alcohol Use History / Comment(s): Patient was a smoker of 2 packs per day for 49 years and quit September 2018. He denies any marijuana, street drug or alcohol use. He works in [employer]. He is currently retired. He lives at home alone but his son and lacmboap-ed-pja live in an apartment above his. There are no pets in the home. No service. His last travel was to [place] in July of last year. Past Drug Use History: None Reported - Past Family History Father Family Medical History: CVA/TIA, Diabetes Mellitus Mother Family Medical History: Cancer (Mother had known cancer of the exact type is not clear.) Brother(s) Family Medical History: Myocardial Infarction (OK) Medications and Allergies Home Medications Medication Instructions Recorded Confirmed Type Albuterol Inhaler [Ventolin Hfa 2 puff INHALATION RT-Q6H PRN 09/27/18 07/15/19 History Inhaler] Ergocalciferol (Vitamin D2) 50,000 unit PO SA 10/22/18 07/15/19 History [Vitamin D2] Ibuprofen 800 mg PO BID PRN 01/14/19 07/15/19 History Benzonatate [Tessalon Perles] 100 mg PO TID PRN 07/10/19 07/15/19 History Dexamethasone 1 mg PO BID 07/10/19 07/15/19 History Fluticasone/Salmeterol 1 puff INHALATION RT-BID 07/10/19 07/15/19 History [Fluticasone-Salmeterol 232-14] Omeprazole 20 mg PO BID 07/10/19 07/15/19 History Prochlorperazine [Compazine] 10 mg PO Q6H PRN 07/10/19 07/15/19 History Morphine Sulfate Ir [MSIR] 15 mg PO Q3HR PRN #100 tablet 07/13/19 07/15/19 Rx Allergies Allergy/AdvReac Type Severity Reaction Status Date / Time No Known Allergies Allergy Verified 07/15/19 08:18 Physical Exam Vitals: Vital Signs Temp Pulse Pulse Resp BP Pulse Ox 07/17/19 08:21 92 07/17/19 08:11 88 07/17/19 08:10 88 07/17/19 08:00 88 07/17/19 07:19 98.0 F 102 H 16 101/77 96 07/17/19 04:19 100 07/17/19 04:07 96 07/17/19 01:14 98.1 F 100 15 127/81 96 07/17/19 00:38 100 07/17/19 00:28 102 H 96 07/16/19 19:57 90 07/16/19 19:42 92 07/16/19 19:41 90 07/16/19 19:40 97.6 F 99 16 124/83 98 07/16/19 19:28 92 07/16/19 16:07 90 07/16/19 15:55 92 98 07/16/19 14:49 97.8 F 91 18 112/71 95 07/16/19 11:35 97 07/16/19 11:25 96 Intake and Output 07/16/19 07/17/19 07/17/19 22:59 06:59 14:59 Intake Total 396 100 330 Balance 396 100 330 Intake: Intake, IV Titration 100 100 Amount Piperacillin-Tazobactam 3 100 100 .375 gm In Sodium Chloride 0.9% 100 ml @ 25 mls/hr IVPB Q8HR [facility] Rx# :[id number] Oral 296 330 Other: Voiding Method Toilet # Voids 1 1 - Constitutional General appearance: no acute distress, thin - EENT Eyes: EOMI, PERRLA ENT: hearing grossly normal - Neck Neck: no lymphadenopathy - Respiratory Respiratory: left: diminished (left lower lung field diminished), bilateral: rhonchi - Cardiovascular Rhythm: regular - Gastrointestinal General gastrointestinal: no distended, no tenderness - Integumentary Integumentary: no cellulitis - Neurologic Neurologic: CNII-XII intact - Musculoskeletal Musculoskeletal: strength equal bilaterally - Psychiatric Psychiatric: A&O x's 3, appropriate affect, intact judgment & insight Results CBC & Chem 7: 07/15/19 06:24 07/15/19 06:24 Labs: Microbiology - Last 24 Hours (Table) 07/15/19 08:43 Blood Culture - Preliminary Blood No Growth after 24 hours Chest x-ray: report reviewed, image reviewed CT scan - chest: report reviewed, image reviewed Assessment and Plan Plan: The patient is a 59-year-old male with a history of extensive stage small cell lung cancer initially diagnosed in September 2018 with brain metastasis at the time of diagnosis. He underwent 6 cycles of systemic therapy and subsequently u nderwent whole brain radiation finishing in January 2019. Unfortunately, the patient had progression of his chest disease on May 12, 2019. He also had a few new PIER MASTER lesions treated with radiosurgery on June 28, 2019. The patient has dense started on dual immunotherapy and has completed 2 cycles. He now presents hospitalized secondary to progressive cough and dyspnea. 1. Disease progression in chest: The patient is likely having difficulty with recurrent pneumonia secondary to post obstruction from his progressive chest disease. His chest disease has not improved despite 2 cycles of immunotherapy, however it is noted that typically this is not enough time to assess adequate response. The patient also reports left sided chest discomfort which is constant in nature, likely owing to mass effect. I discussed with the patient, who is well known to Dr. Pennington, that he would be a candidate for palliative radiotherapy to the chest. I explained that this may help to shrink the primary mass, and this may improve his work of breathing as well as his chest discomfort. I discussed with the patient that this could be done in as few as 4-5 treatments. I explained he would first undergo CT simulation for treatment planning. Treatment will be delivered daily. I discussed potential side effects of this treatment which include, but are not limited to; fatigue, cough, dysphagia, and odynophagia. The patient is interested in trying to achieve some palliative relief of his symptoms. 2. Headache: The patient reports that his intermittent headache is similar to previous, however considering he has had recent radiosurgery would not be unreasonable to recheck an MRI of the brain. This has been ordered by medical oncology. We will await the results. 3. Extensive stage small-cell lung cancer: As detailed above, the patient unfortunately developed progression relatively shortly after finishing chemotherapy. The patient and his family understand his overall prognosis is poor. He expressed interest in attempting further therapy at this time, but if he has further functional decline hospice would be a preferred recommendation. Time with Patient: Greater than 30
[2019-07-17] MEDS: LORazepam 2 MG/ML INJ IV PRN (14:04)
--- NOTE | 2019-07-17 14:54 | PN ---
PROGRESS NOTE CHIEF COMPLAINT: Shortness of breath and left-sided chest pain. HISTORY OF PRESENT ILLNESS: This gentleman is about the same. Still having a lot of trouble with shortness of breath and pain and pressure in the left chest. He is going today for an MRI of the brain and then he is going to be given another course of radiation of his neoplasm. He is not feeling any better. Still feels short of breath. He is still having pain in the left chest. PHYSICAL EXAMINATION: Breath sounds are diminished in the left chest with rales and rhonchi anterior and posteriorly. IMPRESSION: 1. Small cell carcinoma of the left lung. 2. Increasing shortness of breath. 3. Headache. PLAN: He is going for an MRI of the brain today and then we are talking about a short, fast cycle of irradiation therapy. MMODL / IJN: [id number] /
--- NOTE | 2019-07-17 15:23 | P.PN ---
Subjective Progress Note Date: 07/17/19 Principal diagnosis: progression of small cell lung cancer Pleasant 59-year-old male patient with known history of small cell lung cancer. This patient was diagnosed via bronchoscopy under the care of Dr. Chatman. The patient has lost significant amount of weight. He carries more than [id number] smoking history. He came to us initially with a left hilar mass with condyloma ration of mediastinal lymphadenopathy. The biopsy confirmed the diagnosis. PET scan staging showed a left hilar mass with mediastinal lymphadenopathy in addition to right supraclavicular lymph node without any distant metastases. Bronchoscopy revealed endobronchial disease in the left mainstem bronchus consistent with small cell lung cancer. MRI of the brain showed small lesions consistent with metastases and the patient was given brain radiation. 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 His January CAT scan of the chest shows improvement however subsequent CAT scan of the chest that was done in April 2019 showed interval progression with increase in the size of the mediastinal mass. Based on that, the patient was started immunotherapy and the patient has received 2 cycles of Opdivo to the hospital. He came into the hospital on 07/11/2019 for worsening shortness of breath. His chest x-ray showed left hilar mass. CAT scan of the chest was done and it was negative for pulmonary embolism. There was left airway narrowing with increased right lower lobe atelectasis. There was narrowing of the distal left mainstem pulmonary artery and its branches due to the mediastinal mass. There was also a left hil ar/mediastinal neoplasm which has increased in size compared to April 2019. The left inferior pulmonary vein was also included from the right and left abrasion. The SVC was patent. The liver also had increased in the size and the numbers of the lesions which had doubled in size and number compared to the previous study. There was also evidence of bone metastases. After being treated in the hospital, the patient got discharged home yesterday and within 24 hours of being discharged, the patient came back with worsening shortness of breath and cough and is producing copious amount of mucus that seems to be nonpurulent. No hemoptysis. He is unable to clear up his throat completely and he feels that he is drowning in secretions. No fever. No chills. No chest pain for now. He has a poor appetite and he continues to lose weight. On 07/16/2019 patient seen in follow-up on medical surgical floor. He is awake and alert, he remains on 2 L of oxygen his pulse ox is 95%, still has a congested cough but she is not bringing up much sputum, lung sounds are positive for diffuse rhonchi in the right lung, and diminished breath sounds on the left. He is on accommodation of Zosyn and Levaquin, and IV Solu-Medrol, he is receiving breathing treatments, he states he is breathing easier today compared to yesterday. Still has moderate dyspnea even with rest, but overall he states he doesn't have the sensation like he is going to . No new labs, blood cultures show no growth, sputum culture is pending, no fever or chills. Reevaluated today on 07/17/2019, patient still complains of cough, congestion, shortness of breath, and unable to bring much sputum. Continues to have signi ficant rhonchi and wheezes bilaterally. Remains on bronchodilators including bronchodilators, antibiotics, and steroids. Obviously there is progression of his disease, patient has been seen by radiation oncology, and I believe at this point there is definite progression of his small cell lung cancer, May have to seriously consider hospice. Had a brief discussion with the patient, and explained to him that he should discuss the option of hospice with his oncologist. Objective - Vital Signs Vital signs: Vital Signs Temp 98.0 F 07/17/19 07:19 Pulse 92 07/17/19 08:21 Resp 16 07/17/19 07:19 BP 101/77 07/17/19 07:19 Pulse Ox 96 07/17/19 07:19 Intake & Output 07/16/19 07/17/19 07/17/19 18:59 06:59 18:59 Intake Total 296 200 430 Balance 296 200 430 Weight 60 kg Intake: Intake, IV Titration 200 Amount Piperacillin-Tazobactam 3 200 .375 gm In Sodium Chloride 0.9% 100 ml @ 25 mls/hr IVPB Q8HR [facility] Rx# :[id number] Oral 296 430 Other: Voiding Method Toilet # Voids 1 1 2 # Bowel Movements 0 - Exam GENERAL EXAM: Alert, pleasant 59-year-old cachectic white male on 2 L, with mild conversational dyspnea comfortable in no apparent distress. HEENT: PERRLA, EOMI, no icterus. No neck masses, no JVD. CHEST: No chest wall deformity. Symmetrical expansion. LUNGS:rhonchi and wheezes noted bilaterally more so on forced expiratory maneuver. CVS: Regular rate and rhythm, normal S1 and S2, no gallops, no murmurs, no rubs ABDOMEN: Soft, nontender. No hepatosplenomegaly, normal bowel sounds, no guarding or rigidity. EXTREMITIES: No clubbing, no edema, no cyanosis, 2+ pulses and upper and lower extremities. MUSCULOSKELETAL: Muscle strength and tone normal. SPINE: No scoliosis or deformity SKIN: No rashes CENTRAL NERVOUS SYSTEM: Alert and oriented -3. No focal deficits, tone is normal in all 4 extremities. PSYCHIATRIC: Alert and oriented -3. Appropriate affect. Intact judgment and insight. - Labs CBC & Chem 7: 07/15/19 06:24 07/15/19 06:24 Labs: Microbiology - Last 24 Hours (Table) 07/15/19 08:43 Blood Culture - Preliminary Blood No Growth after 48 hours 07/15/19 13:03 Gram Stain - Final Sputum Sputum Culture - Final Assessment and Plan Assessment: 1 stage IV small cell lung cancer with significant narrowing of the distal bronchus intermedius in addition to have bulky mediastinal mass causing mass effect on the pulmonary vein and artery. The patient has metastases to his liver and skeletal system and brain and he has received total brain radiation. 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 In the meantime continue present course of treatment including bronchodilators antibiotics and steroids. Not much to be added from our perspective, will follow on when necessary basis. Time with Patient: Less than 30
--- NOTE | 2019-07-17 16:34 | P.PN ---
Subjective Progress Note Date: 07/17/19 Principal diagnosis: Nausea and vomiting Status post radiation today, still nauseated, some mucus other is GI. Moving bowels. Pain is semi controlled. Objective - Vital Signs Vital signs: Vital Signs Temp 98.0 F 07/17/19 15:56 Pulse 99 07/17/19 16:14 Resp 18 07/17/19 16:14 BP 129/89 07/17/19 15:56 Pulse Ox 100 07/17/19 16:03 Intake & Output 07/16/19 07/17/19 07/17/19 18:59 06:59 18:59 Intake Total 296 200 430 Balance 296 200 430 Weight 60 kg 74 kg Intake: Intake, IV Titration 200 Amount Piperacillin-Tazobactam 3 200 .375 gm In Sodium Chloride 0.9% 100 ml @ 25 mls/hr IVPB Q8HR [facility] Rx# :[id number] Oral 296 430 Other: Voiding Method Toilet # Voids 1 1 2 # Bowel Movements 0 - Exam - Constitutional General appearance: mild distress (Due to cough) - EENT Eyes: EOMI, PERRLA ENT: hearing grossly normal, normal oropharynx - Neck Neck: no lymphadenopathy Thyroid: bilateral: normal size - Respiratory Respiratory: right: wheezing, left: diminished, dullness - Cardiovascular Rhythm: regular Heart sounds: normal: S1, S2 - Gastrointestinal General gastrointestinal: normal bowel sounds, soft - Integumentary Integumentary: normal - Neurologic Neurologic: CNII-XII intact - Musculoskeletal Musculoskeletal: generalized weakness, strength equal bilaterally - Psychiatric Psychiatric: A&O x's 3, appropriate affect - Labs CBC & Chem 7: 07/15/19 06:24 07/15/19 06:24 Labs: Microbiology - Last 24 Hours (Table) 07/15/19 08:43 Blood Culture - Preliminary Blood No Growth after 48 hours 07/15/19 13:03 Gram Stain - Final Sputum Sputum Culture - Final Assessment and Plan Plan: Pneumonia involving left lung The patient says x-ray this admission appears to indicate increasing opacity in the left lower lobe. He had a computed tomography scan during his previous admission, but had confirmed known progression of his underlying malignancy, with increasing size of the left lower lobe mass causing evidence of obstruction in the left lower zone airways, among other findings - Therefore the concern during this presentation is progressive obstruction causing additional loss of lung volume in the left lower lobe, as well as postop erative pneumonia. Defer to the admitting service for treatment plans with recurrent IV steroids, antibiotics, as well as, an ID consult. I will also consult radiation oncology, as well as pulmonary medicine for evaluation of the left lower lobe see if the patient would be a candidate for any palliative procedure to improve airway patency acutely. Small cell lung cancer: - The patient was recently confirmed to have progression and has been placed on double immunotherapy. His recent CTA still showed some progression, but this is too early for us to expect a response from his type of regimen. In fact at this stage increase in size of the lesions can be seen due to inflammation (total progression). Therefore the plan will be to continue his regimen as an out patient once acute problems are resolved sufficiently Neoplastic related Pain: - Discharged home on short acting morphine, although now returned, this was managing pain, denies constipation. - add long acting - bowel regimen Intractable Nausea and vomiting - Add ZOfran IV PRN and Ativan PRN - repeat mri brain - abdominal flat plate Defer to the admitting service and other consultants for management of his other medical problems
--- NOTE | 2019-07-17 17:51 | MR ---
EXAMINATION TYPE: MR brain wo/w con DATE OF EXAM: 07/17/2019 COMPARISON: 06/13/2019 HISTORY: metastatic brain, persistent emesis TECHNIQUE: Multiplanar, multisequence images of the brain and brainstem is performed without and with IV contras t, utilizing 6 mL intravenous Gadavist . There is cerebral cortical atrophy. There is no mass effect nor midline shift. There is no evidence o f intracranial hemorrhage. There are multiple patchy areas of increased signal in the periventricular white matter on the FLAIR images. Some of these are coalescent. Most of the lesions are less than 5 mm. Total number is approximately 25. The brainstem is intact. There is minimal ethmoid sinus mucosal thickening. Contrast images show a 8 mm ring-enhancing lesion in the lateral inferior right cerebellar hemisphere . There is a 4 mm enhancing focus in the lateral inferior left cerebellar hemisphere. There is ring-e nhancing lesion in the lateral left cerebral hemisphere near the cerebellar tentorium. This measures 8 mm. There is 3 mm nodular area of enhancement in the cortex of the inferior right temporal lobe. Th ere is a second enhancing cortical nodule inferior right temporal lobe measuring 4 mm. There is 4 mm tiny ring enhancing lesion superior lateral right cerebellar hemisphere. There is normal contrast opa cification of the venous sinuses. IMPRESSION: Multiple cerebellar lesions and tiny inferior right temporal lobe lesions consistent with metastatic disease. These appear increased slightly compared to last exam.
[2019-07-17 18:23] LABS: Basophils % (A) 0 %; Eosinophils % (A) 0 %; HCT 35.3 % (39.0-53.0); HGB 11.7 gm/dL (13.0-17.5); Lymphocytes # (A) 0.8 k/uL (1.0-4.8); Lymphocytes % (A) 5 %; MCH 30.6 pg (25.0-35.0); MCV 92.7 fL (80.0-100.0); Mean Platelet Volume 5.9; Monocytes # (A) 0.5 k/uL (0-1.0); Monocytes % (A) 3 %; Neutrophils % (A) 92 %; Platelet Count 527 k/uL (150-450); RBC 3.81 m/uL (4.30-5.90); RDW 13.8 % (11.5-15.5); WBC 18.5 k/uL (3.8-10.6)
[2019-07-17 19:12] LABS: ALT 76 U/L (21-72); AST 47 U/L (17-59); African American GFR (CKD) >90 (>60 ml/min/1.73 sqM); Albumin 3.1 g/dL (3.5-5.0); Alkaline Phosphatase 189 U/L (38-126); Amylase 69 U/L (30-110); Anion Gap 8 mmol/L; Blood Urea Nitrogen 16 mg/dL (9-20); Carbon Dioxide 29 mmol/L (22-30); Chloride 94 mmol/L (98-107); Glucose 131 mg/dL (74-99); Magnesium 1.6 mg/dL (1.6-2.3); Potassium 3.8 mmol/L (3.5-5.1); Sodium 131 mmol/L (137-145); Total Bilirubin 0.6 mg/dL (0.2-1.3); Total Protein 5.9 g/dL (6.3-8.2)
[2019-07-17] MEDS: MORPHINE SULFATE ER 30 MG TABLET PO SCH (21:24)
[2019-07-17] MEDS: SENNOSIDES-DOCUSATE SODIUM 1 EACH TAB PO SCH (21:24)
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
[2019-07-18] MEDS: guaiFENesin-Coden 100-10MG/5ML 10 ML CUP PO SCH ×4 (05:05→22:49)
[2019-07-18] MEDS: methylPREDNISolone SOD SUCCI 125 MG/2 ML VIAL IV SCH ×4 (05:05→23:38)
[2019-07-18] MEDS: IPRATROPIUM-ALBUTEROL 3 ML NEB INHALATION SCH ×6 (08:12→23:37)
[2019-07-18] MEDS: MORPHINE SULFATE ER 30 MG TABLET PO SCH ×2 (08:13→21:03)
[2019-07-18] MEDS: BUDESONIDE 0.5 MG/2 ML NEBU INHALATION SCH ×2 (08:13→19:52)
[2019-07-18] MEDS: PANTOPRAZOLE 40 MG TABLET PO SCH ×2 (08:13→17:27)
[2019-07-18] MEDS: SENNOSIDES-DOCUSATE SODIUM 1 EACH TAB PO SCH ×2 (08:13→21:03)
[2019-07-18] MEDS: FORMOTEROL FUMARATE 20 MCG/2 ML NEBU INHALATION SCH ×2 (08:13→20:07)
[2019-07-18] MEDS: LEVOFLOXACIN 750 MG TAB PO SCH (08:14)
[2019-07-18] MEDS: PIPERACILLIN-TAZOBACTAM 3.375 GM in SODIUM CHLORIDE 0.9% 100 ML IVPB SCH ×3 (08:15→23:38)
[2019-07-18] MEDS: HEPARIN SODIUM,PORCINE 5,000 UNIT/ML 1 ML VIAL SQ SCH ×3 (08:16→23:38)
[2019-07-18 11:29] VITALS: BMI 21.9
--- NOTE | 2019-07-18 12:01 | PN ---
PROGRESS NOTE CHIEF COMPLAINT: Carcinoma of the lung with shortness of breath, headache, chronic pain and confusion. HISTORY OF PRESENT ILLNESS: This gentleman had his MRI. There is some question as to whether or not he will go on for radiation therapy and/or immune therapy. Decision will be made as to whether not he is still a candidate for treatment and if the treatment is worthwhile. If so, he will continue the treatment and go home on palliative care. If it is determined that the treatment is futile, he will go home on hospice. PHYSICAL EXAMINATION: Breath sounds are still diminished on both sides and the cardiac exam is normal. IMPRESSION: 1. Small cell carcinoma of the lung with metastases to the brain. 2. Chronic obstructive pulmonary disease. 3. Headaches. 4. Confusion. PLAN: Await decision as to whether not he will go home with hospice or palliative care. He could be discharged any time. ELLY / KARTHIK: [id number] /
[2019-07-18] MEDS: MORPHINE SULFATE IR 15 MG TABLET PO PRN ×2 (12:28→17:26)
[2019-07-18] MEDS: LORazepam 2 MG/ML INJ IV PRN ×2 (13:27→21:33)
--- NOTE | 2019-07-18 14:34 | CDI ---
Documentation Clarification Form Date: 07/18/2019 2:09:54 PM From: Perla Bonilla RN CCDS Admit Date: 07/15/2019 8:52:00 AM Patient Name: Darrick Bolanos Visit Number: [id number] Discharge Date: ATTENTION: The Clinical Documentation Specialists (CDI) and [facility] Coding Staff appreciate your assistance in clarifying documentation. Please respond to the clarification below the line at the bottom and electronically sign. The CDI & [facility] Coding staff will review the response and follow-up if needed. Please note: Queries are made part of the Legal Health Record. If you have any questions, please contact the author of this message via ITS. Dr. Dionicio Altamirano The patient presents to Hospital evidence of sepsis and concerns pneumonia Documented in the ID consult 07/16/2019 and following Progress notes. History/Risk Factors: 59-year-old male presents to the ED with shortness of breath and a cough. Medical history COPD; Stage IV small cell lung cancer Clinical Indicators: WBC 07/15/2019 15.0 07/17/2019 18.5 Lactic acid: 07/15 2.3 1.4 Blood cultures: No growth after 72 hours Vitals signs on admission: 121//89 100 97.9 16 94% 2L Treatment: ID Consult: Dr Cheung The patient presents to Hospital evidence of sepsis and concerns pneumonia Antibiotics: 07/15/2019 Zosyn ivpb q 8 Hrs; Levaquin Ivpb q 24 hrs 07/18/2019 Levaquin 750mg po daily IV Bolus: 0.9ns 500cc bolus In your professional opinion, please clarify if these findings signify one of the following conditions, whether the condition is POA, and cause, if known: * Sepsis ruled out * Sepsis * Other, please specify * Unable to determine Identify the (suspected) organism SIRS Criteria (2 or more of the following may indicate SIRS): -Temperature < 96.8F (36C) or > 101.0F (38.3C) -Heart Rate > 90 bpm -Respiratory Rate > 20 breaths/min or PaCO2 < 32 mmHg -White Blood Cell Count > 12,000 or < 4,000 cells/mm3 or > 10% bands -Lactate >2.0 mmol/L (>4.0 is equivalent to septic shock) (Last Revision: December 2017) MTDD
--- NOTE | 2019-07-18 14:53 | CDI ---
Documentation Clarification Form Date: 07/18/2019 2:40:59 PM From: Perla Bonilla Phone: '[phone] Admit Date: 07/15/2019 8:52:00 AM Patient Name: Darrick Bolanos Visit Number: [id number] Discharge Date: ATTENTION: The Clinical Documentation Specialists (CDI) and [facility] Coding Staff appreciate your assistance in clarifying documentation. Please respond to the clarification below the line at the bottom and electronically sign. The CDI & [facility] Coding staff will review the response and follow-up if needed. Please note: Queries are made part of the Legal Health Record. If you have any questions, please contact the author of this message via ITS. Dr. Dionicio Altamirano Confusion is documented in your progress note 07/18/2019 History/Risk Factors: 59-year-old male presents to the ED with shortness of breath and a cough. Medical History - COPD; Stage IV small cell lung cancer with metastasis to the Brain and liver Clinical Indicators: Labs: WBC 07/15/2019 15.0 07/17/[address] Brain 07/17/2019 Multiple cerebellar lesions and Treatment: Duoneb q 4hrs scheduled; Pulmicort bid : Perforomist bid; Solumedrol 60mg iv q 6hrs; Antibiotics: 07/15/2019 Zosyn ivpb q 8 Hrs; Levaquin Ivpb q 24 hrs 07/18/2019 Levaquin 750mg po daily In your professional opinion, please clarify the etiology of the Confusion, if known. * Metabolic Encephalopathy (specify Type and Underlying Medical Illness) * Other condition (please specify) * Unable to determine (Last Revision: December 2017) MTDD
[2019-07-18] MEDS: ONDANSETRON 4 MG/2 ML VIAL IVP PRN (17:33)
[2019-07-18] MEDS: HYDROmorphone 1 MG/ML 1 ML SYRINGE IVP PRN (22:50)
[2019-07-19] MEDS: IPRATROPIUM-ALBUTEROL 3 ML NEB INHALATION SCH ×4 (03:05→15:50)
[2019-07-19] MEDS: methylPREDNISolone SOD SUCCI 125 MG/2 ML VIAL IV SCH ×2 (05:19→12:11)
[2019-07-19] MEDS: guaiFENesin-Coden 100-10MG/5ML 10 ML CUP PO SCH ×2 (05:19→10:06)
[2019-07-19] MEDS: HYDROmorphone 1 MG/ML 1 ML SYRINGE IVP PRN ×3 (05:51→13:38)
[2019-07-19] MEDS: BUDESONIDE 0.5 MG/2 ML NEBU INHALATION SCH (07:35)
[2019-07-19] MEDS: FORMOTEROL FUMARATE 20 MCG/2 ML NEBU INHALATION SCH (07:35)
[2019-07-19] MEDS: LEVOFLOXACIN 750 MG TAB PO SCH (08:51)
[2019-07-19] MEDS: PANTOPRAZOLE 40 MG TABLET PO SCH (08:52)
[2019-07-19] MEDS: MORPHINE SULFATE ER 30 MG TABLET PO SCH (08:52)
[2019-07-19] MEDS: HEPARIN SODIUM,PORCINE 5,000 UNIT/ML 1 ML VIAL SQ SCH ×2 (08:52→15:00)
[2019-07-19] MEDS: SENNOSIDES-DOCUSATE SODIUM 1 EACH TAB PO SCH (08:52)
[2019-07-19] MEDS: PIPERACILLIN-TAZOBACTAM 3.375 GM in SODIUM CHLORIDE 0.9% 100 ML IVPB SCH ×2 (08:52→15:00)
[2019-07-19] MEDS: ONDANSETRON 4 MG/2 ML VIAL IVP PRN (10:02)
[2019-07-19] MEDS: MORPHINE SULFATE IR 15 MG TABLET PO PRN (12:11)
[2019-07-19 15:19] VITALS: BP 113/81; RESP 17; TEMP 97.5
[2019-07-19 15:53] VITALS: PULSE 100
--- NOTE | 2019-07-19 21:56 | DS ---
DISCHARGE SUMMARY CHIEF COMPLAINT: Chest pain and shortness of breath. HISTORY OF PRESENT ILLNESS AND PHYSICAL EXAMINATION: Details of this man's history and physical can be found in the initial workup. LABORATORY STUDIES: While he was in the hospital he had laboratory studies, details of which can be found in the laboratory section of his chart. COURSE IN THE HOSPITAL: After admission he was placed on bedrest, started on intravenous fluids and analgesics. He was also on updrafts. He was seen by Pulmonology and Oncology. He continued to have progressive difficulty with shortness of breath, chest pain, and became more confused. It was thought that he might be a candidate for a combination of immuno- and chemotherapies, but it was finally determined that his disease was too advanced. The family was involved in the decision to place him on hospice and take him home. He will be discharged on July 19. FINAL DIAGNOSES: 1. Intractable chest pain and shortness of breath. 2. Metastatic small-cell carcinoma of the lung with metastases to brain and bone. 3. Chronic obstructive pulmonary disease. 4. Mental status changes. OPERATIONS: None. CONSULTATIONS: 1. Oncology. 2. Pulmonology. 3. Hospice. MMODL / IJN: [id number] /
--- NOTE | 2019-07-27 15:17 | MISC ---
MISCELLANOUS REPORT Sepsis ruled out. MMODL / IJN: [id number] /
--- NOTE | 2019-07-27 15:23 | MISC ---
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 MMODL / IJN: [id number] /
== END 2019-07-19 16:10 | disposition hospice, home (50) | DRG 193 ==
LOC: EC 05:30 → 4SSUR 08:52
PROVIDERS: ADMIT Family Medicine; ATTEND Family Medicine
DX: J18.0 Bronchopneumonia, unspecified organism (principal); E43 Unspecified severe protein-calorie malnutrition; C34.02 Malignant neoplasm of left main bronchus; C77.0 Secondary and unspecified malignant neoplasm of lymph nodes of head, face and neck; C78.7 Secondary malignant neoplasm of liver and intrahepatic bile duct; C79.31 Secondary malignant neoplasm of brain; C79.51 Secondary malignant neoplasm of bone; J44.0 Chronic obstructive pulmonary disease with (acute) lower respiratory infection; J98.11 Atelectasis; R64 Cachexia; E87.2 Acidosis; Z87.891 Personal history of nicotine dependence; G89.3 Neoplasm related pain (acute) (chronic); Z51.5 Encounter for palliative care; Z66 Do not resuscitate; Z68.21 Body mass index [BMI] 21.0-21.9, adult; Z82.49 Family history of ischemic heart disease and other diseases of the circulatory system; Z83.3 Family history of diabetes mellitus; Z92.21 Personal history of antineoplastic chemotherapy; Z92.3 Personal history of irradiation; Z60.2 Problems related to living alone; Z79.899 Other long term (current) drug therapy; R13.10 Dysphagia, unspecified; R41.0 Disorientation, unspecified; Z80.9 Family history of malignant neoplasm, unspecified; R51 Headache
CPT/HCPCS: 36415; 70553; 71046; 74019; 77290; 77307; 77332; 77334; 77336; 77387; 77412; 80053; 82150; 83605; 83690; 83735; 83880; 84484; 85025; 85610; 85730; 87040; 87070; 87205; 93005; 94640; 94760; 96361; 96374; 99285